=== PATIENT | female | born 1950 | race Caucasian/White ===

== ENCOUNTER 2016-09-08 15:52 | Inpatient (IN) | payer MEDICARE, MEDICAID ==
[~2016-09-08] VITALS: Ht 167.6 cm; Wt 70.8 kg
[~2016-09-08 15:52] MED LIST: AGM875T PO; ALBU8.5H2 INHALATION; ASPI-867 PO; ATEN25TA PO; ATOR20TA PO; CHOL200047 PO; CLOT30SO TOPICAL; DIPH50C PO; FLUT9.9S NS; GLAT20KI2 SUBQ; HUM100IN3 SUBQ; LEVO25TA5 PO; MAGN100T5 PO; MULT-1018 PO; MULT-946 PO; MUPI22OI2 TOPICAL; NYST60PO TP; OXYC5CAP4 PO; PAX20 PO; POLY17PO6 PO; TIZA4CAP PO; UBID100C25 PO; WARF2.5T82 PO
[2016-09-08 16:06] VITALS: BP 134/75; PULSE 84; RESP 22; O2SAT 99
--- NOTE | 2016-09-08 16:10 | ED.REPORT ---
HPI-Headache Date of Service Sep 08, 2016 ED Provider: Dr. Frank Yee M.D. A 66 year old female with a history of diabetes mellitus, MS, CVA, DVT, hypertension, seizures, chronic decubitus ulcer, and trigeminal neuralgia presents to the ED via EMS with right-sided jaw and gum pain onset today. The pain is severe, rated 10/10. The patient also reports swollen gums and a chronic decubitus ulcer worsening three days ago. Her son and registered nurse midwife reports reduced urination and reduced ROM of the jaw due to pain. The patient denies other symptoms. She was given 10mg oxycodone just prior to arrival, with no relief. The history is somewhat limited due patient's condition. Nursing Notes Stated Complaint: JAW AND HEAD PAIN Chief Complaint: General Complaint Nursing Notes Reviewed: Yes Allergies: Coded Allergies: Sulfa (Sulfonamide Antibiotics) (Verified Allergy, Severe, hives, 05/31/15 ) morphine (Verified Allergy, Severe, hives, 05/31/15) Scheduled Albuterol HFA (Proair HFA) 8.5 Gm Hfa.aer.ad 2 PUFFS INHALATION Q4H Amoxicillin/Clav K 875-125 mg (Amoxicillin/Clav K 875-125 mg) 875 Mg Tab 1 TAB PO BID Aspirin (Miniprin) 81 Mg Tablet.dr 81 MG PO DAILY Atenolol (Atenolol) 25 Mg Tablet 12.5 MG PO DAILY Atorvastatin (Lipitor) 20 Mg Tablet 20 MG PO HS Cholecalciferol (Vitamin D3) (Vitamin D3) 2,000 Unit Capsule 2,000 UNIT PO DAILY Clotrimazole 1% (Clotrimazole 1%) 30 Ml Solution 30 ML TOPICAL BID Diphenhydramine Hcl (Benadryl) 50 Mg Capsule 50 MG PO Q4-6H Fluticasone Propionate (Flonase Allergy Relief) 50 Mcg/Actuation [place].susp 9.9 ML NS DAILY Hum Insulin NPH/Reg Insulin Hm (HUMulin 70/30 U100 Insulin Kwikpen) 100 Unit/1 Ml Insuln.pen 35 UNIT SUBQ BID Levothyroxine (Levothyroxine) 25 Mcg Tablet 25 MCG PO DAILY MULTIVIT, IRON, MIN NO. 8, FA-Expunged Drug, ([id number] Drug, Do Not Renew!) 1 Each Tablet 1 EACH PO DAILY Magnesium Amino Acid Chelate (Magnesium) 100 Mg Tablet 100 MG PO BID Multivitamin (Multi Vitamin Daily) 1 Each Tablet 1 EACH PO DAILY Mupirocin (Mupirocin Ointment) 22 Gm Oint...g. 1 APPLIC TOPICAL BID Nystatin (Nystop) 60 Gm Powder 60 GM TP BID PARoxetine-Expunged Drug, Do Not Renew! (Paxil-Expunged Drug, Do Not Renew!) 20 Mg Tablet 50 MG PO DAILY Polyethylene Glycol 3350 (Miralax) 17 Gm Powd.pack 17 GM PO BID Tizanidine Hcl (Zanaflex) 4 Mg Capsule 4 MG PO BID Ubidecarenone (Co Q-10) 100 Mg Capsule 100 MG PO DAILY Warfarin Sodium (Warfarin Sodium) 2.5 Mg Tablet 2.5 MG PO DAILY Scheduled PRN oxyCODONE (oxyCODONE) 5 Mg Capsule 7.5 MG PO QID PRN PRN For Pain Miscellaneous Medications Glatiramer Acetate (Copaxone) 20 Mg Syringe 20 MG SUBQ Friday, , Fri General Time Seen by MD: 16:09 Chief Complaint Other (Jaw and Gum pain) Hx Obtained From: Patient, Son, EMS Arrived By: Ambulance Sudden in Onset?: No Onset Occurred: 5 - 8 hours ago Symptom Duration: Since onset Location: : Generalized (Right-sided jaw and gum pain) Quality: Painful Severity: Current: Moderate Severity: Maximum: Moderate Pertinent Negative: Relieved by nothing Related History: Reports: Hypertension, Trigeminal neuralgia Recent Healthcare: No recent doctor visit Similar Sx Previous: Yes Past Medical History Past Medical History Notes: Past Medical History 1. 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 There was a question of PFO, but apparently patient refused MARY, and this was at [facility]. 2. History of left proximal DVT in 2004. 3. Multiple sclerosis since 1993, as noted in the HPI. 4. Depression. 5. Hyperlipidemia. 6. Allergic rhinitis. 7. Urinary incontinence, requiring urostomy and previously had a suprapubic catheter, now has an ileal conduit with urostomy tube. 8. Insulin-dependent type 2 diabetes. 9. Hypertension. 10. History of asthma. 11. History of MRSA urinary tract infection with recurrent UTIs in the past. 12. Diastolic dysfunction and possible PFO on echo from March 2010. 13. History of seizures documented at [facility]. 14. Chronic wounds including decubitus ulcer 15. History of hypothyroidism. 16. Pseudomonas UTIs 17. Trigeminal Neuralgia Past Surgical History 1. Status post tubal ligation. 2. Status post umbilical hernia repair as a child. 3, History of partial ostectomy of sacral spine and coccygectomy in October 10, 2010. Smoking History Former Smoker Social History Lives with her son Other Social History: Good social support, Lives with children (Son), Local resident Ambulatory Status Wheelchair Review of Systems Review of Systems Note: + Right-sided jaw and gum pain, swollen gums, reduced ROM of jaw, decubitus ulcer Constitutional: Denies: Fever GI: Denies: Diarrhea, Vomiting Complete sys rev & neg: except as marked. Respiratory: Denies: Non-productive cough, Shortness of breath Female: Reports: Urination decreased Physical Exam Physical Exam Notes: Initial Vital Signs Vital Signs (First) Date Time Temp Pulse Resp B/P Pulse Ox O2 Delivery O2 Flow Rate FiO2 09/08/16 16:06 36.5 84 22 134/75 99 Room Air Initial VS: Reviewed Respiratory: Breath sounds normal, Clear to auscultation, No respiratory distress Cardiovascular: Regular rate & rhythm, Heart sounds normal Abdomen / GI: Soft, No guarding, No rebound Back: No CVA tenderness General/Constitutional: Awake, Alert Head / Eyes: Atraumatic, Normocephalic Temporal preauricular tenderness Neck: Supple, Full range of motion, No adenopathy ENT: Atraumatic, Airway patent, Mucous membranes moist No upper teeth No gingival lesion No gingival erythema or swelling Skin: Warm, Dry Decubitus Ulcer Notes: Extensive grade 2/3 pressure sores in [id number] diameter over sacrum/coccyx ANKLE/FOOT: Bilateral feet contractures Interpretation & Diagnostics Lab Results Interpretation Result Diagram: 09/08/16 1620 09/08/16 1620 Test 09/08/16 16:20 White Blood Count 6.7th/mm3 (3.8-10.1) Red Blood Count 3.84mil/mm3 (3.90-5.20) Hemoglobin 11.1g/dL (12.0-15.6) Hematocrit 36.2% (35.0-46.0) Mean Corpuscular Volume 94.3fL (81-100) Mean Corpuscular Hemoglobin 28.9pg (27.0-35.0) Mean Corpuscular Hemoglobin Concent 30.7% (32.0-37.0) Red Cell Distribution Width 17.6% (12.3-15.4) Platelet Count 358bil/L (150-400) Neutrophils (%) (Auto) 59.4% (40-74) Lymphocytes (%) (Auto) 25.8% (14-46) Monocytes (%) (Auto) 8.7% (4-12) Eosinophils (%) (Auto) 5.6% (0-5) Basophils (%) (Auto) 0.3% (0-3) Erythrocyte Sedimentation Rate 69mm/hr (0-40) Sodium Level 140mEq/L (134-144) Potassium Level 4.9mEq/L (3.5-5.2) Chloride Level 104mEq/L (97-108) Carbon Dioxide Level 18mmol/L (18-29) Blood Urea Nitrogen 45mg/dL (8-27) Creatinine 1.29mg/dL (0.57-1.00) Estimat Glomerular Filtration Rate 59mL/min (>59) Glucose Level 157mg/dL (60-99) Calcium Level 9.8mg/dL (8.5-10.1) Hold Hussein Top Tube Received (Received) CT Head Interpretation IMPRESSION: No acute intracranial abnormality. No explanation for jaw/head pain. Dictated by: Margo Horton M.D. on 09/08/2016 at 17:22 Study: Head CT no contrast Interpretation / Wet Read by: Interpret - Radiologist Re-Eval/Medical Decision Med Decision/Clinical Course Ultimately my differential diagnosis includes the following: Temporal arteritis Temporomandibular joint pain Trigeminal neuralgia. Her pain is improved with gabapentin and Tylenol and prednisone. My main rationale for hospitalization a horrible bedsores on the sacral area despite a hospital bed with a air mattress. The patient is also unable to eat in the set is noticed that her medic deterioration in the skin over the past couple of days as the patient has not been able to take and calories. Recommend consideration of temporal artery biopsy if this diagnosis remains high on the differential. Sedimentation rate is elevated which of course would be consistent with temporal arteritis but other etiologies certainly are possible for the elevated sedimentation rate. Source of Hx: Old records Re-Evaluation/Progress #1: Time of Eval: 19:01 )( Patient Status: Condition improved Re-Evaluation/Progress Note: Patient rechecked. She is still in pain. Discussed with patient CT results. Patient's son has arrived but is not currently in the room - will recheck when son is present. Re-Evaluation/Progress #2: Time of Eval: 20:28 )( Patient Status: Condition improved, Pain improved Re-Evaluation/Progress Note: Patient appears much more comfortable. Discussed with patient and her son lab and CT results, diagnosis, and plan for admit. Patient agrees with plan for care and all questions were addressed. I reexamined the patient at this time. At this time she has minimal if any left temporal artery tenderness and does have significant left temporomandibular joint tenderness. Consultation : Referral / Consult Name: Ulysses Alvarado MD Consulted With: Hospitalist Call Returned at: 21:08 Regional Clinical Research Associate: Agrees with eval, Agrees with plan, Accepts admit Counseled Regarding: Diagnosis, Lab results, Need for admission Discharge & Departure Impression: Primary Impression: Facial pain Additional Impression: Skin breakdown Disposition: ADMITTED TO HOSPITAL Discharge Condition All VS Reviewed: Yes Condition: Improved Referrals: Matilda Mendieta MD (PCP) Scribe Attestation Portions of this note were transcribed by Jocelin Watters. I, Dr. Yee, personally performed the history, physical exam, and medical decision-making; I reviewed and confirmed the accuracy of the information in the transcribed note. Signed by: Ida Gonsales, 09/08/2016, 23:10 copies to: Matilda Mendieta MD, Kirk H MD Sep 08, 2016 16:10 JOCELIN WATTERS Sep 08, 2016 16:23
--- NOTE | 2016-09-08 17:25 | DRSVH ---
PROCEDURE: CT BRAIN WITHOUT CONTRAST ([id number]) INDICATIONS: jaw/head pain TECHNIQUE: Noncontrast 4.5 mm thick angled axial sections acquired from the foramen magnum to the vertex, with c oronal reformats. COMPARISON: [facility], CT, CT BRAIN WO CON, 01/06/2016, 19:05. [facility], MR, MR BRAIN W&WO CON, 01/13/2016, 12:55. FINDINGS: Image quality: Excellent. CSF spaces: Basal cisterns are patent. No extra-axial fluid collections. The ventricles are symmet piedad in size and shape. Brain: No intracranial bleeds or masses. There is cerebral volume loss for age, with resultant vent ricular and sulcal prominence. No change in mild low density within the periventricular and subcortic al white matter, consistent with multiple sclerosis sequelae and/or small vessel ischemic disease. Th ere is intracranial internal carotid artery atherosclerosis. Skull and face: Calvarium and visualized facial bones appear intact, without suspicious lesions. Sinuses: Visualized sinuses and mastoids are clear. IMPRESSION: No acute intracranial abnormality. No explanation for jaw/head pain. Dictated by: Margo Horton M.D. on 09/08/2016 at 17:22 Approved by: Margo Horton M.D. on 09/08/2016 at 17:23
[2016-09-08 17:28] LABS: BASOPHILS % (AUTO) 0.3 % (0-3); EOSINOPHILS % (AUTO) 5.6 % (0-5); MONOCYTES % (AUTO) 8.7 % (4-12); Mean Corpuscular Hemoglobin 28.9 pg (27.0-35.0); Mean Corpuscular Volume 94.3 fL (81-100); NEUTROPHILS % (AUTO) 59.4 % (40-74); Platelet Count 358 bil/L (150-400)
[2016-09-08 18:20] LABS: ERYTHROCYTE SEDIMENTATION RATE 69 mm/hr (0-40)
[2016-09-08 19:02] VITALS: BP 127/70; PULSE 80; RESP 11; O2SAT 99
[2016-09-08] MEDS ORDERED: Ondansetron 2 mg/mL 2 mL Inj IVPUSH PRN (21:20)
[2016-09-08] MEDS ORDERED: Polyethylene Glycol (PEG) 17 Gm Powder PO PRN (21:20)
[2016-09-08] MEDS ORDERED: Alum-Mag Hydrox-Simeth 30 mL Suspension PO PRN (21:20)
--- NOTE | 2016-09-08 22:15 | PCM.HPMED ---
Subjective Date of Service Sep 08, 2016 Primary Provider: Admitting Physician: Ulysses Alvarado MD Primary Care Physician: Matilda Mendieta MD Attending Physician: Ulysses Alvarado MD Chief Complaint: Left sided Jaw and head pain History of Present Illness: Patient is a 66 y.o. F with a history of DM Type II, MS, CVA, DVT anticoagulated on warfarin, HTN, seizures, chronic decubitis ulcer, trigeminal neuraliga. She presented to the ED via EMS with jaw and gum pain that dramatically worsened over the past three days an is at its worst today. Patient stated that this pain has been ongoing for past few months intermittantly but has never been this bad before. She described the pain as severe stabbing/striking pain, rated 10/10 starting at her left TMJ and radiating across the left side of her face and head. Patient noted that she has swollen guns, reduced ROM of jaw, increased pain with touching of left face, chewing, and cold. Patient stated the prednisone and gabapentin have helped to reduce the pain, and oxycodone did not help. Additionally, patient noted several ulcers on her buttox that have begun to bleed and dysuria. Patient denies chest pain, chest pressure, change or loss in vision, fever, chills, shortness of breath. She noted that due to MS she is paralyzed from waist down. Histoy is limited due to chronic dysartheria from MS. PCP Dora Mendieta MD Neurologist Dr. Candace Curran Review of Systems: A comprehensive review of systems was conducted with the patient and found to be negative except as above in the History of Present Illness. Allergies Coded Allergies: Sulfa (Sulfonamide Antibiotics) (Verified Allergy, Severe, hives, 05/31/15 ) morphine (Verified Allergy, Severe, hives, 05/31/15) Home Medications Albuterol HFA (Proair HFA) 8.5 Gm Hfa.aer.ad 2 PUFFS INHALATION Q4H Amoxicillin/Clav K 875-125 mg (Amoxicillin/Clav K 875-125 mg) 875 Mg Tab 1 TAB PO BID Aspirin (Miniprin) 81 Mg Tablet. 81 MG PO DAILY Atenolol (Atenolol) 25 Mg Tablet 12.5 MG PO DAILY Atorvastatin (Lipitor) 20 Mg Tablet 20 MG PO HS Cholecalciferol (Vitamin D3) (Vitamin D3) 2,000 Unit Capsule 2,000 UNIT PO DAILY Clotrimazole 1% (Clotrimazole 1%) 30 Ml Solution 30 ML TOPICAL BID Diphenhydramine Hcl (Benadryl) 50 Mg Capsule 50 MG PO Q4-6H Fluticasone Propionate (Flonase Allergy Relief) 50 Mcg/Actuation [place].susp 9.9 ML NS DAILY Hum Insulin NPH/Reg Insulin Hm (HUMulin 70/30 U100 Insulin Kwikpen) 100 Unit/1 Ml Insuln.pen 35 UNIT SUBQ BID Levothyroxine (Levothyroxine) 25 Mcg Tablet 25 MCG PO DAILY MULTIVIT, IRON, MIN NO. 8, FA-Expunged Drug, ([id number] Drug, Do Not Renew!) 1 Each Tablet 1 EACH PO DAILY Magnesium Amino Acid Chelate (Magnesium) 100 Mg Tablet 100 MG PO BID Multivitamin (Multi Vitamin Daily) 1 Each Tablet 1 EACH PO DAILY Mupirocin (Mupirocin Ointment) 22 Gm Oint...g. 1 APPLIC TOPICAL BID Nystatin (Nystop) 60 Gm Powder 60 GM TP BID PARoxetine-Expunged Drug, Do Not Renew! (Paxil-Expunged Drug, Do Not Renew!) 20 Mg Tablet 50 MG PO DAILY Polyethylene Glycol 3350 (Miralax) 17 Gm Powd.pack 17 GM PO BID Tizanidine Hcl (Zanaflex) 4 Mg Capsule 4 MG PO BID Ubidecarenone (Co Q-10) 100 Mg Capsule 100 MG PO DAILY Warfarin Sodium (Warfarin Sodium) 2.5 Mg Tablet 2.5 MG PO DAILY oxyCODONE (oxyCODONE) 5 Mg Capsule 7.5 MG PO QID PRN PRN For Pain Glatiramer Acetate (Copaxone) 20 Mg Syringe 20 MG SUBQ Friday, , Fri PMH 1. 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 There was a question of PFO, but apparently patient refused MARY, and this was at [facility]. 2. History of left proximal DVT in 2004. 3. Multiple sclerosis since 1993, as noted in the HPI. 4. Depression. 5. Hyperlipidemia. 6. Allergic rhinitis. 7. Urinary incontinence, requiring urostomy and previously had a suprapubic catheter, now has an ileal conduit with urostomy tube. 8. Insulin-dependent type 2 diabetes. 9. Hypertension. 10. History of asthma. 11. History of MRSA urinary tract infection with recurrent UTIs in the past. 12. Diastolic dysfunction and possible PFO on echo from March 2010. 13. History of seizures documented at [facility]. 14. Chronic wounds including decubitus ulcer 15. History of hypothyroidism. 16. Pseudomonas UTIs 17. Trigeminal Neuralgia Surgical History 1. Status post tubal ligation. 2. Status post umbilical hernia repair as a child. 3, History of partial ostectomy of sacral spine and coccygectomy in October 10, 2010. Family History Mother and father of cancer Brother with stroke Social History Hx Alcohol Use: No Hx Substance Use: No Hx Tobacco Use: Yes (quit 2001) Smoking Status: Former Smoker Living Arrangement: with Family (Son) Exam Vital Signs Vital Sign - Last Date Time Temp Pulse Resp B/P Pulse Ox O2 Delivery O2 Flow Rate FiO2 09/08/16 19:02 80 11 127/70 99 Room Air 09/08/16 16:06 36.5 Exam General: No acute distress, well-developed, well-nourished, appropriately interactive, HEENT: Significant perauricular and left sided facial tenderness in CN V distribution, Normocephalic, atraumatic. External ears without defect. Pupils equal, round, and reactive to light and accommodation, mild horizontal nystagmus. Anicteric sclerae, moist conjunctivae, and no lid lag. moist oral mucosa Neck: Supple with full range of motion. No jugular venous distension. No bruits. No lymphadenopathy or thyromegaly. Cardiovascular: Regular rate and rhythm with no murmurs, rubs, or gallops appreciated Pulmonary: Clear to auscultation bilaterally with no crackles, wheezes, or rhonchi. Normal respiratory effort with no use of accessory muscles. Abdomen: Bowel tones present. Soft, nontender, nondistended. No hepatosplenomegaly or masses appreciated. Extremities: 0/5 strength, contractures and atrophy of lower extremities bilaterally at baseline from MS. No clubbing, cyanosis, edema, or lymphadenopathy appreciated. Skin: Extensive decubitus ulcers noted over sacrum and coccyx approximately 20cm in diameter Normal temperature, turgor, and texture; no rash Neurological: Expressive aphasia and dysarthria noted on exam at patients baseline. Normal muscle strength, tone, and bulk in upper extremities, lower extremities 0/5 strength and atrophy noted. Reflexes 1/4 bilateally upper extremities, 0/4 lower extremities, abnormal cerebellar testing at patient's baseline coordination, : suprapubic catheter in place, draining Psychiatric: Normal mood and affect. Alert and oriented to person, place, and time. Lab and Diagnostics Result Diagram: 09/08/16 1620 09/08/16 1620 X-Rays, CTs and MRIs CT Head IMPRESSION: No acute intracranial abnormality. No explanation for jaw/head pain. Dictated by: Margo Horton M.D. on 09/08/2016 at 17:22 Assessment & Plan Patient is a 66 y.o. F with a history of DM Type II, MS, CVA, DVT anticoagulated on warfarin, HTN, seizures, chronic decubitis ulcer, trigeminal neuraliga. Admitted for treatment of naturopathic pain, decubitus ulcers, ARGENIS. 1. Right Jaw pain Likely Trigeminal Neuralgia, acute on chronic. Present on admission - Differential diagnosis is Temporal Arteries - Patient has history of MS and trigmeinal neuralgia with no confirmed diagnosis on biopsy, and significant exacerbation over the past 48 hours - Continue Prednisone 60 mg PO QD - Continue Gabapentin 300 mg TID, titrate to pain - Surgery consulted in ED, will see patient in AM and determine if biopsy is indicated 2. Decubitus Ulcers, acute on chronic - Sever decubitus ulcers over sacrum and cocyx, no leukocytosis on CBC, patient is afebrile at admission - Nursing wound care orders place - Wound care consult placed - Repeat CBC in AM 3. Acute Kidney injury. Present on admission - Likely prerenal azotemia, no baseline Cr established, no previous labs - Continue to monitor I/O - Bladder scan ordered - Conservative IVF NS @ 80 mls/hr - Repeat BMP in AM Chronic conditions Insulin-dependent type 2 diabetes. 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 - Continue anticoagulation dosed per pharmacy Multiple sclerosis, presumed stable -continue home medication Depression. -continue home medication Hyperlipidemia. - Hold home medication Allergic rhinitis. -continue home medication Urinary incontinence, with suprapubic catheter, - Continue to monitor as above #3 Hypertension. -continue home medication History of asthma. - Duoneb Q6 PRN History of MRSA urinary tract infection with recurrent UTIs - UA ordered Diastolic dysfunction and possible PFO on echo from March 2010. -continue home medication History of seizures documented at [facility]. -continue home medication Chronic wounds including decubitus ulcer - Would eval ordered History of hypothyroidism. -continue home medication DVT prophylaxis: Warfarin CODE STATUS FULL CODE Patient is admitted under inpatient status with expected length of stay greater than 2 midnights due to severity of presenting symptoms, risk of adverse event, and complexity of treatment plan. Attending Statement The patient was seen and examined together with Dr. Salmeron on 09/08 and I agree with the history, exam and plan as outlined in the note above. STEPHEN SALMERON DO Sep 08, 2016 22:15 Ulysses Alvarado MD Sep 09, 2016 02:28
[2016-09-08] MEDS ORDERED: diphenhydrAMINE 25 mg Capsule PO PRN (22:45)
--- NOTE | 2016-09-08 22:48 | NUR ---
Arrival on Unit Arrived to [facility] rm 1022 at 2230. Report received at 2140. Pt does not ambulate, slideboard transfer to bed. Pt is repositioned and floated on pillows and on air mattress. Foam pad/ mepelex sheet over sacral ulcerations, current scant bleeding noted, no other drainage, dry flaking and darkened skin around perineal and thigh area. Severe muscle wasting bilateral lower extremeties and foot drop. Pt states positioning is sufficient and she is comfortable at this time Care continues
[2016-09-08] MEDS ORDERED: Glucose 40% Oral Gel 15 Gm Tube PO PRN (22:55)
[2016-09-08 22:56] VITALS: BP 131/73; PULSE 117; RESP 20; O2SAT 95
[2016-09-09] VITALS (7 sets, daily range): BP systolic 101–157; BP diastolic 59–88; PULSE 76–102; RESP 18; O2SAT 96–99
[2016-09-09] MEDS: 0.9% Sodium Chloride 1,000 ML IV SCH ×2 (00:21→12:23)
[2016-09-09] MEDS ORDERED: Heparin 5,000 Unit/mL Inj SUBQ SCH (00:30)
[2016-09-09] MEDS: oxyCODONE-Acetamin 10-325 mg Tablet PO PRN (05:26)
[2016-09-09 06:42] LABS: BASOPHILS % (AUTO) 0.3 % (0-3); EOSINOPHILS % (AUTO) 8.2 % (0-5); MONOCYTES % (AUTO) 11.8 % (4-12); Mean Corpuscular Hemoglobin 28.3 pg (27.0-35.0); Mean Corpuscular Volume 95.8 fL (81-100); Platelet Count 308 bil/L (150-400)
[2016-09-09 06:45] LABS: INR 1.51 ratio
[2016-09-09] MEDS: Insulin Human NPH 100 Unit/mL 3 mL Inj SUBQ SCH ×2 (07:30→16:30)
[2016-09-09] MEDS: Insulin LISPRO 300 Unit/3 mL Inj SUBQ SCH ×4 (08:00→22:00)
[2016-09-09] MEDS ORDERED: DIPH25CA6 PO (08:14)
[2016-09-09] MEDS ORDERED: PARO40TA3 PO (08:17)
[2016-09-09] MEDS ORDERED: TIZA4TAB4 PO (08:18)
[2016-09-09] MEDS: Fluticasone 0.05% 15 Spray/2 Gm 16 Gm Nasal Spray NASAL SCH (08:30)
[2016-09-09] MEDS ORDERED: GLATIRAMER SUBQ SCH (08:30)
[2016-09-09] MEDS ORDERED: MAGNESIUM AMINO ACID CHELATE PO SCH (08:30)
[2016-09-09] MEDS: Nystatin 100,000 Unit/Gm 15 Gm Powder TOPICAL SCH ×2 (08:30→22:38)
[2016-09-09] MEDS: predniSONE 20 mg Tablet PO SCH ×2 (08:30→16:33)
[2016-09-09] MEDS ORDERED: predniSONE 20 mg Tablet PO SCH (08:30)
[2016-09-09] MEDS: Mupirocin 2% 22 Gm Ointment TOPICAL SCH ×2 (08:30→22:37)
[2016-09-09] MEDS ORDERED: Insulin Human NPH-Reg 70-30 100 Unit/mL 3 mL Pen SUBQ SCH (08:30)
[2016-09-09] MEDS ORDERED: WARF2TAB7 PO (08:31)
[2016-09-09] MEDS ORDERED: BIOT10004 PO (08:35)
[2016-09-09] MEDS ORDERED: HUM100IN3 SUBQ (08:39)
--- NOTE | 2016-09-09 09:02 | NUR ---
MED REC: Med rec discussed with pt's son Kyrie, who is primary caregiver. Updated in computer, primary RN made aware, who will notify hospitalist.
[2016-09-09] MEDS ORDERED: HYDROmorphone 0.5 mg/0.5 mL iSecure Syringe IVPUSH PRN (11:37)
[2016-09-09] MEDS: HYDROmorphone 0.5 mg/0.5 mL iSecure Syringe IVPUSH PRN ×2 (12:19→16:31)
--- NOTE | 2016-09-09 12:40 | NUR ---
Casemanagement - IMM explained to patient. Verbal consent received. Unable to sign due to MS. Patient requested we notify son Lance by phone. Copy given to patient and placed in chart. Mally BURNETT/SOLEDAD
--- NOTE | 2016-09-09 13:10 | NUR ---
Pain/Skin/Swallow/Mobility Patient with increased Left sided facial pain. Unable to speak due to pain. Asking yes/no questions at this time for patient to nod if possible. IV Dilauded ordered for pain. Pt is NPO status pending surgery evaluation for biopsy. Not yet confirmed by surgery. Surgical MD paged. Also awaiting swallow evaluation if no surgical intervention today for diet and to resume home meds. Significant skin breakdown/decubitus ulcers on coccyx. Seen by [facility] today-please see [facility] notes. Antifungal/antibacterial ointments applied with [facility] RN. Patient is on PUP with [id number], float heels, [id number] bed.
--- NOTE | 2016-09-09 13:25 | NUR ---
Wound Care [facility] Patient seen for evaluation of sacral pressure ulcer that was present on admission due to lower extremity paralysis due to MS. Patient reports staying in bed most of the day at home and reports having air mattress at home to assist in wound healing and pressure relief. Patient reports long standing ulcer to sacrum that "gets better and worse but never heals". Patient reports increased bleeding over the weekend and presented to hospital due to facial pain and bleeding of ulcer. Multiple small ulcers present over an area measuring 6cm W x 5cmL x 0.3cm at deepest. One area covered in soft black eschar and Unstageable. Other areas range from Stage II to Stage III with red wound bases. Moderate bloody drainage noted. Cleaned all areas with NS. Applied skin prep to periwound, Mupirocin to open areas, and covered with sacral mepilex. Nursing to change dressing q48 hours and PRN soiling. Wound care to follow up as needed.
--- NOTE | 2016-09-09 14:23 | PCM.PHAPRO ---
Progress Warfarin Management by Pharmacy: -Indication: history of dvt -Inr Goal: 2-3 -Home Dose: warfarin 2.5 daily -Concurrent Anticoagulation: none -Inr on admit: 1.51 (am of 09/09) -Plan: will continue with home dose of warfarin 2.5mg. serial inr's have been ordered Kimberly Payton [facility] Sep 09, 2016 14:23
--- NOTE | 2016-09-09 16:15 | NUR ---
Social Work Note - Initial Assessment: D/A: See Initial Assessment, the Pt is a 66 y/o that was admitted under observation status for facial pain, severe skin breakdown. The Pts PCP is Matilda Mendieta and her primary insurance is Medicare with a [facility] supplement. EMR reviewed, the SW attempted to meet with the Pt at bedside to explain SW role and discuss discharge planning. The Pt was under extreme pain and unable to hear well, SW informed Nursing about the Pts pain. SW requested to contact the Pts son for additional assistance, Pt agreeable. SW t/c call to son Lance, initial assessment completed. The Pt lives with her son in a second floor apartment with an elevator. Her son reports that he has been her caregiver for about 24 years and assists with most her ADLs, she is wheelchair and bedbound (has a specialized bed). Lance reports that he is the Pts DPOA, paperwork requested. The Pt has a history of [facility] services and has had a stay at [facility]. The Pts son was informed that Wound Care would be consulted, had additional questions regarding nursing need. SW requested to have Nursing contact son regarding these questions. Surgery consulted in ED, will determine if biopsy is needed as per progress notes. Wound Care also involved. SW will continue to follow. P: The Pt is not ready to discharge at this time. Surgery has been consulted, will determine if biopsy is needed. Wound Care involved. SW will continue to follow for needs. CANDELARIO Corrales Bow Rehairer CANDELARIO Curtis Addendum: 09/09/16 at 1616 by SHAGUFTA AWAD Amended: Links added.
--- NOTE | 2016-09-09 18:26 | PCM.PNMED ---
Subjective Date of Service Sep 09, 2016 Subjective continued left facial pain. denies any other new issues/complaints Exam Vital Signs Vital Sign - Last Date Time Temp Pulse Resp B/P Pulse Ox O2 Delivery O2 Flow Rate FiO2 09/09/16 15:21 36.9 88 18 157/73 99 Room Air Intake and Output 09/08/16 09/08/16 09/09/16 Cumulative From/Thru 15:00 23:00 07:00 09/08/16 16:06 - 09/09/16 06:31 Intake Total 413 ml 413 ml Output Total 550 ml 550 ml Balance -137 ml -137 ml Intake Oral 0 ml 0 ml IV Total 413 ml 413 ml Output Urine Total 550 ml 550 ml # Bowel Movements 0 0 General: Alert, Cooperative, No Acute Distress Head: Normal Eyes: Scleral Anicteric Ears: Canals (clear. ), Other (non-tender) Nose: Mucous Membr Moist/[place] Mouth: Mucous Membr Moist/[place] Neck: Supple Chest & Lungs: Chest Wall Normal, Clear to auscultation & percussion Cardiovascular: Regular Rate/Rhythm Abdomen: Non-tender, Non-distended, Normoactive bowel tones, Soft Extremities: No cyanosis/clubbing/edma bilat Neurological: Grossly Neurologically Intact, Cranial Nerves 2-12 Intact, Normal Speech IVs and Medications Medications Reviewed: Medications were reviewed in detail Lab and Diagnostics Result Diagram: 09/09/1662109/09/16621 X-Rays, CTs and MRIs CT Head IMPRESSION: No acute intracranial abnormality. No explanation for jaw/head pain. Dictated by: Margo Horton M.D. on 09/08/2016 at 17:22 Assessment & Plan 66 y.o. F with a history of DM Type II, MS, CVA, DVT anticoagulated on warfarin , HTN, seizures, chronic decubitus ulcer, trigeminal neuralgia p/w ongoing and worsening left facial pain # Acute on chronic left facial and jaw pain. poa. ongoing - unclear exact etiology but possibly Trigeminal Neuralgia, acute on chronic. - Differential diagnosis is Temporal Arteries - Patient has history of MS and trigeminal neuralgia - Continue Prednisone 60 mg PO QD - Continue Gabapentin 300 mg TID, titrate to pain - Surgery consulted in ED, will f/u w/ official recs to determine if biopsy is indicated # Decubitus Ulcers, acute on chronic - Sever decubitus ulcers over sacrum and coccyx, no leukocytosis on CBC, patient is afebrile at admission - Nursing wound care - Wound care consult - Repeat CBC in AM # Acute Kidney injury noted on admission is actually a chronic kidney disease and at baseline. Present on admission - Continue to monitor I/O - f/u BMP Chronic conditions # Insulin-dependent type 2 diabetes. 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 - Continue anticoagulation dosed per pharmacy # Multiple sclerosis, presumed stable - continue home medication # Depression. stable -continue home medication # Hyperlipidemia. - Resume home medication # Allergic rhinitis. -continue home medication # Urinary incontinence, with suprapubic catheter, - Continue to monitor # Hypertension. -continue home medication # History of asthma. stable - Duoneb Q6 PRN # History of MRSA urinary tract infection with recurrent UTIs # Diastolic dysfunction and possible PFO on echo from March 2010. -continue home medication # History of seizures documented at [facility]. -continue home medication # History of hypothyroidism. -continue home medication DVT prophylaxis: Warfarin Dispo: 1-2 days pending better pain control and possible biopsy VTE Mechanical Devices: Intermittant Pneumatic CD Time spent 35 min Modesto Guan Sep 09, 2016 18:26 than 2 midnights due to severity of presenting symptoms, risk of adverse event, and complexity of treatment plan. VTE Mechanical Devices: Intermittant Pneumatic CD Modesto Guan Sep 09, 2016 18:26
[2016-09-09] MEDS ORDERED: diphenhydrAMINE 25 mg Capsule PO PRN (18:35)
[2016-09-09] MEDS ORDERED: Albuterol 2.5 mg/3 mL Inhalation Solution NEB PRN (20:00)
--- NOTE | 2016-09-09 22:03 | CONS ---
[address] [address] CONSULTATION REPORT PATIENT: LANNY PIRES : 1950 MR#: [id number] ADMIT: 09/08/2016 JOB ID: [id number] DATE OF SERVICE: CHIEF COMPLAINT AND IDENTIFICATION: I have been asked by Dr. Guan to see this 66-year-old female for consideration of temporal artery biopsy. HISTORY OF PRESENT ILLNESS: The patient presented to the emergency department with jaw and gum pain x3 days. It radiated across the left side of her face. This was associated with swollen gums, reduced range of motion of the jaw and hypersensitivity. She does have a known history of trigeminal neuralgia and a history of multiple sclerosis. PAST MEDICAL HISTORY: Includes diabetes, history of CVA, history of DVT, on warfarin, hypertension, seizures. MEDICATIONS: See extensive home medication list on her HPI. Notably, she is on beta-branden, is on insulin, and does take warfarin each day. PAST SURGICAL HISTORY: Per admission history and physical. FAMILY HISTORY: Per admission history and physical. SOCIAL HISTORY: Per admission history and physical. REVIEW OF SYSTEMS: Per admission history and physical. PHYSICAL EXAMINATION: Pleasant woman, somewhat dysarthric, seen late in the evening. Vital signs are stable. She has hypesthesia to touch on her face. LABORATORIES: Review of her labs demonstrate an INR of 1.51, a hematocrit of 36, sedimentation rate of 69 yesterday. IMPRESSION AND PLAN: The patient is seen late in the evening as there seemed to be some mixup in communication on her admission last night as to whether General Surgery was being consulted. I have explained to her that I will discuss her case in the morning with Dr. Guan, and if a temporal artery biopsy is requested by his service that I will then discuss pros and cons, and risks of the operation, with her and her son. I have told her that I will tentatively reserve time in the operating room tomorrow and will make her n.p.o. after midnight tonight, with plans to decide whether or not we are going to operate on her early tomorrow morning. She is agreeable to this. ARIEL
[2016-09-09] MEDS: TIZANIDINE 4 MG PO SCH (22:36)
[2016-09-09] MEDS: PARoxetine 20 mg Tablet PO SCH (22:38)
[2016-09-10] VITALS (7 sets, daily range): BP systolic 120–161; BP diastolic 67–77; PULSE 75–98; RESP 16–20; O2SAT 99–100
[2016-09-10] MEDS: 0.9% Sodium Chloride 1,000 ML IV SCH ×2 (01:10→15:17)
[2016-09-10] MEDS: HYDROmorphone 0.5 mg/0.5 mL iSecure Syringe IVPUSH PRN ×2 (01:10→10:42)
[2016-09-10] MEDS: oxyCODONE-Acetamin 10-325 mg Tablet PO PRN ×2 (04:11→23:20)
--- NOTE | 2016-09-10 06:32 | NUR ---
NPO/Skin/Pain Pt repositioned Q2h, ointment applied to undressed areas of skin breakdown, nystatin powder to groin. No BM this shift, has been 3+ days since last movement. Pt made NPO at 0600- Message from Dr Robbins relayed by battery charger at start of shift that her biopsy would be in the afternoon. Per NPO status held 1 unit of correctional insulin at HS. Pt pain managed with combination of PO and IV meds, her topical clove application, and ice/heat to face surface. Care continues
[2016-09-10 07:17] LABS: INR 1.52 ratio
--- NOTE | 2016-09-10 08:23 | PCM.PHAPRO ---
Progress Warfarin Management by Pharmacy: -Indication: history of dvt -Inr Goal: 2-3 -Home Dose: warfarin 2.5 daily -Concurrent Anticoagulation: none -Inr on admit: 1.51 (am of 09/09) and 1.52 on 09/10 -Plan: will give a one time dose this evening of warfarin 3.5mg and follow Kimberly Payton kannan Sep 10, 2016 08:23
[2016-09-10] MEDS: Nystatin 100,000 Unit/Gm 15 Gm Powder TOPICAL SCH ×2 (09:00→20:09)
[2016-09-10] MEDS: Mupirocin 2% 22 Gm Ointment TOPICAL SCH ×2 (09:00→20:09)
[2016-09-10] MEDS: Insulin LISPRO 300 Unit/3 mL Inj SUBQ SCH ×4 (10:24→23:43)
[2016-09-10] MEDS: Insulin Human NPH 100 Unit/mL 3 mL Inj SUBQ SCH ×2 (10:24→18:07)
[2016-09-10] MEDS ORDERED: ALPRAZolam 0.5 mg Tablet PO SCH (12:10)
--- NOTE | 2016-09-10 15:02 | NUR ---
NUTRITION ASSESSMENT: ASSESS: 66 yo female admitted for facial pain and severe skin breakdown related to lower extremity paralysis from MS. Pt currently on a dysphagia Mechanical diet. PMHX: pyelonephritis, multiple CVA's, ureterostomy, HTN, T2DM, ARGENIS with CKD, multiple sclerosis, depression, asthma, seizures, DVT. LABS: Reviewed. Glu 290, Alb 3.6. MEDS: Reviewed. GI: No BM reported at this time. SKIN: Pt with multiple sacral PU, 1 unstageable and the rest are stage II to stage III per wound care note. CURRENT WTS: 69.2 kg. Wt trends: Pt has lost 11% body weight in 15 months, Significant wt loss. DIET: Dysphagia Mechanical, no po intake yet. EST. NEEDS: MS/Wounds Calories: 0882-3015 kcal/day (25-35 kcal/kg BW) Protein: 85-105 g/day (1.2-1.5 g/kg BW) NUTRITION DIAGNOSIS: 1.) Increased nutrient needs related to increased demand for nutrients for healing as evidenced by Stage II and Stage III wounds on sacrum/buttock and significant weight loss of 11%. 2.) Chewing / swallowing difficulties related to chronic dysphagia as evidenced by current / chronic need for mechanically altered diet texture, ST following. NUTRITION INTERVENTION: 1.) Will add Glucerna all trays to encourage adequate po intake for wound healing and weight maintenance. MONITOR / EVAL: PO intake, labs, wounds, nutritional status. Continue to monitor per high nutrition risk guidelines.
[2016-09-10] MEDS: TIZANIDINE 4 MG PO SCH ×2 (15:16→19:54)
[2016-09-10] MEDS: Fluticasone 0.05% 15 Spray/2 Gm 16 Gm Nasal Spray NASAL SCH (15:19)
--- NOTE | 2016-09-10 16:33 | PROG NOTE ---
[address] [address] PROGRESS NOTE PATIENT: LANNY PIRES : 1950 MR#: [id number] ADMIT: 09/08/2016 JOB ID: [id number] DATE: 09/10/2016 Discussed the case with Dr. Ludwig. At this point, he would like to hold off on proceeding with a temporal artery biopsy. General Surgery will not actively follow this patient but I will review her chart on and be available for temporal artery biopsy if it is felt that that will be helpful to her care. DATE:
[2016-09-10] MEDS: carBAMazepine 100 mg ER12 Tablet PO SCH ×3 (18:07→20:30)
--- NOTE | 2016-09-10 18:14 | PCM.PNMED ---
Subjective Date of Service Sep 10, 2016 Subjective Patient continues to complain of severe paroxysmal left jaw pain. These episodes are short-lived and do not seem to be associated with anything in particular. She does have more pain with increased jaw usage. However, it does not appear to be classic claudication induced. Exam Vital Signs Vital Sign - Last Date Time Temp Pulse Resp B/P Pulse Ox O2 Delivery O2 Flow Rate FiO2 09/10/16 13:48 36.6 83 18 153/74 99 Room Air Intake and Output 09/09/16 09/09/16 09/10/16 Cumulative From/Thru 15:00 23:00 07:00 09/08/16 16:06 - 09/10/16 05:27 Intake Total 1760 ml 650 ml 2823 ml Output Total 760 ml 1050 ml 2360 ml Balance 1000 ml -400 ml 463 ml Intake Oral 800 ml 650 ml 1450 ml IV Total 960 ml 1373 ml Output Urine Total 760 ml 1050 ml 2360 ml # Bowel Movements 0 0 Exam General: Patient is in some distress due to the paroxysmal nature of her left jaw pain while she is laying supine with no jaw activity. HEENT: Head is atraumatic and normocephalic. Eyes: Pupils are equally round and reactive to light and accommodation. Extraocular muscles are intact. Sclera are white, anicteric. Subconjunctival mucosa is pink. Ears and nose are unremarkable. Oropharynx: There is no mucosal lesions, there is no thrush, there is no pharyngitis. Neck: Is supple, there are no nodes, or masses or tenderness. Chest: Is clear to auscultation and percussion. There are no rales, rhonchi, wheezes or rubs. Heart: Rate, rhythm is regular. There is no murmur, rub or gallop. Abdomen: Good bowel sounds are present. Abdomen is soft, obese, nontender, no organomegaly or masses were appreciated. Extremities: Are symmetrical and well perfused. There is foot drop of both lower extremities. There is some cachexia of all 4 extremities. There is no edema, there is no cellulitis, no rash. Neurologic: The patient is paraplegic. Cranial nerves II through XII are intact except for patient's hearing which is diminished. Psychiatric: Patients mood is calm and she shows no sign of agitation. Genital: Deferred Rectal: Deferred Lab and Diagnostics Result Diagram: 09/09/16 0622 09/10/16 0635 X-Rays, CTs and MRIs PROCEDURE: CT BRAIN WITHOUT CONTRAST ([id number]) INDICATIONS: jaw/head pain TECHNIQUE: Noncontrast 4.5 mm thick angled axial sections acquired from the foramen magnum to the vertex, with coronal reformats. COMPARISON: [facility], CT, CT BRAIN WO CON, 01/06/2016, 19:05. [facility], MR, MR BRAIN W&WO CON, 01/13/2016, 12:55. FINDINGS: Image quality: Excellent. CSF spaces: Basal cisterns are patent. No extra-axial fluid collections. The ventricles are symmetric in size and shape. Brain: No intracranial bleeds or masses. There is cerebral volume loss for age , with resultant ventricular and sulcal prominence. No change in mild low density within the periventricular and subcortical white matter, consistent with multiple sclerosis sequelae and/or small vessel ischemic disease. There is intracranial internal carotid artery atherosclerosis. Skull and face: Calvarium and visualized facial bones appear intact, without suspicious lesions. Sinuses: Visualized sinuses and mastoids are clear. IMPRESSION: No acute intracranial abnormality. No explanation for jaw/head pain. Dictated by: Margo Horton M.D. on 09/08/2016 at 17:22 Approved by: Margo Horton M.D. on 09/08/2016 at 17:23 Assessment & Plan The patient is a 66 y.o. female with a history of Type II DM, MS, CVA, DVT anticoagulated on warfarin, HTN, seizures, chronic decubitus ulcer, trigeminal neuralgia present on admission and ongoing with worsening left facial pain. Patient was admitted to the hospital service for further evaluation and treatment. # Acute on chronic left facial and jaw pain. Present on admission. ongoing - The left jaw pain is of unclear exact etiology but is likely due to Trigeminal Neuralgia, acute on chronic. - Differential diagnosis is Temporal Arteritis - Patient has history of MS and trigeminal neuralgia - We will continue Prednisone 60 mg PO QD for now although there does not appear to be any improvement as of yet in the patient's pain. - We will continue Gabapentin 300 mg TID, titrate to pain - We will add Tegretol 100 mg by mouth twice a day - Consider neurology consultation .- I have discussed the patient's case with the patient's son Lance is concerned the patient might be going to an unnecessary temporal artery biopsy procedure. - Gen. Surgery was consulted in ED. I spoke with Dr. Kingsley Robbins today and have decided not to proceed with the patient's temporal artery biopsy due to the likelihood that a) the patient's pain is most likely due to trigeminal neuralgia (b) the old from temporal artery biopsy in this situation is likely low (c) the patient and the patient's son are somewhat reluctant to have the surgery. - We will check MRI of the brain and MRI of the temporomandibular joints in a.m. # Decubitus Ulcers, acute on chronic - Severe decubitus ulcers over sacrum and coccyx, no leukocytosis on CBC, patient is afebrile at admission - We will continue Nursing wound care per wound care consult - Wound care consult - Repeat CBC in AM # Acute Kidney injury noted on admission is actually a chronic kidney disease and at baseline. Present on admission - Continue to monitor I/O - f/u BMP Chronic conditions # Insulin-dependent type 2 diabetes. 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 - Continue anticoagulation with heparin dosed per pharmacy # Multiple sclerosis, presumed stable - We will continue home medication # Depression. stable -We will continue home medication # Hyperlipidemia. - We will continue home medication # Allergic rhinitis. -We will continue home medication # Urinary incontinence, with suprapubic catheter, - We will continue to monitor # Hypertension. -We will continue home medication # History of asthma. stable - We will continue Duoneb Q6 PRN # History of MRSA urinary tract infection with recurrent UTIs # Diastolic dysfunction and possible PFO on echo from March 2010. -continue home medication # History of seizures documented at [facility]. -continue home medication # History of hypothyroidism. -continue home medication DVT prophylaxis: Warfarin Dispo: 1-2 days pending better pain control and possible biopsy Pain Evaluation: Adequate Pain Control GI Prophylaxis: Proton Pump Inhibitor VTE Prophylaxis: Theraputic Anticoag with Warfarin VTE Mechanical Devices: Intermittant Pneumatic CD Resuscitation Status: CPR: Attempt Resuscitation Reji Ludwig MD Sep 10, 2016 18:14
--- NOTE | 2016-09-10 19:06 | NUR ---
PAIN/REPOSITIONING Patient complained of 8/10 sharp shooting pain to left side of face, which also hurts her gums and jaw. Medicated with dilaudid 0.5mg which patient stated was effective. Also uses own clove oil on gums to help with relief. New medication started today to help with pain. Repositioned every 2 hours for pressure relief. Care continues.
[2016-09-10] MEDS: PARoxetine 20 mg Tablet PO SCH (19:56)
[2016-09-10] MEDS: Pantoprazole 40 mg ER24 Tablet PO SCH (19:56)
[2016-09-11 00:35] VITALS: BP 149/81; PULSE 80; RESP 18; O2SAT 99
[2016-09-11] MEDS: 0.9% Sodium Chloride 1,000 ML IV SCH ×2 (02:53→16:32)
[2016-09-11] MEDS: HYDROmorphone 0.5 mg/0.5 mL iSecure Syringe IVPUSH PRN ×2 (03:01→16:45)
--- NOTE | 2016-09-11 04:37 | NUR ---
Constipation/Skin/Pain Pt reports pain in jaw has improved with tegratol, but does experience sore gums- given warm salt water to rinse mouth, she also uses clove oil. Pain in legs and back, given dilauded IV after PO med ineffective. SCD removed to allow BLE to cool off, pt reports good results. Edema noted in feet. Given miralax for constipation, pt attempts to have BM and is found to be impacted by dry charge process attendant- large hard BM produced. Good PO fluid intake, no reports of n/v, IV NS running at 80, urostomy intact and draining, nystatin applied to skin on buttocks groin and under breasts, bactroban applied to open skin areas not covered by mepelex on sacrum. TQ2, AOx4. Care continues
[2016-09-11 05:39] VITALS: BP 116/72; PULSE 76; RESP 18; O2SAT 98
[2016-09-11] MEDS: carBAMazepine 100 mg ER12 Tablet PO SCH ×2 (06:41→20:56)
[2016-09-11] MEDS: oxyCODONE-Acetamin 10-325 mg Tablet PO PRN (06:46)
[2016-09-11 07:35] LABS: BASOPHILS % (AUTO) 0.2 % (0-3); EOSINOPHILS % (AUTO) 0.2 % (0-5); INR 1.91 ratio; MONOCYTES % (AUTO) 10.5 % (4-12); Mean Corpuscular Hemoglobin 28.7 pg (27.0-35.0); Mean Corpuscular Volume 95.6 fL (81-100); NEUTROPHILS % (AUTO) 62.5 % (40-74); Platelet Count 260 bil/L (150-400)
[2016-09-11] MEDS: Pantoprazole 40 mg ER24 Tablet PO SCH (07:44)
[2016-09-11 07:51] LABS: Magnesium 2.1 mg/dL (1.6-2.6)
[2016-09-11] MEDS: Fluticasone 0.05% 15 Spray/2 Gm 16 Gm Nasal Spray NASAL SCH (08:30)
[2016-09-11] MEDS: Insulin Human NPH 100 Unit/mL 3 mL Inj SUBQ SCH ×2 (08:32→17:45)
[2016-09-11] MEDS: predniSONE 20 mg Tablet PO SCH (08:32)
[2016-09-11] MEDS: Insulin LISPRO 300 Unit/3 mL Inj SUBQ SCH ×4 (08:32→21:11)
[2016-09-11] MEDS: TIZANIDINE 4 MG PO SCH ×2 (08:33→20:55)
[2016-09-11 09:57] VITALS: PULSE 68
[2016-09-11 10:45] VITALS: BP 121/74; PULSE 71; RESP 18; O2SAT 96
--- NOTE | 2016-09-11 12:13 | NUR ---
Pt off unit Pt to MRI at 1210 hrs. via bed. Addendum: 09/11/16 at 1354 by NISSA BARNHART RN Pt returned to [facility] from MRI at 1345 hr.s
[2016-09-11] MEDS: Mupirocin 2% 22 Gm Ointment TOPICAL SCH ×2 (14:11→20:56)
[2016-09-11] MEDS: Nystatin 100,000 Unit/Gm 15 Gm Powder TOPICAL SCH ×2 (14:20→20:57)
--- NOTE | 2016-09-11 14:35 | DRSVH ---
PROCEDURE: MRI BRAIN WITHOUT CONTRAST ([id number]) INDICATIONS: severe left jaw pain TECHNIQUE: Non-contrast axial T1 spin echo, axial T2 fast spin echo, sagittal and axial FLAIR, coronal T2 fast s pin echo, axial gradient echo, axial diffusion and ADC through the brain. COMPARISON: [facility], CT, CT BRAIN WO CON, 01/06/2016, 19:05. [facility], CT, CT BRAIN WO CON, 09/08/2016, 16:59. [facility], CT, BRAIN W/O CONTRAST, 04/21/2010, 2 2:31. MR, STROKE PROTOCOL (PNL), 04/13/2010, 10:35. MR, STROKE PROTOCOL (PNL), 04/23/2010, 16:57. [facility], MR, MR BRAIN W&WO CON, 01/13/2016, 12:55. FINDINGS: Image quality: Excellent. CSF spaces: Diffuse prominence of the CSF space is noted. Ventricles appear symmetric in shape. Bas al cisterns are patent. No extra-axial fluid collections. Brain: No intracranial bleeds or mass effects. There is cerebral volume loss for age. There are se [place]issett periventricular and deep white matter chronic small vessel ischemic changes. Brainstem appears normal. Diffusion-weighted images show no acute ischemic insults numerous small lacunar infarcts in noted in the cerebral hemispheres and the left cerebellar hemisphere which is stable compared to prio r MRIs. Punctate foci of hypointense susceptibility weighted signal noted in the right frontal lobe, putamen bilaterally, the left temporal lobe, the jayant and the anterior aspect of the medulla. Normal intravascular flow voids are present. Skull and face: Calvarial bone marrow is normal in signal. Orbits are normal. Sinuses: Sinuses and mastoids are clear. IMPRESSION: 1. No acute intracranial disease process. 2. Numerous, chronic, small, lacunar infarcts stable compared to prior MRI examination obtained . Multiple chronic infarcts are suspicious for underlying vasculitis. 3. Severe periventricular and subcortical white matter chronic microvascular ischemic changes. 4. Punctate susceptibility weighted hypointensities in the right frontal lobe bilateral putamen, left temporal lobe, jayant and medulla. Finding is nonspecific but given the distribution suspicious for ch ronic hypertensive micro-bleeds. Please correlate with clinical data. Dictated by: Yamini Omer MD, PhD on 09/11/2016 at 14:13 Approved by: Yamini Omer MD, PhD on 09/11/2016 at 14:33
--- NOTE | 2016-09-11 14:38 | DRSVH ---
PROCEDURE: MRI TEMPOROMANDIBULAR JOINTS ([id number]) INDICATIONS: severe left jaw pain TECHNIQUE: Axial T1 spin echo, coronal and sagittal PD fast spin echo through the temporomandibular joints, in b oth the closed- and open-mouth positions. COMPARISON: None. FINDINGS: Image quality: Image quality severely limited by patient motion artifact. No temporomandibular joint effusions are identified. No bony erosions or osteophytes. The marrow sign al of the osseous structures of the abdomen of the joints is normal. Open closed mouth views are nond iagnostic due to motion artifact. IMPRESSION: 1. No evidence of joint effusion, bony erosion or osteophytosis involving the temporomandibular joint s. 2. Functional status of the temporomandibular joints cannot be evaluated due to patient motion artifa ct. Dictated by: Yamini Omer MD, PhD on 09/11/2016 at 14:34 Approved by: Yamini Omer MD, PhD on 09/11/2016 at 14:37
--- NOTE | 2016-09-11 15:29 | NUR ---
Social Work-readiness for discharge: Data:EMR reviewed. PT is on day 3 of hospitalization for facial pain per H&P. MD anticipate 1-2 more days. Pt resides at home and son provides care for pt at home. Pt uses w/c at baseline. Pt to have MRI today. Anticipate pt to return home with son at discharge. SW will continue to follow. Assessment:Pt who is w/c bound at baseline. Plan:Pt to discharge home with son when medically stable. Son provides care at home. SW will continue to follow. CANDELARIO Curtis
--- NOTE | 2016-09-11 16:10 | NUR ---
Facial/jaw pain This a.m. pt c/o left jaw pain of 8/10. Pt requested an ice pack and application of the ice pack provided excellent relief. Pt also feels that the addition of Tegretol has also helped with her pain. Pt remains on dysphagia mechanical diet because of discomfort in her jaw while chewing. Pt had an MRI of the brain and TMJ today. Pt was able to eat most of her lunch this afternoon and appears in good spirits. Neurology consult has been requested by hospitalist. Care continues.
[2016-09-11 17:17] VITALS: BP 149/86; PULSE 75; RESP 16; O2SAT 98
[2016-09-11] MEDS: PARoxetine 20 mg Tablet PO SCH (20:57)
[2016-09-11 21:20] VITALS: BP 174/83; PULSE 84; RESP 16; O2SAT 92
--- NOTE | 2016-09-11 22:18 | PCM.PNMED ---
Subjective Date of Service Sep 11, 2016 Subjective Patient states that after she took her Tegretol dose this morning she had 4 hours of pain-free. Which she has not had an couple of months. Later in the day however she continued to have severe intractable jaw pain which is now more in the area of her chin just left of midline. Exam Vital Signs Vital Sign - Last Date Time Temp Pulse Resp B/P Pulse Ox O2 Delivery O2 Flow Rate FiO2 09/11/16 17:17 36.6 75 16 149/86 98 09/11/16 10:45 Room Air Intake and Output 09/10/16 09/10/16 09/11/16 Cumulative From/Thru 15:00 23:00 07:00 09/08/16 16:06 - 09/11/16 06:44 Intake Total 1010 ml 2028 ml 1629 ml 7490 ml Output Total 1250 ml 1900 ml 5510 ml Balance 1010 ml 778 ml -271 ml 1980 ml Intake Oral 1196 ml 680 ml 3326 ml IV Total 1010 ml 832 ml 949 ml 4164 ml Output Urine Total 1250 ml 1900 ml 5510 ml # Bowel Movements 0 1 1 Exam General: Patient continues to be in some distress due to her jaw pain. HEENT: Head is atraumatic and normocephalic. Eyes: Pupils are equally round and reactive to light and accommodation. Extraocular muscles are intact. Sclera are white, anicteric. Subconjunctival mucosa is pink. Ears and nose are unremarkable. Oropharynx: There is no mucosal lesions, there is no thrush, there is no pharyngitis. Neck: Is supple, there are no nodes, or masses or tenderness. Chest: Is clear to auscultation and percussion. There are no rales, rhonchi, wheezes or rubs. Heart: Rate, rhythm is regular. There is no murmur, rub or gallop. Abdomen: Good bowel sounds are present. Abdomen is soft, obese, nontender, no organomegaly or masses were appreciated. Extremities: Are symmetrical and well perfused. There is foot drop of both lower extremities. There is some cachexia of all 4 extremities. There is no edema, there is no cellulitis, no rash. Neurologic: The patient is paraplegic. Cranial nerves II through XII are intact except for patient's hearing which is diminished. Psychiatric: Patients mood is calm and she shows no sign of agitation. Genital: Deferred Rectal: Deferred Lab and Diagnostics Result Diagram: 09/11/1662509/11/16625 X-Rays, CTs and MRIs PROCEDURE: CT BRAIN WITHOUT CONTRAST ([id number]) INDICATIONS: jaw/head pain TECHNIQUE: Noncontrast 4.5 mm thick angled axial sections acquired from the foramen magnum to the vertex, with coronal reformats. COMPARISON: [facility], CT, CT BRAIN WO CON, 01/06/2016, 19:05. [facility], MR, MR BRAIN W&WO CON, 01/13/2016, 12:55. FINDINGS: Image quality: Excellent. CSF spaces: Basal cisterns are patent. No extra-axial fluid collections. The ventricles are symmetric in size and shape. Brain: No intracranial bleeds or masses. There is cerebral volume loss for age , with resultant ventricular and sulcal prominence. No change in mild low density within the periventricular and subcortical white matter, consistent with multiple sclerosis sequelae and/or small vessel ischemic disease. There is intracranial internal carotid artery atherosclerosis. Skull and face: Calvarium and visualized facial bones appear intact, without suspicious lesions. Sinuses: Visualized sinuses and mastoids are clear. IMPRESSION: No acute intracranial abnormality. No explanation for jaw/head pain. Dictated by: Margo Horton M.D. on 09/08/2016 at 17:22 Approved by: Margo Horton M.D. on 09/08/2016 at 17:23 PROCEDURE: MRI BRAIN WITHOUT CONTRAST ([id number]) INDICATIONS: severe left jaw pain TECHNIQUE: Non-contrast axial T1 spin echo, axial T2 fast spin echo, sagittal and axial FLAIR, coronal T2 fast spin echo, axial gradient echo, axial diffusion and ADC through the brain. COMPARISON: [facility], CT, CT BRAIN WO CON, 01/06/2016, 19:05. [facility], CT, CT BRAIN WO CON, 09/08/2016, 16:59. [facility], CT, BRAIN W/O CONTRAST, 04/21/2010, 22:31. MR, STROKE PROTOCOL (PNL) , 04/13/2010, 10:35. MR, STROKE PROTOCOL (PNL), 04/23/2010, 16:57. [facility], MR, MR BRAIN W&WO CON, 01/13/2016, 12:55. FINDINGS: Image quality: Excellent. CSF spaces: Diffuse prominence of the CSF space is noted. Ventricles appear symmetric in shape. Basal cisterns are patent. No extra-axial fluid collections. Brain: No intracranial bleeds or mass effects. There is cerebral volume loss for age. There are severe periventricular and deep white matter chronic small vessel ischemic changes. Brainstem appears normal. Diffusion-weighted images show no acute ischemic insults numerous small lacunar infarcts in noted in the cerebral hemispheres and the left cerebellar hemisphere which is stable compared to prior MRIs. Punctate foci of hypointense susceptibility weighted signal noted in the right frontal lobe, putamen bilaterally, the left temporal lobe, the jayant and the anterior aspect of the medulla. Normal intravascular flow voids are present. Skull and face: Calvarial bone marrow is normal in signal. Orbits are normal. Sinuses: Sinuses and mastoids are clear. IMPRESSION: 1. No acute intracranial disease process. 2. Numerous, chronic, small, lacunar infarcts stable compared to prior MRI examination obtained 01/13/16. Multiple chronic infarcts are suspicious for underlying vasculitis. 3. Severe periventricular and subcortical white matter chronic microvascular ischemic changes. 4. Punctate susceptibility weighted hypointensities in the right frontal lobe bilateral putamen, left temporal lobe, jayant and medulla. Finding is nonspecific but given the distribution suspicious for chronic hypertensive micro-bleeds. Please correlate with clinical data. Dictated by: Yamini Omer MD, PhD on 09/11/2016 at 14:13 Approved by: Yamini Omer MD, PhD on 09/11/2016 at 14:33 PROCEDURE: MRI TEMPOROMANDIBULAR JOINTS ([id number]) INDICATIONS: severe left jaw pain TECHNIQUE: Axial T1 spin echo, coronal and sagittal PD fast spin echo through the temporomandibular joints, in both the closed- and open-mouth positions. COMPARISON: None. FINDINGS: Image quality: Image quality severely limited by patient motion artifact. No temporomandibular joint effusions are identified. No bony erosions or osteophytes. The marrow signal of the osseous structures of the abdomen of the joints is normal. Open closed mouth views are nondiagnostic due to motion artifact. IMPRESSION: 1. No evidence of joint effusion, bony erosion or osteophytosis involving the temporomandibular joints. 2. Functional status of the temporomandibular joints cannot be evaluated due to patient motion artifact. Dictated by: Yamini Omer MD, PhD on 09/11/2016 at 14:34 Approved by: Yamini Omer MD, PhD on 09/11/2016 at 14:37 Assessment & Plan The patient is a 66 y.o. female with a history of Type II DM, MS, CVA, DVT anticoagulated on warfarin, HTN, seizures, chronic decubitus ulcer, trigeminal neuralgia present on admission and ongoing with worsening left facial pain. Patient was admitted to the hospital service for further evaluation and treatment. # Acute on chronic left facial and jaw pain. Present on admission. ongoing - The left jaw pain is of unclear exact etiology but is likely due to Trigeminal Neuralgia, acute on chronic. - Differential diagnosis is Temporal Arteritis especially given the new MRI findings of possible vasculitis. - Patient has history of MS and trigeminal neuralgia - We will continue Prednisone 60 mg PO QD for now although there does not appear to be any improvement as of yet in the patient's pain. - We will continue Gabapentin 300 mg TID, titrate to pain - We will add Tegretol 100 mg by mouth twice a day - Consider neurology consultation .- I have discussed the patient's case with Dr. Castellon of neurology and he states that patients with multiple sclerosis can get both temporal arteritis and /or vasculitis as well as trigeminal neuralgia. He will see the patient in consultation. - Gen. Surgery was consulted in ED. I will reconsult Dr. Kingsley Robbins for possible temporal artery biopsy tomorrow. # Decubitus Ulcers, acute on chronic - Severe decubitus ulcers over sacrum and coccyx, no leukocytosis on CBC, patient is afebrile at admission - We will continue Nursing wound care per wound care consult - Wound care consult - Repeat CBC in AM # Acute Kidney injury noted on admission on chronic kidney disease Present on admission - Renal function appears to continue to improve. - Continue to monitor I/O - We will continue to check daily labs. Chronic conditions # Insulin-dependent type 2 diabetes. 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 - Continue anticoagulation with heparin dosed per pharmacy # Multiple sclerosis, presumed stable - We will continue home medication # Depression. stable -We will continue home medication # Hyperlipidemia. - We will continue home medication # Allergic rhinitis. -We will continue home medication # Urinary incontinence, with suprapubic catheter, - We will continue to monitor # Hypertension. -We will continue home medication # History of asthma. stable - We will continue Duoneb Q6 PRN # History of MRSA urinary tract infection with recurrent UTIs # Diastolic dysfunction and possible PFO on echo from March 2010. -continue home medication # History of seizures documented at [facility]. -continue home medication # History of hypothyroidism. -continue home medication DVT prophylaxis: Warfarin Dispo: 1-2 days pending better pain control and possible biopsy Pain Evaluation: Adequate Pain Control GI Prophylaxis: Proton Pump Inhibitor VTE Prophylaxis: Theraputic Anticoag with Warfarin VTE Mechanical Devices: Intermittant Pneumatic CD Resuscitation Status: CPR: Attempt Resuscitation Reji Ludwig MD Sep 11, 2016 22:18
[2016-09-12] VITALS (13 sets, daily range): BP systolic 130–164; BP diastolic 56–77; PULSE 70–83; RESP 10–18; O2SAT 97–100
--- NOTE | 2016-09-12 04:07 | NUR ---
Activity/Pain Patient on Q2hour turns, able to assist somewhat with repositioning. No c/o breakthrough pain, refusing offer for pain meds, states its not needed.
[2016-09-12] MEDS: 0.9% Sodium Chloride 1,000 ML IV SCH ×3 (04:57→19:51)
[2016-09-12] MEDS: HYDROmorphone 0.5 mg/0.5 mL iSecure Syringe IVPUSH PRN ×4 (05:46→19:12)
[2016-09-12 07:04] LABS: INR 2.41 ratio
[2016-09-12 07:06] LABS: BASOPHILS % (AUTO) 0 % (0-3); EOSINOPHILS % (AUTO) 0 % (0-5); MONOCYTES % (AUTO) 6.4 % (4-12); Mean Corpuscular Hemoglobin 28.7 pg (27.0-35.0); Mean Corpuscular Volume 93.8 fL (81-100); NEUTROPHILS % (AUTO) 68.2 % (40-74); Platelet Count 305 bil/L (150-400)
[2016-09-12] MEDS: Insulin Human NPH 100 Unit/mL 3 mL Inj SUBQ SCH ×2 (07:30→17:10)
[2016-09-12] MEDS: Pantoprazole 40 mg ER24 Tablet PO SCH (07:30)
[2016-09-12] MEDS: Insulin LISPRO 300 Unit/3 mL Inj SUBQ SCH ×4 (08:00→21:32)
[2016-09-12] MEDS: carBAMazepine 100 mg ER12 Tablet PO SCH ×2 (08:30→20:20)
[2016-09-12] MEDS: Fluticasone 0.05% 15 Spray/2 Gm 16 Gm Nasal Spray NASAL SCH (08:30)
[2016-09-12] MEDS: TIZANIDINE 4 MG PO SCH ×2 (08:30→20:21)
[2016-09-12] MEDS: Nystatin 100,000 Unit/Gm 15 Gm Powder TOPICAL SCH ×2 (08:30→20:08)
[2016-09-12] MEDS: predniSONE 20 mg Tablet PO SCH (08:30)
[2016-09-12] MEDS: Mupirocin 2% 22 Gm Ointment TOPICAL SCH ×2 (08:30→20:08)
--- NOTE | 2016-09-12 10:06 | PCM.HPANE ---
Patient Data Surgeon Admitting Provider:Ulysses Alvarado MD Attending Provider:Ulysses Alvarado MD Primary Care Physician:Matilda Mendieta MD Other Provider: Reason for Visit Facial Pain,Severe Skin Breakdown FACIAL PAIN,SEVERE SKIN BREAKDOWN Ht/WT & BMI Height (Feet): 5 Height (Inches): 6.00 Weight (Kilograms): 69.300 Body Mass Index 24.52 Allergies Coded Allergies: Sulfa (Sulfonamide Antibiotics) (Verified Allergy, Severe, hives, 05/31/15 ) morphine (Verified Allergy, Severe, hives, 05/31/15) Past Anesthesia History Anesthesia History: Denies:: Abnormal Airway, Anesthesia Reactions, Difficult Intubation Diabetes History Hx Diabetes?: Yes Current Bedside Blood Glucose: 275 MRSA MRSA: No Medications Active Scripts Mupirocin (Mupirocin Ointment)22 Gm Oint...g.1 Applic TOPICAL BID #1 Prov:Андрей Burk MD 01/20/16 Reported Medications Hum Insulin NPH/Reg Insulin Hm (HUMulin 70/30 U100 Insulin Kwikpen)100 Unit/1 Ml Insuln.pen44 Unit SUBQ BID #1 PENINJ Ref 0 09/09/16 Biotin 1,000 Mcg Tab.chew1,000 Mcg PO DAILY 09/09/16 Warfarin Sodium 2 Mg Tablet2 Mg PO DAILY 30 Days Ref 0 3mg on Wednesdays09/09/16 Tizanidine 4 Mg Tablet2 Mg PO BID PRN For Spasm #30 09/09/16 Paroxetine 40 Mg Fospgf95 Mg PO HS 30 Days Ref 0 09/09/16 diphenhydrAMINE HCl (Benadryl)25 Mg Lgffdgu02 Mg PO q4-6h PRN Ref 0 09/09/16 Nystatin (Nystop)60 Gm Ojhpgq21 Gm TP BID 12/29/15 Ubidecarenone (Co Q-10)100 Mg Rufcdnp199 Mg PO DAILY 05/31/15 Albuterol HFA (Proair HFA)8.5 Gm Hfa.aer.ad2 Puffs INHALATION Q4H #1 INHALER 05/31/15 oxyCODONE 5 Mg Capsule7.5 Mg PO TID PRN For Pain Ref 0 05/31/15 Magnesium Amino Acid Chelate (Magnesium)100 Mg Vtkhdt138 Mg PO BID 05/31/15 Polyethylene Glycol 3350 (Miralax)17 Gm Powd.pack17 Gm PO BID 05/31/15 Levothyroxine 25 Mcg Wtixkz10 Mcg PO DAILY Ref 0 05/31/15 Fluticasone Propionate (Flonase Allergy Relief)50 Mcg/Actuation [place].susp9.9 Ml NS DAILY 05/31/15 Clotrimazole 1% 30 Ml Yhbxsosn08 Ml TOPICAL BID 05/31/15 Atorvastatin (Lipitor)20 Mg Vjucxx04 Mg PO HS Ref 0 05/31/15 Atenolol 25 Mg Ytbazw39.5 Mg PO DAILY #30 TABLET Ref 0 05/31/15 Discontinued Reported Medications Cholecalciferol (Vitamin D3) (Vitamin D3)2,000 Unit Capsule2,000 Unit PO DAILY 05/31/15 Multivitamin (Multi Vitamin Daily)1 Each Tablet1 Each PO DAILY 30 Days Ref 0 05/31/15 Diphenhydramine Hcl (Benadryl)50 Mg Onmloge49 Mg PO Q4-6H 05/31/15 Glatiramer Acetate (Copaxone)20 Mg Qghmrku00 Mg SUBQ Friday, , Fri05/31/15 MULTIVIT, IRON, MIN NO. 8, FA-Expunged Drug, ([id number]-U-Ghcbdlqm Drug, Do Not Renew!)1 Each Tablet1 Each PO DAILY 05/18/13 Aspirin (Miniprin)81 Mg Tablet.dr81 Mg PO DAILY 07/21/12 Tizanidine Hcl (Zanaflex)4 Mg Capsule4 Mg PO BID 07/21/12 PARoxetine-Expunged Drug, Do Not Renew! (Paxil-Expunged Drug, Do Not Renew!)20 Mg Jiurgp59 Mg PO DAILY 07/21/12 Discontinued Scripts Hum Insulin NPH/Reg Insulin Hm (HUMulin 70/30 U100 Insulin Kwikpen)100 Unit/1 Ml Insuln.pen35 Unit SUBQ BID 10 Days Ref 0 Prov:Андрей Burk MD 01/20/16 Amoxicillin/Clav K 875-125 mg 875 Mg Tab1 Tab PO BID 7 Days Prov:Андрей Burk MD 01/20/16 Warfarin Sodium 2.5 Mg Tablet2.5 Mg PO DAILY 30 Days Ref 0 Prov:Ashley Harrison DO 06/03/15 History History of ENT Problems?: Yes HEENT History: Positive for:: Cataracts (BILATERAL, SURGERY) Dysphagia Hearing Problem Sinus Problem (ALLERGIES) Denies:: Abnormal Airway Difficult Intubation Denture Type: Full- Upper Partial- Lower Hx of Heart Problems?: Yes Cardiovascular History: Positive for:: Edema Hypertension (ATENOLOL 12.5MG QD) Thrombophlebitis (left leg DVT in 2004/warfarin) Denies:: Cardiac Surgery Congestive Heart Failure Heart Murmur Irregular Heartbeat Pacemaker Other Cardiac History: ON COUMADIN Hx of Respiratory Problem?: Yes Respiratory History: Positive for:: Asthma Oxygen Administration (hx of use post stroke for a recovery period of time) Pneumonia Denies:: COPD Chest Surgery Dyspnea Emphysema Hemoptysis Tuberculosis Other Resp Pertinent History: FLONASE DURING ALLERGY SEASON Hx Neurologic Problems?: Yes Neurological History: Positive for:: CVA (RISIDUAL R WEAKNESS) Dementia (NOT CHRONIC, W/ UTI) Headaches Multiple Sclerosis Seizures (POSSIBLY BEFORE DC COBAXONE) Denies:: Alzheimer's Disease Dizziness Parkinson's Disease Hx of GI Problems?: Yes Gastrointestinal History: Positive for:: Heartburn (OCCASIONAL) Hiatal Hernia (UMBELICAL HERNIA REPAIRED AGE 5) Rectal Bleeding (constipation with passing of stool ) Denies:: Diverticulitis Gastroesphageal Reflux Gastrointestinal Bleeding Hepatitis Hx of Problems?: Yes Genitourinary History: Positive for:: Urinary Tract Infection (CHRONIC W/ UROSTOMY) Denies:: HX of Hemodialysis Kidney Stones HX of Peritoneal Dialysis: No Other Pertinent History: UROSTOMY IS 10 YR OLD Female Hx: Denies:: Currently Endometriosis Pelvic Inflammatory Problems with Breasts? Skin History: Positive for:: History Skin Disorders? Pressure Ulcers Other Skin Pertinent History: CURRENT ISSUES AT COCCYX/SACRUM AND UNDER UROSTOMY Hx Musculoskeletal Problems?: Yes Musculoskeletal History: Positive for:: Back Injury (NECK/BACK CHRONIC) Musculoskeletal Trauma (CVA 2009, PARALYSIS BELOW CHEST) Denies:: Joint Replacement Hx of Psycho/Social Problems?: Yes Psycho Social History: Positive for:: Hx Depression Denies:: Anxiety Bipolar Disorder Other Psych Pertinent History: ON PAXIL Hx Surgeries?: Yes Hx Any Other Health Problems?: Yes Other History: Positive for:: Hospitalization Thyroid Disease Denies:: Cancer Endocrine Disease History Blood Transfusions: Positive for:: Accept Blood Products? Blood Transfusions Denies:: Blood Transfuse Reaction Hx Diabetes: YesBedside Blood Glucose: 275 Hx Alcohol Use: NoHx Substance Use: No Smoking Status: Former Smoker Have You Smoked inLast 12 mo: No Stop/Bang Treated for Sleep Apnea?: No Do You Have a CPAP Machine?: No S-Snoring: Do You Snore Loudly: No T-Tired: feel tired, fatigued: No O-Obsered: Observed not breath: No P-Blood Pressure: treated: Yes B- Body Mass Index > 35 kg/m2: No A- Age over 50: Yes N- Neck Large Circumference: No G- Gender Male: No BETY Total Score: 1 BETY Risk Assessment: Low Risk, <3 Yes Risk Assessment Category Category 1A: Patient has history of documented sleep apnea, and HAS NOT received any narcotic, sedative or anesthesia administration during this stay. Category 1B: Patient has history of documented sleep apnea, and HAS received any narcotic , sedative or anesthesia administration during this stay Category 2: Patient has SUSPECTED Obstructive Sleep Apnea, and HAS received any narcotic , sedative or anesthesia administration during this stay. Category 3: Patient has SUSPECTED Obstructive Sleep Apnea and HAS NOT received narcotic, sedative or anesthesia administration during this stay. Category 4: Outpatient in Procedural Areas with known sleep apnea or who screen positive for High Risk via the STOP/BANG questionnaire. Exam Exam Vital Signs Vital Signs Date Time Temp Pulse Resp B/P Pulse Ox O2 Delivery O2 Flow Rate FiO2 09/12/16 09:11 79 16 99 Room Air 09/12/16 08:44 36.4 78 18 155/76 99 Room Air 09/12/16 05:58 36.0 79 18 164/73 100 Room Air 09/12/16 05:14 83 Meds/Labs/Diagnostics Admission Meds Current Medications Warfarin Sodium (Coumadin) 2.5 mg DAILY@17 ONCE PO Last administered on 17:44; Start 09/11/16 at 17:00; Stop 09/11/16 at 17:01; Status DC Carbamazepine (Tegretol XR) 200 mg BID PO Last administered on 09/11/16 20:56 ; Start 09/11/16 at 20:30 Bedside Blood Glucose: 275 Labs Test 09/08/16 16:20 09/12/16 05:47 Erythrocyte Sedimentation Rate 69mm/hr (0-40) Hemoglobin A1c 6.5% (4.8-5.6) Hold Hussein Top Tube Received (Received) White Blood Count 5.8th/mm3 (3.8-10.1) Red Blood Count 3.55mil/mm3 (3.90-5.20) Hemoglobin 10.2g/dL (12.0-15.6) Hematocrit 33.3% (35.0-46.0) Mean Corpuscular Volume 93.8fL (81-100) Mean Corpuscular Hemoglobin 28.7pg (27.0-35.0) Mean Corpuscular Hemoglobin Concent 30.6% (32.0-37.0) Red Cell Distribution Width 17.3% (12.3-15.4) Platelet Count 305bil/L (150-400) Neutrophils (%) (Auto) 68.2% (40-74) Lymphocytes (%) (Auto) 24.7% (14-46) Monocytes (%) (Auto) 6.4% (4-12) Eosinophils (%) (Auto) 0% (0-5) Basophils (%) (Auto) 0% (0-3) Prothrombin Time 26.2sec (8.1-12.5) Prothromb Time International Ratio 2.41ratio Sodium Level 141mEq/L (134-144) Potassium Level 4.9mEq/L (3.5-5.2) Chloride Level 111mEq/L (97-108) Carbon Dioxide Level 15mmol/L (18-29) Blood Urea Nitrogen 31mg/dL (8-27) Creatinine 1.03mg/dL (0.57-1.00) Estimat Glomerular Filtration Rate 77mL/min (>59) Glucose Level 257mg/dL (60-99) Calcium Level 8.7mg/dL (8.5-10.1) Magnesium Level 2.0mg/dL (1.6-2.6) Total Bilirubin 0.2mg/dL (0.0-1.2) Aspartate Amino Transf (AST/SGOT) 13U/L (0-50) Alanine Aminotransferase (ALT/SGPT) 18U/L (0-32) Alkaline Phosphatase 54U/L (25-165) Total Protein 6.4g/dL (6.4-8.4) Albumin 3.4g/dL (3.4-5.0) Plan Impression Patient chart reviewed, patient interviewed and anesthestic plan with risks, benefits, and alternatives discussed, and informed consent obtained. Byron Thompson MD Sep 12, 2016 10:06
--- NOTE | 2016-09-12 10:25 | NUR ---
TRANSFER TO OR Report given to Stacy in OR. Patient transferred up to OR in hospital bed. IV was saline locked.
[2016-09-12] MEDS ORDERED: Lactated Ringer's 1,000 ML IV ONE (11:16)
[2016-09-12] MEDS ORDERED: Lactated Ringer's 500 ML IV PRN (11:23)
[2016-09-12] MEDS ORDERED: Lactated Ringer's 1,000 ML IV SCH (11:23)
[2016-09-12] MEDS ORDERED: Phenylephrine 10,000 mCg/mL Inj IVPUSH PRN (11:25)
[2016-09-12] MEDS ORDERED: EPHEDrine Sulfate 50 mg/mL Inj IVPUSH PRN (11:25)
[2016-09-12] MEDS ORDERED: Dexamethasone 4 mg/mL Inj IVPUSH PRN (11:25)
[2016-09-12] MEDS ORDERED: hydrALAZINE 20 mg/mL Inj IVPUSH PRN (11:25)
[2016-09-12] MEDS ORDERED: Ondansetron 2 mg/mL 2 mL Inj IVPUSH PRN (11:25)
[2016-09-12] MEDS ORDERED: fentaNYL-PF 50 mCg/mL 2 mL Inj IVPUSH PRN (11:25)
[2016-09-12] MEDS ORDERED: fentaNYL-PF 50 mCg/mL 2 mL Inj ONE (11:28)
--- NOTE | 2016-09-12 11:46 | PCM.ANEP1 ---
Post Anesthesia Phase 1 PACU Phase 1 Assessment Vital Signs Vital Signs Date Time Temp Pulse Resp B/P Pulse Ox O2 Delivery O2 Flow Rate FiO2 09/12/16 09:11 79 16 99 Room Air 09/12/16 08:44 36.4 78 18 155/76 99 Room Air 09/12/16 05:58 36.0 79 18 164/73 100 Room Air 09/12/16 05:14 83 Anesthetic Administered: MAC Level of Alertness: Awake, talking Pain: No Pain Scale Score: 0 Nausea or Vomiting: No Oxygen Delivery: Simple Mask Dermatome Level: Full Sensation Byron Thompson MD Sep 12, 2016 11:46
--- NOTE | 2016-09-12 11:46 | PCM.ANEP2 ---
Post Anesthesia Evaluation ASA/CMS Post Anesthesia VS in Patient's Normal Range?: Yes Resp Stable; Airway Patent?: Yes CV Function & Hydration Stable: Yes Mental Status Recovered?: Yes Pain control Satisfactory?: Yes N/V Control Satisfactory?: Yes Byron Thompson MD Sep 12, 2016 11:46
--- NOTE | 2016-09-12 12:08 | PROG NOTE ---
[address] [address] PROGRESS NOTE PATIENT: LANNY PIRES : 1950 MR#: [id number] ADMIT: 09/08/2016 JOB ID: [id number] DATE: 09/12/2016 PROGRESS NOTE: The patient is seen again at the request of Dr. Ludwig. After review of all her studies, as well as her MRI and her clinical progress, he now feels that there is enough concern for possible temporal arteritis and that we should proceed with a biopsy. I have discussed this with the patient, discuss risks, benefits, and possible complications. She agrees to proceed. Her INR is 2.4. Given that this is a fairly superficial operation, I think we can proceed as long as we have FFP available in case there is bleeding.
--- NOTE | 2016-09-12 13:00 | NUR ---
RECEIVED FROM PACU Patient came back from PACU on hospital bed, alert and awake. VSS. Incision over L temporal is covered with steri strips. minimal blood on strips. Patient denies pain at surgical incision site, c/o aching pain in mouth and in jaw. Administered 0.5mg dilaudid IV. Patient's son in room and ordered patient lunch. Repositioned with pillows on both sides of hips. Heels elevated. Continue to monitor on hourly rounding.
--- NOTE | 2016-09-12 14:08 | OP ---
[address] [address] OPERATIVE REPORT PATIENT: LANNY PIRES : 1950 MR#: [id number] ADMIT: 09/08/2016 JOB ID: [id number] DATE OF SURGERY: 09/12/2016 PREOPERATIVE DIAGNOSIS(ES): Elevated sedimentation rate, possible temporal arteritis. POSTOPERATIVE DIAGNOSIS(ES): Elevated sedimentation rate, possible temporal arteritis. PROCEDURE: Left temporal artery biopsy. SURGEON: Kingsley Robbins MD ADVERTISING SOLICITOR: MARIO Rojo INDICATIONS: A 66-year-old woman referred for a temporal artery biopsy. FINDINGS: 4 cm of temporal artery removed. DESCRIPTION OF PROCEDURE: The patient was brought to the operating room. She was given IV sedation. SCOAP protocol was followed. No antibiotics were given. Left yazdanism was prepped and draped in sterile fashion. Local anesthetic was instilled. I made a incision just anterior to the left ear, identified the temporal artery and traced this cephalad for approximately 3 cm incision. I was able to dissect out a 4 cm segment of temporal artery, ligated it on either ends with silk, and sent the specimen off to Pathology. Hemostasis was good. We closed the wound with absorbable suture in two layers. Dry dressing was applied. The patient tolerated the procedure well.
--- NOTE | 2016-09-12 14:24 | NUR ---
Social Work- Continued D/C Planning Data: EMR reviewed. Pt is on day 4 of hospitalization for facial pain per H&P. Pt is not medically stable, anticipate multiple more days. MRI has been completed. Pt to receive temporal artery biopsy. Anticipate pt to return home with son at discharge. SW will continue to follow. Assessment:Pt who is w/c bound at baseline. Plan: Pt to discharge home with son when medically stable. Son provides care at home. SW will continue to follow. CANDELARIO Lyons
--- NOTE | 2016-09-12 17:07 | NUR ---
Wound Care Patient reassessed today, pt had been up in OR for biopsy on return mepilex removed from her backside to reveal sacrum and coccyx areas to hot red but still blanchable, Pressure ulcers at the sacrum are a cluster as previously described in wound note on 09/09/16, drainage is sanguineous and minimal with dressing change today and wounds are mechanically debrided of slough with removal of dressing today. A fresh mepilex dressing is placed today and pt is placed in sidelying. Pt is on a low airloss bed but needs to be positioned frequently from left to right side, recommend complete avoidance of supine position except for meals. Iliostomy site is assessed and is without leaks.
--- NOTE | 2016-09-12 20:05 | CONS ---
[address] [address] CONSULTATION REPORT PATIENT: LANNY PIRES : 1950 MR#: [id number] ADMIT: 09/08/2016 JOB ID: [id number] DATE OF SERVICE: 09/12/2016 REQUESTING PHYSICIAN: Reji Ludwig MD CHIEF COMPLAINT: Left facial pain. HISTORY OF PRESENT ILLNESS: The patient is a very pleasant 66-year-old right-handed woman with multiple medical problems, including secondary progressive multiple sclerosis, as well as a history of multiple bouts of left-sided facial pain. She reports that the pain starts in the angle of her left jaw and then many spread to involve her cheek, as well as spread to involve her latter day and her ear and may even radiate to the left side of her neck. She reports that she has had multiple bouts over the years, and this has been ongoing for at least 10 years in duration intermittently. She does report that the valves usually do not last more than one week. She reports that lately this bout has lasted for one month. She reports that this is the longest bout that she has had of this facial pain. She is a patient of my partner, Dr. Nichole Curran. She did see Dr. Curran recently. PAST MEDICAL HISTORY: Significant for secondary progressive multiple sclerosis, as well as multiple strokes. She reports that she had two strokes. On March 20, 2010, she had multiple ischemic cerebrovascular accident with resultant right-sided weakness, primarily spasticity of her right upper extremity. There was a question of a possible patent foramen ovale. However, a transesophageal echocardiogram was reportedly declined. She was at treated at [facility]. She has a history of a left proximal deep venous thrombosis in 2004. She has had multiple sclerosis since [address] Melissa and did recently establish with Dr. Nichole Curran, my partner. She does have a history of depression, hyperlipidemia, allergic rhinitis, urinary incontinence requiring a urostomy. She previously had a suprapubic catheter, now has an ileal conduit with a urostomy, too. She does have insulin-dependent type 2 diabetes. She has a history of hypertension and asthma. She also has a history of methicillin-resistant Staphylococcus aureus urinary tract infections with recurrent urinary tract infections in the past. She does have a history of diastolic dysfunction and a possible patent foramina ovale noted on an echo, however declined a transesophageal echocardiogram, reportedly. She also has a history of seizures reportedly at [facility]. She reports that she has not had any recent seizures. She does have a history of chronic wounds, including a decubitus ulcer, as she is paraplegic from the waist down. History of hypothyroidism, Pseudomonas urinary tract infections, and she does have a history of diagnosed of trigeminal neuralgia. See above history of presenting illness. PAST SURGICAL HISTORY: Status post tubal ligation. Status post umbilical hernia repair as a child. Status post partial osteoectomy of sacral spine and coccygectomy on October 10, 2010. FAMILY HISTORY: A brother with a stroke and a family history of multiple sclerosis. No family history of migraine headaches. SOCIAL HISTORY: She lives with her son, Lance. She is a former smoker. She quit in 2001. No alcohol and no drugs. She reports that she uses cloves which she reports she has noted improvement with. She has also tried a topical agent which she also reports she has noted benefit. She reports that she does developed bouts of facial pain and that this is the longest bout she has so far experienced. She presented to the emergency room with the pain, as she noted that the past three days prior to admission the pain had become extremely severe even compared to her baseline. She described severe stabbing and striking pain 10/10. The pain lasts less than a minute, however comes in recurrent bouts. She stated that she has tried prednisone and gabapentin which also she noted reduced the pain. Oxycodone reportedly did not make any difference for her. REVIEW OF SYSTEMS: A complete review of systems was performed, and it was remarkable for above noted. She also has noticed several ulcers on one of her buttocks that began to bleed, and she has also noted dysuria. ALLERGIES: 1. SULFA. 2. MORPHINE. HOME MEDICATIONS: Included: 1. Albuterol HFA. 2. Amoxicillin/clavulanate. 3. Aspirin 81 mg. 4. Atenolol. 5. Atorvastatin. 6. Vitamin D3. 7. Clotrimazole 1%. 8. Benadryl. 9. Fluticasone. 10. Humulin insulin. 11. Levothyroxine. 12. Multivitamin. 13. Magnesium. 14. Mupirocin. 15. Nystatin. 16. MiraLAX. 17. Tizanidine 18. Coumadin. 19. CoQ10. 20. Oxycodone. 21. Copaxone. She takes that on Friday, Friday, and Friday. LABORATORY STUDIES: WBC of 6.7, hemoglobin 11.1, hematocrit 36.2, and platelets of 358. Sodium 140, potassium 4.9, chloride was 104, bicarb was 18, BUN was 45, creatinine was 1.29 with a glucose of 157. PHYSICAL EXAMINATION: She is a well-developed, well-nourished woman in no acute distress. Head: Normocephalic, atraumatic. Neck is supple. No carotid bruits were auscultated. Negative Kernig. Negative Brudzinski. Chest clear to auscultation. Heart: Regular rate and rhythm. Abdomen: Soft, nondistended, nontender. Extremities: No cyanosis, clubbing, or edema. NEUROLOGIC EXAMINATION: Mental status: She is awake, alert, oriented x3. Speech clear and fluent with intact comprehension. There was no aphasia. She does have a bandage over the left latter day, as she underwent a temporal artery biopsy today. She reports no loss of vision in the left eye. She recently underwent cataract surgery in both her eyes. She also underwent laser surgery on both her eyes. Face appeared symmetrical. Facial sensation was intact to light touch and temperature. Auditory sensation was intact to finger rub. Palatal elevation was symmetrical with normal palatal elevation. Tongue was midline. Sternocleidomastoid and trapezii are 5/5 bilaterally. There is tenderness to palpation principally at the left angle of the jaw which she reports results in a shocking sensation spreading throughout the distribution of the trigeminal nerve. Visual rivas were full to confrontation. Extraocular movements were smooth and conjugate with no evidence of nystagmus. Pupils equal, round, reactive to light. Motor: There is increased tone of the right upper extremity, and she is unable to lift her right upper extremity above her head. There is a very mild degree of increased tone in the left upper extremity, and there is increased tone in the bilateral lower extremities. Deep tendon reflexes were diminished throughout. Positive Babinski sign bilaterally. Sensation was diminished to light touch and temperature and vibration in the bilateral distal lower extremities. Coordination could not be assessed in the right upper extremity. There was no dysmetria or ataxia noted in the left finger to nose. Gait was deferred. IMPRESSION: Given her clinical history, my suspicion is that this does represent trigeminal neuralgia. I do recommend extended release carbamazepine, as she does note that after carbamazepine was started that her pain would disappear for 2-3 hours and then return. She is also taking gabapentin, and in addition to changing carbamazepine to extended release, I do recommend a slow escalation of carbamazepine to a maximum tolerated dose and close monitoring of her INR, as it may interact with her Coumadin. She is presently on prednisone 60 mg daily. Will await the results of temporal artery biopsy. I did review in detail imaging studies, first of her CT of the head which demonstrated no acute intracranial abnormality. No explanation for jaw and head pain. An MRI of her temporomandibular joints demonstrated no evidence of joint effusion, bony erosion, or osteophytosis involving the temporal mandibular joint. Functional status of the temporomandibular joints cannot be evaluated due to patient motion artifact. She did have a magnetic resonance imaging study of her brain without contrast demonstrating no acute intracranial disease process, numerous chronic small lacunar infarcts appearing stable compared to the prior magnetic resonance imaging study of the brain obtained on January 13, 2016. Severe periventricular and subcortical white matter chronic microvascular ischemic changes and punctate susceptibility weighted hypo-intensities in the right frontal lobe, bilateral putamen, left temporal lobe, jayant, and medulla. Finding is not specific, however given distribution, suspicious for chronic hypertensive micro bleeds. If there is a strong concern for vasculitis, she may benefit from obtaining a magnetic resonance angiogram of her brain and/or possibly a lumbar puncture. However, given her clinical history, unless there is evidence that does strongly suggest this is temporal arteritis or strongly suggestive of a vasculitic etiology, my suspicion is that her symptoms are secondary to trigeminal neuralgia which is often seen in multiple sclerosis patients. The concern is potential interactions with carbamazepine and Coumadin. Trigeminal neuralgia can also be initial presentation of multiple sclerosis. However, this is unlikely in this present situation. Another medication that may be helpful is baclofen. If carbamazepine and baclofen are ineffective, another option is a combination of Lyrica and Cymbalta. However, at this point, it does appear that carbamazepine is effective. However, there is early wearing off of her symptoms. The fact that she has responded carbamazepine suggests to me that it is trigeminal neuralgia. Other options for treatment include microvascular decompression. There has also been evidence supportive of Botox therapy for treatment of severe trigeminal neuralgia related pain. She may also benefit from Botox injections for treatment of her right upper extremity spasticity which may help in treatment of not only the spasticity but also her pain involving the right upper extremity and associated with spasticity. Research on the mechanism of action of Botox has shown that it may reduce spasticity associated pain. The advantage of Botox is that of significantly fewer side effects than oral drugs. It appears that she has already tried Trileptal and that this was not effective or resulted in side effects in the past. I do recommend increasing the carbamazepine by 200 mg daily up to a goal dose of 800 mg daily that is 400 mg in the morning and 400 mg in the evening of the extended release depending on side effects which may include sedation and dizziness. It appears that she was already started on extended release last night. The maximum suggested total dose is 1200 mg daily. I do recommend monitoring of INR in this setting given the potential for interactions with her Coumadin. We can increase in increments of 200 mg daily as tolerated given the potential side effects including sedation and dizziness until sufficient pain relief is obtained. Another option may be to start baclofen 15 mg daily given in three divided doses with a gradual escalation of dose up to a goal dose of 50 mg daily. If these options do not work, I do recommend a trial of Lamictal. However, this does require a very slow escalating dose and thus my recommendation is to 1st attempt combination therapy with carbamazepine and baclofen. If there is no improvement with this combination, I would start lamotrigine 50 mg once daily and increasing by 50 mg every two weeks up to a goal dose of 400 mg daily. Another option is topical lidocaine. Reviewed side effects in detail with the patient. Questions were sought and answered. The patient expressed understanding. Patient education was provided. Thank you, again, Dr. Ludwig, for allowing me to participate in the care of your patient. Please feel free to contact me with any questions or concerns. ARIEL
[2016-09-12] MEDS: PARoxetine 20 mg Tablet PO SCH (20:20)
[2016-09-12] MEDS ORDERED: carBAMazepine 200 mg ER12 Tablet PO SCH (20:30)
--- NOTE | 2016-09-12 21:50 | PCM.PNMED ---
Subjective Date of Service Sep 12, 2016 Subjective Patient continues to complain of left jaw pain. However, she states that the new medications that I am giving her her helping her pain it just has not gone away and is still quite bothersome. Patient tolerated the temporal artery biopsy well. Complains of some bleeding at the site which has been controlled with an occlusive dressing. Exam Vital Signs Vital Sign - Last Date Time Temp Pulse Resp B/P Pulse Ox O2 Delivery O2 Flow Rate FiO2 09/12/16 20:26 36.5 77 16 135/72 99 Room Air 09/12/16 11:45 7 Intake and Output 09/11/16 09/11/16 09/12/16 Cumulative From/Thru 15:00 23:00 07:00 09/08/16 16:06 - 09/12/16 05:57 Intake Total 453 ml 894 ml 1144 ml 9981 ml Output Total 1400 ml 2800 ml 9710 ml Balance 453 ml -506 ml -1656 ml 271 ml Intake Oral 560 ml 320 ml 4206 ml IV Total 453 ml 334 ml 824 ml 5775 ml Output Urine Total 1400 ml 2800 ml 9710 ml # Bowel Movements 1 0 2 Exam General: Patient is in no apparent distress. HEENT: Head is atraumatic and normocephalic. Eyes: Pupils are equally round and reactive to light and accommodation. Extraocular muscles are intact. Sclera are white, anicteric. Subconjunctival mucosa is pink. Ears and nose are unremarkable. Oropharynx: There is no mucosal lesions, there is no thrush, there is no pharyngitis. Neck: Is supple, there are no nodes, or masses or tenderness. Chest: Is clear to auscultation and percussion. There are no rales, rhonchi, wheezes or rubs. Heart: Rate, rhythm is regular. There is no murmur, rub or gallop. Abdomen: Good bowel sounds are present. Abdomen is soft, obese, nontender, no organomegaly or masses were appreciated. The abdomen is tympanitic to percussion Extremities: Are symmetrical and well perfused. There is foot drop of both lower extremities. There is some cachexia of all 4 extremities. There is no edema, there is no cellulitis, no rash. Neurologic: The patient is paraplegic. Cranial nerves II through XII are intact except for patient's hearing which is diminished. Psychiatric: Patients mood is calm and she shows no sign of agitation. Genital: Deferred Rectal: Deferred Lab and Diagnostics Result Diagram: 09/12/1654609/12/16546 X-Rays, CTs and MRIs PROCEDURE: CT BRAIN WITHOUT CONTRAST ([id number]) INDICATIONS: jaw/head pain TECHNIQUE: Noncontrast 4.5 mm thick angled axial sections acquired from the foramen magnum to the vertex, with coronal reformats. COMPARISON: [facility], CT, CT BRAIN WO CON, 01/06/2016, 19:05. [facility], MR, MR BRAIN W&WO CON, 01/13/2016, 12:55. FINDINGS: Image quality: Excellent. CSF spaces: Basal cisterns are patent. No extra-axial fluid collections. The ventricles are symmetric in size and shape. Brain: No intracranial bleeds or masses. There is cerebral volume loss for age , with resultant ventricular and sulcal prominence. No change in mild low density within the periventricular and subcortical white matter, consistent with multiple sclerosis sequelae and/or small vessel ischemic disease. There is intracranial internal carotid artery atherosclerosis. Skull and face: Calvarium and visualized facial bones appear intact, without suspicious lesions. Sinuses: Visualized sinuses and mastoids are clear. IMPRESSION: No acute intracranial abnormality. No explanation for jaw/head pain. Dictated by: Margo Horton M.D. on 09/08/2016 at 17:22 Approved by: Margo Horton M.D. on 09/08/2016 at 17:23 PROCEDURE: MRI BRAIN WITHOUT CONTRAST ([id number]) INDICATIONS: severe left jaw pain TECHNIQUE: Non-contrast axial T1 spin echo, axial T2 fast spin echo, sagittal and axial FLAIR, coronal T2 fast spin echo, axial gradient echo, axial diffusion and ADC through the brain. COMPARISON: [facility], CT, CT BRAIN WO CON, 01/06/2016, 19:05. [facility], CT, CT BRAIN WO CON, 09/08/2016, 16:59. [facility], CT, BRAIN W/O CONTRAST, 04/21/2010, 22:31. MR, STROKE PROTOCOL (PNL) , 04/13/2010, 10:35. MR, STROKE PROTOCOL (PNL), 04/23/2010, 16:57. [facility], MR, MR BRAIN W&WO CON, 01/13/2016, 12:55. FINDINGS: Image quality: Excellent. CSF spaces: Diffuse prominence of the CSF space is noted. Ventricles appear symmetric in shape. Basal cisterns are patent. No extra-axial fluid collections. Brain: No intracranial bleeds or mass effects. There is cerebral volume loss for age. There are severe periventricular and deep white matter chronic small vessel ischemic changes. Brainstem appears normal. Diffusion-weighted images show no acute ischemic insults numerous small lacunar infarcts in noted in the cerebral hemispheres and the left cerebellar hemisphere which is stable compared to prior MRIs. Punctate foci of hypointense susceptibility weighted signal noted in the right frontal lobe, putamen bilaterally, the left temporal lobe, the jayant and the anterior aspect of the medulla. Normal intravascular flow voids are present. Skull and face: Calvarial bone marrow is normal in signal. Orbits are normal. Sinuses: Sinuses and mastoids are clear. IMPRESSION: 1. No acute intracranial disease process. 2. Numerous, chronic, small, lacunar infarcts stable compared to prior MRI examination obtained 01/13/16. Multiple chronic infarcts are suspicious for underlying vasculitis. 3. Severe periventricular and subcortical white matter chronic microvascular ischemic changes. 4. Punctate susceptibility weighted hypointensities in the right frontal lobe bilateral putamen, left temporal lobe, jayant and medulla. Finding is nonspecific but given the distribution suspicious for chronic hypertensive micro-bleeds. Please correlate with clinical data. Dictated by: Yamini Omer MD, PhD on 09/11/2016 at 14:13 Approved by: Yamini Omer MD, PhD on 09/11/2016 at 14:33 PROCEDURE: MRI TEMPOROMANDIBULAR JOINTS ([id number]) INDICATIONS: severe left jaw pain TECHNIQUE: Axial T1 spin echo, coronal and sagittal PD fast spin echo through the temporomandibular joints, in both the closed- and open-mouth positions. COMPARISON: None. FINDINGS: Image quality: Image quality severely limited by patient motion artifact. No temporomandibular joint effusions are identified. No bony erosions or osteophytes. The marrow signal of the osseous structures of the abdomen of the joints is normal. Open closed mouth views are nondiagnostic due to motion artifact. IMPRESSION: 1. No evidence of joint effusion, bony erosion or osteophytosis involving the temporomandibular joints. 2. Functional status of the temporomandibular joints cannot be evaluated due to patient motion artifact. Dictated by: Yamini Omer MD, PhD on 09/11/2016 at 14:34 Approved by: Yamini Omer MD, PhD on 09/11/2016 at 14:37 Assessment & Plan The patient is a 66 y.o. female with a history of Type II DM, MS, CVA, DVT anticoagulated on warfarin, HTN, seizures, chronic decubitus ulcer, trigeminal neuralgia present on admission and ongoing with worsening left facial pain. Patient was admitted to the hospital service for further evaluation and treatment. # Acute on chronic left facial and jaw pain. Present on admission. ongoing - The left jaw pain is of unclear exact etiology but is likely due to Trigeminal Neuralgia, acute on chronic. - Differential diagnosis is Temporal Arteritis especially given the new MRI findings of possible vasculitis. - Patient has history of MS and trigeminal neuralgia - We will continue Prednisone 60 mg PO QD for now although there does not appear to be any improvement as of yet in the patient's pain. - We will continue Gabapentin 300 mg TID, titrate to pain - We will add Tegretol 100 mg by mouth twice a day - Consider neurology consultation .- I have discussed the patient's case with Dr. Small of neurology and he states that patients with multiple sclerosis can get both temporal arteritis and /or vasculitis as well as trigeminal neuralgia. He will see the patient in consultation. - Gen. Surgery was consulted in ED. I have reconsulted Dr. Kingsley Robbins 's morning and patient was taken for left temporal artery biopsy today. The patient tolerated the procedure well. Dr. Robbins's help is appreciated. - Dr. Small dilated the patient today and appreciate his thorough investigation into this patient's problem and his input. We will follow his recommendations. # Decubitus Ulcers, acute on chronic - Severe decubitus ulcers over sacrum and coccyx, no leukocytosis on CBC, patient is afebrile at admission - We will continue Nursing wound care per wound care consult - Wound care consult - Repeat CBC in AM # Acute Kidney injury noted on admission on chronic kidney disease Present on admission - Renal function appears to continue to improve. - Continue to monitor I/O - We will continue to check daily labs. Chronic conditions # Insulin-dependent type 2 diabetes. 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 - Continue anticoagulation with heparin dosed per pharmacy # Multiple sclerosis, presumed stable - We will continue home medication # Depression. stable -We will continue home medication # Hyperlipidemia. - We will continue home medication # Allergic rhinitis. -We will continue home medication # Urinary incontinence, with suprapubic catheter, - We will continue to monitor # Hypertension. -We will continue home medication # History of asthma. stable - We will continue Duoneb Q6 PRN # History of MRSA urinary tract infection with recurrent UTIs # Diastolic dysfunction and possible PFO on echo from March 2010. -continue home medication # History of seizures documented at [facility]. -continue home medication # History of hypothyroidism. -continue home medication DVT prophylaxis: Warfarin Dispo: 1-2 days pending better pain control. GI Prophylaxis: Proton Pump Inhibitor VTE Prophylaxis: Theraputic Anticoag with Warfarin VTE Mechanical Devices: Intermittant Pneumatic CD Resuscitation Status: CPR: Attempt Resuscitation Reji Ludwig MD Sep 12, 2016 21:50 Reji Ludwig MD Sep 12, 2016 21:50
[2016-09-13] VITALS (7 sets, daily range): BP systolic 103–155; BP diastolic 59–78; PULSE 61–79; RESP 16–18; O2SAT 97–100
[2016-09-13] MEDS: HYDROmorphone 0.5 mg/0.5 mL iSecure Syringe IVPUSH PRN ×3 (01:11→21:03)
--- NOTE | 2016-09-13 01:40 | NUR ---
Activity/Pain Patient resting with eyes closed most of shift so far. Complaints of 9-10/10 facial/jaw pain upon awakening. Receiving 0.5mg Dilaudid IVP with effective results. Noted to be resting again with eyes closed upon reassessments. Q2hour turns. Able to use BUE to help staff with repositioning.
[2016-09-13 06:03] LABS: BASOPHILS % (AUTO) 0.1 % (0-3); EOSINOPHILS % (AUTO) 1.1 % (0-5); Mean Corpuscular Hemoglobin 28.3 pg (27.0-35.0); Mean Corpuscular Volume 94.6 fL (81-100); NEUTROPHILS % (AUTO) 42.1 % (40-74); Platelet Count 282 bil/L (150-400)
[2016-09-13 06:24] LABS: INR 3.31 ratio
[2016-09-13] MEDS: Insulin LISPRO 300 Unit/3 mL Inj SUBQ SCH ×4 (08:00→22:06)
[2016-09-13] MEDS: carBAMazepine 100 mg ER12 Tablet PO SCH ×2 (08:17→20:58)
[2016-09-13] MEDS: Pantoprazole 40 mg ER24 Tablet PO SCH (08:17)
[2016-09-13] MEDS: predniSONE 20 mg Tablet PO SCH (08:18)
[2016-09-13] MEDS: TIZANIDINE 4 MG PO SCH ×2 (08:18→20:58)
[2016-09-13] MEDS: Fluticasone 0.05% 15 Spray/2 Gm 16 Gm Nasal Spray NASAL SCH (08:19)
[2016-09-13] MEDS: Insulin Human NPH 100 Unit/mL 3 mL Inj SUBQ SCH ×2 (08:20→17:01)
[2016-09-13] MEDS: 0.9% Sodium Chloride 1,000 ML IV SCH (08:20)
[2016-09-13] MEDS: Mupirocin 2% 22 Gm Ointment TOPICAL SCH ×2 (08:30→20:30)
[2016-09-13] MEDS: Nystatin 100,000 Unit/Gm 15 Gm Powder TOPICAL SCH ×2 (08:30→20:30)
--- NOTE | 2016-09-13 09:02 | PCM.PNSURG ---
Subjective Date of Service: Sep 13, 2016 Visit Information: Reason for Visit Facial Pain,Severe Skin Breakdown Surgery/Surgery Date temporal artery bx 09/12/16 Post-Op Day # 1 Date of Admission: Sep 08, 2016 at 21:44 Hospital Day # Subjective: Complains of left facial and jaw pain that preexisted her operation yesterday. States no incisional pain. Smelling cloves for pain relief as she states that is her only ability to gain pain relief. Pain Management: PO, IV Push, Other (as above) Objective Vital Sign- Last 8 Hours Date Time Temp Pulse Resp B/P Pulse Ox O2 Delivery O2 Flow Rate FiO2 09/13/16 08:00 67 09/13/16 04:59 61 09/13/16 04:05 36.5 72 16 120/71 100 Room Air 09/13/16 01:01 36.4 78 18 132/69 97 Room Air Intake and Output- Last 8 Hour 09/13/16 Cumulative From/Thru 07:00 09/08/16 16:06 - 09/13/16 06:26 Intake Total 200 ml 23981 ml Output Total 1200 ml 80718 ml Balance -1000 ml -197 ml Intake Oral 200 ml 4656 ml IV Total 6557 ml Output Urine Total 1200 ml 12107 ml # Bowel Movements 0 2 General: Alert, Cooperative, No Acute Distress SURGICAL WOUND : Wound Location/Description Left temporal incision is inspected: The wound closure is intact with no discharge or surrounding erythema. Steri-Strips came off with the dressing. 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 POD #1 following temporal artery biopsy with stable postsurgical wound. Other diagnoses: 1. 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 There was a question of PFO, but apparently patient refused MARY, and this was at [facility]. 2. History of left proximal DVT in 2004. 3. Multiple sclerosis since 1993, as noted in the HPI. 4. Depression. 5. Hyperlipidemia. 6. Allergic rhinitis. 7. Urinary incontinence, requiring urostomy and previously had a suprapubic catheter, now has an ileal conduit with urostomy tube. 8. Insulin-dependent type 2 diabetes. 9. Hypertension. 10. History of asthma. 11. History of MRSA urinary tract infection with recurrent UTIs in the past. 12. Diastolic dysfunction and possible PFO on echo from March 2010. 13. History of seizures documented at [facility]. 14. Chronic wounds including decubitus ulcer 15. History of hypothyroidism. 16. Pseudomonas UTIs 17. Trigeminal Neuralgia Problems: Plan As per the hospitalist service. VTE Prophylaxis: Theraputic Anticoag with Warfarin Resuscitation Status: CPR: Attempt Resuscitation Thang Thomas PA-C Sep 13, 2016 09:02
[2016-09-13] MEDS: oxyCODONE-Acetamin 10-325 mg Tablet PO PRN (12:49)
--- NOTE | 2016-09-13 14:19 | PCM.PHAPRO ---
Progress WARFARIN DOSING PER PHARMACY -Sep 09-Sep 10-Sep 11-Sep 12-Sep 13-Aug NA 1.51 1.52 1.91 2.41 3.31 #VALUE! 0.01 0.39 0.5 0.9 UNK 2.5MG 3.5MG 2.5 MG HOLD DI: tegretol (can actually decrease effectiveness of INR) and paroxetine P: Will hold warfarin dose tonight due to rapid increase in INR Pharmacy will continue to monitor INR/CBC/signs and symptoms of bleeding Miriam Villanueva PharmD Sep 13, 2016 14:19
--- NOTE | 2016-09-13 15:40 | NUR ---
NUTRITION FOLLOW-UP: ASSESS: 66 yo female admitted for facial pain and severe skin breakdown related to lower extremity paralysis from MS. Pt currently on a dysphagia Mechanical diet and eating 50-100% of meals. Pt is POD#1 for temporal artery biopsy. PMHX: pyelonephritis, multiple CVA's, ureterostomy, HTN, T2DM, ARGENIS with CKD, multiple sclerosis, depression, asthma, seizures, DVT. LABS: Reviewed. BUN 32, Cr 1.18, Glu 144, Alb 3.1 MEDS: Reviewed. GI: BM x 2 (09/11/16) SKIN: Pt with multiple sacral PU, 1 unstageable and the rest are stage II to stage III per wound care note. CURRENT WTS:71 kg. Admit wt: 69.2 kg. Wt trends: Pt has lost 11% body weight in 15 months, Significant wt loss. DIET: Dysphagia Mechanical, PO 50-100% of meals. EST. NEEDS: MS/Wounds Calories: 7190-1179 kcal/day (25-35 kcal/kg BW) Protein: 85-105 g/day (1.2-1.5 g/kg BW) NUTRITION DIAGNOSIS: 1.) Increased nutrient needs related to increased demand for nutrients for healing as evidenced by Stage II and Stage III wounds on sacrum/buttock and significant weight loss of 11%--PERSISTS. 2.) Chewing / swallowing difficulties related to chronic dysphagia as evidenced by current / chronic need for mechanically altered diet texture, ST following--IMPROVING. NUTRITION INTERVENTION: 1.) Continue to send Glucerna all trays to encourage adequate po intake for wound healing and weight maintenance. MONITOR / EVAL: PO intake, labs, wounds, nutritional status. Continue to monitor per moderate nutrition risk guidelines.
--- NOTE | 2016-09-13 16:30 | NUR ---
IV site infiltrated on left upper arm. Upper arm swollen, no redness noted. Patient reports not being painful. IV site d/c'd and left arm elevated with pillows. MD notified and new IV line to be placed by IV therapy.
--- NOTE | 2016-09-13 16:36 | NUR ---
[facility] SW attempted to have pt sign STEPHANE. Pt asleep and did not wake to SW voice or touch. Pinky Andrea REHABILITATION PROGRAM COORDINATOR
--- NOTE | 2016-09-13 17:06 | NUR ---
spiritual care: family pt's son offered brief medical and coping update as he recognized me from pt's last hospital stay. will follow as needed.
--- NOTE | 2016-09-13 19:15 | NUR ---
Ostomy/repositioning Urostomy appliance was leaking from right side onto abdomen. Entire appliance and bag was changed. Skin breakdown noted to right lateral side of ostomy. Patient continues to be turned and repositioned every 2 hrs. Heels elevated.
[2016-09-13] MEDS: PARoxetine 20 mg Tablet PO SCH (22:05)
--- NOTE | 2016-09-13 22:35 | PCM.PNMED ---
Subjective Date of Service Sep 13, 2016 Subjective Patient continues to have severe pain in her left mandibular area. She is eating very little. She does however agree to drink Glucerna. She would like the lights off and I would like to sleep as much as possible. She has no other new complaints. Exam Vital Signs Vital Sign - Last Date Time Temp Pulse Resp B/P Pulse Ox O2 Delivery O2 Flow Rate FiO2 09/13/16 20:51 36.5 79 16 155/78 99 Room Air 09/12/16 11:45 7 Intake and Output 09/12/16 09/12/16 09/13/16 Cumulative From/Thru 15:00 23:00 07:00 09/08/16 16:06 - 09/13/16 06:26 Intake Total 0 ml 1032 ml 200 ml 65477 ml Output Total 500 ml 1200 ml 66032 ml Balance 0 ml 532 ml -1000 ml -197 ml Intake Oral 250 ml 200 ml 4656 ml IV Total 0 ml 782 ml 6557 ml Output Urine Total 500 ml 1200 ml 47674 ml # Bowel Movements 0 2 Exam General: Patient is somnolent due to analgesics, however she is easily arousable and is still having excruciating pain. HEENT: Head is significant for left temporal artery biopsy incision which looks excellent. There is no drainage there is no crepitance there is no erythema.. Eyes: Pupils are equally round and reactive to light and accommodation. Extraocular muscles are intact. Sclera are white, anicteric. Subconjunctival mucosa is pink. Ears and nose are unremarkable. Oropharynx: There are no mucosal lesions, there is no thrush, there is no pharyngitis. Neck: Is supple, there are no nodes, or masses or tenderness. Chest: Is clear to auscultation and percussion. There are no rales, rhonchi, wheezes or rubs. Heart: Rate, rhythm is regular. There is no murmur, rub or gallop. Abdomen: Good bowel sounds are present. Abdomen is soft, obese, nontender, no organomegaly or masses were appreciated. The abdomen is tympanitic to percussion Extremities: Are symmetrical and well perfused. There is foot drop of both lower extremities. There is some cachexia of all 4 extremities. There is trace edema, there is no cellulitis, no rash. Neurologic: The patient is paraplegic. Cranial nerves II through XII are intact except for patient's hearing which is diminished. Psychiatric: Patients mood is calm and she shows no sign of agitation. Genital: Deferred Rectal: Deferred Lab and Diagnostics Result Diagram: 09/13/1652409/13/16524 X-Rays, CTs and MRIs PROCEDURE: CT BRAIN WITHOUT CONTRAST ([id number]) INDICATIONS: jaw/head pain TECHNIQUE: Noncontrast 4.5 mm thick angled axial sections acquired from the foramen magnum to the vertex, with coronal reformats. COMPARISON: [facility], CT, CT BRAIN WO CON, 01/06/2016, 19:05. [facility], MR, MR BRAIN W&WO CON, 01/13/2016, 12:55. FINDINGS: Image quality: Excellent. CSF spaces: Basal cisterns are patent. No extra-axial fluid collections. The ventricles are symmetric in size and shape. Brain: No intracranial bleeds or masses. There is cerebral volume loss for age , with resultant ventricular and sulcal prominence. No change in mild low density within the periventricular and subcortical white matter, consistent with multiple sclerosis sequelae and/or small vessel ischemic disease. There is intracranial internal carotid artery atherosclerosis. Skull and face: Calvarium and visualized facial bones appear intact, without suspicious lesions. Sinuses: Visualized sinuses and mastoids are clear. IMPRESSION: No acute intracranial abnormality. No explanation for jaw/head pain. Dictated by: Margo Horton M.D. on 09/08/2016 at 17:22 Approved by: Margo Horton M.D. on 09/08/2016 at 17:23 PROCEDURE: MRI BRAIN WITHOUT CONTRAST ([id number]) INDICATIONS: severe left jaw pain TECHNIQUE: Non-contrast axial T1 spin echo, axial T2 fast spin echo, sagittal and axial FLAIR, coronal T2 fast spin echo, axial gradient echo, axial diffusion and ADC through the brain. COMPARISON: [facility], CT, CT BRAIN WO CON, 01/06/2016, 19:05. [facility], CT, CT BRAIN WO CON, 09/08/2016, 16:59. [facility], CT, BRAIN W/O CONTRAST, 04/21/2010, 22:31. MR, STROKE PROTOCOL (PNL) , 04/13/2010, 10:35. MR, STROKE PROTOCOL (PNL), 04/23/2010, 16:57. [facility], MR, MR BRAIN W&WO CON, 01/13/2016, 12:55. FINDINGS: Image quality: Excellent. CSF spaces: Diffuse prominence of the CSF space is noted. Ventricles appear symmetric in shape. Basal cisterns are patent. No extra-axial fluid collections. Brain: No intracranial bleeds or mass effects. There is cerebral volume loss for age. There are severe periventricular and deep white matter chronic small vessel ischemic changes. Brainstem appears normal. Diffusion-weighted images show no acute ischemic insults numerous small lacunar infarcts in noted in the cerebral hemispheres and the left cerebellar hemisphere which is stable compared to prior MRIs. Punctate foci of hypointense susceptibility weighted signal noted in the right frontal lobe, putamen bilaterally, the left temporal lobe, the jayant and the anterior aspect of the medulla. Normal intravascular flow voids are present. Skull and face: Calvarial bone marrow is normal in signal. Orbits are normal. Sinuses: Sinuses and mastoids are clear. IMPRESSION: 1. No acute intracranial disease process. 2. Numerous, chronic, small, lacunar infarcts stable compared to prior MRI examination obtained 01/13/16. Multiple chronic infarcts are suspicious for underlying vasculitis. 3. Severe periventricular and subcortical white matter chronic microvascular ischemic changes. 4. Punctate susceptibility weighted hypointensities in the right frontal lobe bilateral putamen, left temporal lobe, jayant and medulla. Finding is nonspecific but given the distribution suspicious for chronic hypertensive micro-bleeds. Please correlate with clinical data. Dictated by: Yamini Omer MD, PhD on 09/11/2016 at 14:13 Approved by: Yamini Omer MD, PhD on 09/11/2016 at 14:33 PROCEDURE: MRI TEMPOROMANDIBULAR JOINTS ([id number]) INDICATIONS: severe left jaw pain TECHNIQUE: Axial T1 spin echo, coronal and sagittal PD fast spin echo through the temporomandibular joints, in both the closed- and open-mouth positions. COMPARISON: None. FINDINGS: Image quality: Image quality severely limited by patient motion artifact. No temporomandibular joint effusions are identified. No bony erosions or osteophytes. The marrow signal of the osseous structures of the abdomen of the joints is normal. Open closed mouth views are nondiagnostic due to motion artifact. IMPRESSION: 1. No evidence of joint effusion, bony erosion or osteophytosis involving the temporomandibular joints. 2. Functional status of the temporomandibular joints cannot be evaluated due to patient motion artifact. Dictated by: Yamini Omer MD, PhD on 09/11/2016 at 14:34 Approved by: Yamini Omer MD, PhD on 09/11/2016 at 14:37 Assessment & Plan The patient is a 66 y.o. female with a history of Type II DM, MS, CVA, DVT anticoagulated on warfarin, HTN, seizures, chronic decubitus ulcer, trigeminal neuralgia present on admission and ongoing with worsening left facial pain. Patient was admitted to the hospital service for further evaluation and treatment. # Acute on chronic left facial and jaw pain. Present on admission. ongoing - The left jaw pain is of unclear exact etiology but is likely due to Trigeminal Neuralgia, acute on chronic. - Differential diagnosis is Temporal Arteritis especially given the new MRI findings of possible vasculitis. - Patient has history of MS and trigeminal neuralgia - We will continue Prednisone 60 mg PO QD for now, although there is minimal improvement in the patient's pain. He attributes the Tegretol to improving the pain to this point. - We will continue Gabapentin 300 mg TID, titrate to pain - We will continue Tegretol XR 200 mg by mouth twice a day - Appreciate neurology consultation. We will follow Dr. schmidt's recommendations. .- I have discussed the patient's case with Dr. Schmidt of neurology and he states that patients with multiple sclerosis can get both temporal arteritis and /or vasculitis as well as trigeminal neuralgia. - Gen. Surgery was consulted in ED. I have reconsulted Dr. Kingsley Robbins 's morning and patient was taken for left temporal artery biopsy today. The patient tolerated the procedure well. Dr. Robbins's help is appreciated. - Dr. Schmidt dilated the patient today and appreciate his thorough investigation into this patient's problem and his input. We will follow his recommendations. # Decubitus Ulcers, acute on chronic - Severe decubitus ulcers over sacrum and coccyx, no leukocytosis on CBC, patient is afebrile at admission - We will continue Nursing wound care per wound care consult - Wound care consult obtained - Repeat CBC in AM # Acute Kidney injury noted on admission on chronic kidney disease Present on admission - Renal function appears to continue to improve. - Continue to monitor I/O - We will continue to check daily labs. Chronic conditions # Insulin-dependent type 2 diabetes. - Hold home insulin NPH 35 units BID due to poor by mouth intake. 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 - Continue anticoagulation with heparin dosed per pharmacy # Multiple sclerosis, presumed stable - We will continue home medication # Depression. stable -We will continue home medication # Hyperlipidemia. - We will continue home medication # Allergic rhinitis. -We will continue home medication # Urinary incontinence, with suprapubic catheter, - We will continue to monitor # Hypertension. -We will continue home medication # History of asthma. stable - We will continue Duoneb Q6 PRN # History of MRSA urinary tract infection with recurrent UTIs # Diastolic dysfunction and possible PFO on echo from March 2010. -continue home medication # History of seizures documented at [facility]. -continue home medication # History of hypothyroidism. -continue home medication DVT prophylaxis: Warfarin Dispo: 1-2 days pending better pain control and better by mouth intake. Pain Evaluation: Adequate Pain Control GI Prophylaxis: Proton Pump Inhibitor VTE Prophylaxis: Theraputic Anticoag with Warfarin VTE Mechanical Devices: Intermittant Pneumatic CD Resuscitation Status: CPR: Attempt Resuscitation Reji Ludwig MD Sep 13, 2016 22:35
--- NOTE | 2016-09-14 01:58 | NUR ---
Facial Pain At 2100 patient complained of 10/10 left sided facial pain. 0.5mg Dilaudid IVP was given, and upon reassessment patient states significant relief and rates her pain a 5/10. Has not needed any additional pain medication at this time. Will continue to monitor pain, and continue Q1 hour checks.
[2016-09-14] MEDS: 0.9% Sodium Chloride 1,000 ML IV SCH ×2 (02:29→16:14)
[2016-09-14] MEDS: HYDROmorphone 0.5 mg/0.5 mL iSecure Syringe IVPUSH PRN ×5 (04:29→23:54)
[2016-09-14 05:05] VITALS: BP 158/77; PULSE 72; RESP 16; O2SAT 99
[2016-09-14] MEDS: Insulin LISPRO 300 Unit/3 mL Inj SUBQ SCH ×4 (08:00→23:49)
[2016-09-14 08:09] LABS: BASOPHILS % (AUTO) 0.1 % (0-3); EOSINOPHILS % (AUTO) 0.1 % (0-5); MONOCYTES % (AUTO) 9.6 % (4-12); Mean Corpuscular Hemoglobin 28.9 pg (27.0-35.0); Mean Corpuscular Volume 93.8 fL (81-100); NEUTROPHILS % (AUTO) 62.2 % (40-74); Platelet Count 320 bil/L (150-400)
[2016-09-14] MEDS: Pantoprazole 40 mg ER24 Tablet PO SCH (08:20)
[2016-09-14] MEDS: carBAMazepine 100 mg ER12 Tablet PO SCH (08:21)
[2016-09-14] MEDS: TIZANIDINE 4 MG PO SCH ×2 (08:22→20:31)
[2016-09-14] MEDS: predniSONE 20 mg Tablet PO SCH (08:22)
[2016-09-14] MEDS: Insulin Human NPH 100 Unit/mL 3 mL Inj SUBQ SCH ×2 (08:24→17:34)
[2016-09-14 08:25] LABS: INR 2.78 ratio
[2016-09-14] MEDS: Fluticasone 0.05% 15 Spray/2 Gm 16 Gm Nasal Spray NASAL SCH (08:28)
[2016-09-14] MEDS: Mupirocin 2% 22 Gm Ointment TOPICAL SCH ×2 (08:30→20:33)
[2016-09-14] MEDS: Nystatin 100,000 Unit/Gm 15 Gm Powder TOPICAL SCH ×3 (08:30→20:33)
[2016-09-14 08:50] LABS: Magnesium 1.9 mg/dL (1.6-2.6)
--- NOTE | 2016-09-14 09:39 | PROG NOTE ---
[address] [address] PROGRESS NOTE PATIENT: LANNY PIRES : 1950 MR#: [id number] ADMIT: 09/08/2016 JOB ID: [id number] DATE: 09/14/2016 NARRATIVE: The patient is sleeping this morning. Her incision is healing well. Pathology is pending. Status post left temporal artery biopsy. Doing well. General Surgery will sign off, please follow up regarding pathology and further treatment of temporal arteritis to the Medicine service.
--- NOTE | 2016-09-14 10:17 | PCM.PHAPRO ---
Progress Warfarin Management by Pharmacy: -Indication: history of dvt -Inr Goal: 2-3 -Home Dose: warfarin 2.5 daily -Concurrent Anticoagulation: none -Coagulation Trends: Sep 10-Sep 11-Sep 12-Sep 13-Aug 14-Sep 1.51 1.52 1.91 2.41 3.31 2.78 #VALUE! 0.01 0.39 0.5 0.9 -0.53 2.5MG 3.5MG 2.5 MG HOLD HOLD 2MG Plan: warfarin has been held for the past 2 days due to supratherapeutic inr. will resume today with a 2mg dose. Kimberly Payton [facility] Sep 14, 2016 10:17
[2016-09-14 10:43] VITALS: BP 165/83; PULSE 75; RESP 15; O2SAT 100
--- NOTE | 2016-09-14 11:52 | NUR ---
Social Work- Continued D/C Planning Data: EMR reviewed. Pt is on day 6 of hospitalization for facial pain per H&P. Pt is not medically stable, anticipate multiple more days. MRI has been completed. Temporal Artery Biopsy has been completed. Pt continues to have jaw pain. Wound Care continues to follow. SW informed pt has PCP appointment next Friday with Matilda Mendieta MD. SW followed up with pt regarding discharge plan, home health. Pt states that she is currently open with [facility] for INR and wound care needs. Pt states they assist son Lance with care at home. Pt will need resume HH orders at discharge, notified through text page. Anticipate pt to return home with son at discharge, resume [facility]. SW will continue to follow. Assessment:Pt who is w/c bound at baseline and open with [facility] RN. Plan: Pt to discharge home with son and resume [facility] RN when medically stable. Pt will need resume HH orders at discharge. SW will continue to follow. CANDELARIO Lyons
--- NOTE | 2016-09-14 13:05 | PCM.PNMED ---
Subjective Date of Service Sep 14, 2016 Subjective Patient now not only complains of left-sided jaw pain but she complains of severe headache and neck pain today. The headache is appears to be in the upper distribution of the trigeminal nerve. She has a heating pad on her head and neck on the right side and an ice pack on her left mandibular jaw. She states that she has tried to drink Glucerna 3 times a day as I had directed her yesterday. However she is unable to chew or eat at this time. Exam Vital Signs Vital Sign - Last Date Time Temp Pulse Resp B/P Pulse Ox O2 Delivery O2 Flow Rate FiO2 09/14/16 10:43 36.4 75 15 165/83 100 Room Air 09/12/16 11:45 7 Intake and Output 09/13/16 09/13/16 09/14/16 Cumulative From/Thru 15:00 23:00 07:00 09/08/16 16:06 - 09/14/16 05:47 Intake Total 565 ml 885 ml 83630 ml Output Total 1700 ml 92277 ml Balance -1135 ml 885 ml -447 ml Intake Oral 480 ml 5136 ml IV Total 85 ml 885 ml 7527 ml Output Urine Total 1700 ml 98840 ml # Bowel Movements 2 Exam General: Patient is in no apparent distress lying supine in bed. She is holding a heating pad to her neck and head on the right and an ice pack to her left mandibular area. She is slightly less somnolent today. He is still very uncomfortable. HEENT: Head is atraumatic and normocephalic. Eyes: Pupils are equally round and reactive to light and accommodation. Extraocular muscles are intact. Sclera are white, anicteric. Subconjunctival mucosa is pink. Ears and nose are unremarkable. Oropharynx: There is no mucosal lesions, there is no thrush, there is no pharyngitis. The left temporal incision looks excellent with no erythema and no crepitance no drainage no bleeding. Neck: Is supple, there are no nodes, or masses or tenderness. Chest: Is clear to auscultation and percussion. There are no rales, rhonchi, wheezes or rubs. Heart: Rate, rhythm is regular. There is no new murmur, rub or gallop. Abdomen: Good bowel sounds are present. Abdomen is soft, nontender, no organomegaly or masses were appreciated. Ileostomy site unremarkable. Extremities: Are symmetrical and well perfused. There is bilateral foot drop. And her extremities are cachectic. There is no edema, there is no cellulitis, no rash. The decubitus ulcers were examined again by R[employer] career development specialist on 09/12/2016. And are described to be the same as described on as follows: "Multiple small ulcers present over an area measuring 6cm W x 5cmL x 0.3cm at deepest. One area covered in soft black eschar and Unstageable. Other areas range from Stage II to Stage III with red wound bases. " Neurologic: There are no focal neurological deficits. Cranial nerves II through XII are intact. There are no sensory or motor deficits. Psychiatric: Patients mood is calm and she shows no sign of agitation. Genital: Deferred Rectal: Deferred Lab and Diagnostics Result Diagram: 09/14/16 0745 09/14/16 0745 X-Rays, CTs and MRIs PROCEDURE: CT BRAIN WITHOUT CONTRAST ([id number]) INDICATIONS: jaw/head pain TECHNIQUE: Noncontrast 4.5 mm thick angled axial sections acquired from the foramen magnum to the vertex, with coronal reformats. COMPARISON: [facility], CT, CT BRAIN WO CON, 01/06/2016, 19:05. [facility], MR, MR BRAIN W&WO CON, 01/13/2016, 12:55. FINDINGS: Image quality: Excellent. CSF spaces: Basal cisterns are patent. No extra-axial fluid collections. The ventricles are symmetric in size and shape. Brain: No intracranial bleeds or masses. There is cerebral volume loss for age , with resultant ventricular and sulcal prominence. No change in mild low density within the periventricular and subcortical white matter, consistent with multiple sclerosis sequelae and/or small vessel ischemic disease. There is intracranial internal carotid artery atherosclerosis. Skull and face: Calvarium and visualized facial bones appear intact, without suspicious lesions. Sinuses: Visualized sinuses and mastoids are clear. IMPRESSION: No acute intracranial abnormality. No explanation for jaw/head pain. Dictated by: Margo Horton M.D. on 09/08/2016 at 17:22 Approved by: Margo Horton M.D. on 09/08/2016 at 17:23 PROCEDURE: MRI BRAIN WITHOUT CONTRAST ([id number]) INDICATIONS: severe left jaw pain TECHNIQUE: Non-contrast axial T1 spin echo, axial T2 fast spin echo, sagittal and axial FLAIR, coronal T2 fast spin echo, axial gradient echo, axial diffusion and ADC through the brain. COMPARISON: [facility], CT, CT BRAIN WO CON, 01/06/2016, 19:05. [facility], CT, CT BRAIN WO CON, 09/08/2016, 16:59. [facility], CT, BRAIN W/O CONTRAST, 04/21/2010, 22:31. MR, STROKE PROTOCOL (PNL) , 04/13/2010, 10:35. MR, STROKE PROTOCOL (PNL), 04/23/2010, 16:57. [facility], MR, MR BRAIN W&WO CON, 01/13/2016, 12:55. FINDINGS: Image quality: Excellent. CSF spaces: Diffuse prominence of the CSF space is noted. Ventricles appear symmetric in shape. Basal cisterns are patent. No extra-axial fluid collections. Brain: No intracranial bleeds or mass effects. There is cerebral volume loss for age. There are severe periventricular and deep white matter chronic small vessel ischemic changes. Brainstem appears normal. Diffusion-weighted images show no acute ischemic insults numerous small lacunar infarcts in noted in the cerebral hemispheres and the left cerebellar hemisphere which is stable compared to prior MRIs. Punctate foci of hypointense susceptibility weighted signal noted in the right frontal lobe, putamen bilaterally, the left temporal lobe, the jayant and the anterior aspect of the medulla. Normal intravascular flow voids are present. Skull and face: Calvarial bone marrow is normal in signal. Orbits are normal. Sinuses: Sinuses and mastoids are clear. IMPRESSION: 1. No acute intracranial disease process. 2. Numerous, chronic, small, lacunar infarcts stable compared to prior MRI examination obtained 01/13/16. Multiple chronic infarcts are suspicious for underlying vasculitis. 3. Severe periventricular and subcortical white matter chronic microvascular ischemic changes. 4. Punctate susceptibility weighted hypointensities in the right frontal lobe bilateral putamen, left temporal lobe, jayant and medulla. Finding is nonspecific but given the distribution suspicious for chronic hypertensive micro-bleeds. Please correlate with clinical data. Dictated by: Yamini Omer MD, PhD on 09/11/2016 at 14:13 Approved by: Yamini Omer MD, PhD on 09/11/2016 at 14:33 PROCEDURE: MRI TEMPOROMANDIBULAR JOINTS ([id number]) INDICATIONS: severe left jaw pain TECHNIQUE: Axial T1 spin echo, coronal and sagittal PD fast spin echo through the temporomandibular joints, in both the closed- and open-mouth positions. COMPARISON: None. FINDINGS: Image quality: Image quality severely limited by patient motion artifact. No temporomandibular joint effusions are identified. No bony erosions or osteophytes. The marrow signal of the osseous structures of the abdomen of the joints is normal. Open closed mouth views are nondiagnostic due to motion artifact. IMPRESSION: 1. No evidence of joint effusion, bony erosion or osteophytosis involving the temporomandibular joints. 2. Functional status of the temporomandibular joints cannot be evaluated due to patient motion artifact. Dictated by: Yamini Omer MD, PhD on 09/11/2016 at 14:34 Approved by: Yamini Omer MD, PhD on 09/11/2016 at 14:37 Assessment & Plan The patient is a 66 y.o. female with a history of Type II DM, MS, CVA, DVT anticoagulated on warfarin, HTN, seizures, chronic decubitus ulcer, trigeminal neuralgia present on admission and ongoing with worsening left facial pain. Patient was admitted to the hospital service for further evaluation and treatment. # Acute on chronic left facial and jaw pain. Present on admission. ongoing - The left jaw pain is of unclear exact etiology but is likely due to Trigeminal Neuralgia, acute on chronic. - Differential diagnosis is Temporal Arteritis especially given the new MRI findings of possible vasculitis. A left temporal artery biopsy was performed on 09/12/[address] Kingsley Robbins. Biopsy results are pending - Patient has history of MS and trigeminal neuralgia - We will continue Prednisone 60 mg PO QD for now, although there is minimal improvement in the patient's pain. He attributes the Tegretol to improving the pain the most at this point. - We will continue Gabapentin 300 mg TID, titrate to pain - We will continue Tegretol XR 200 mg by mouth twice a day - Appreciate neurology consultation. We will follow Dr. Small's recommendations. .- I have discussed the patient's case with Dr. Small of neurology and he states that patients with multiple sclerosis can get both temporal arteritis and /or vasculitis as well as trigeminal neuralgia. # Decubitus Ulcers, acute on chronic - Severe decubitus ulcers over sacrum and coccyx as described above, no leukocytosis on CBC, patient is afebrile at admission - We will continue Nursing wound care per wound care consult - Wound care consult obtained and their help appreciated. - Repeat daily labs with CBC and CMP. Will routinely check magnesium as well and replete as necessary. - Try to optimize nutrition as patient states she has been unable to eat for quite some time. I have encouraged her to drink 3 Glucerna daily. - We will also add a multivitamin, vitamin C, zinc - Discussed case with patient's son Lance at length and I have discussed with patient's primary care physician Dr. Mendieta at length. # Acute Kidney injury noted on admission on chronic kidney disease Present on admission - Renal function appears to continues to improve to baseline. - Continue to monitor I/O - We will continue to check daily labs. Chronic conditions # Insulin-dependent type 2 diabetes. - We will continue to Hold home insulin NPH 35 units BID due to poor by mouth intake. - Started NPH 20 units SQ BID - Low correctional insulin scale ordered and will continue close monitoring. 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 - Continue anticoagulation with warfarin dosed per pharmacy. - Due to malnutrition patient has not required warfarin for the last couple of days. - Also we need to be mindful of Tegretol effecting the patient's warfarin levels. # Multiple sclerosis, presumed stable - We will continue home medication - Continue nursing support with continuing to rotate the patient on her bed # Depression. stable -We will continue home medication # Hyperlipidemia. - We will continue home medication # Allergic rhinitis. -We will continue home medication # Urinary incontinence, with previous suprapubic catheter, - Patient now has a ileal conduit with urostomy. Continue management per wound care team # Hypertension. -We will continue home medication # History of asthma. stable - We will continue Duoneb Q6 PRN # History of MRSA urinary tract infection with recurrent UTIs # Diastolic dysfunction and possible PFO on echo from March 2010. -continue home medication # History of seizures documented at [facility]. -continue home medication # History of hypothyroidism. -continue home medication DVT prophylaxis: Warfarin Disposition: Patient to be here another 1-2 days pending better pain control and better by mouth intake. Patient does have an appointment with Dr. Mendieta her primary care doctor next Friday. Pain Evaluation: Adequate Pain Control GI Prophylaxis: Proton Pump Inhibitor VTE Prophylaxis: Theraputic Anticoag with Warfarin VTE Mechanical Devices: Intermittant Pneumatic CD Resuscitation Status: CPR: Attempt Resuscitation BeverlyReji MD Sep 14, 2016 13:05
[2016-09-14 15:30] VITALS: BP 156/64; PULSE 2; RESP 16; O2SAT 100
--- NOTE | 2016-09-14 19:43 | NUR ---
Pain/activity Pt complaining of severe pain 8-9/10 this morning in neck and jaw, pt asking RN for a hammer to hit her over the head and knock her out. 0.5mg IV Dilaudid administered as well as scheduled Tegretol and Gabapentin, Ice placed on jaw and heat pack on neck. Pt stated the pain was down to 3-4/10 which is tolerable for her. able to keep pain down to 3-4/10 most of shift with PRN Dilaudid. Q2 hour turning done on patient. Dressing changed on Sacral ulcer. heels floated on pillows.
[2016-09-14] MEDS: carBAMazepine 200 mg ER12 Tablet PO SCH (20:31)
[2016-09-14] MEDS: PARoxetine 20 mg Tablet PO SCH (20:31)
[2016-09-14 21:08] VITALS: BP 170/83; PULSE 68; RESP 16; O2SAT 99
--- NOTE | 2016-09-15 01:36 | NUR ---
Pain Pt reports pain 8/10. Rec'd PRN dilaudid with + effects, Pt also rec'd routine gabapentin and tegretol as scheduled. Pt is using ice to jaw/cheek and heat on back of neck. Pt is being repositioned every 2hrs with side to side and bridging, pillows used for floating heels, arms.
[2016-09-15] MEDS: 0.9% Sodium Chloride 1,000 ML IV SCH ×2 (03:47→15:05)
[2016-09-15 05:11] VITALS: BP 151/77; PULSE 66; RESP 16; O2SAT 100
[2016-09-15 07:44] LABS: INR 2.44 ratio
[2016-09-15] MEDS: HYDROmorphone 0.5 mg/0.5 mL iSecure Syringe IVPUSH PRN (07:58)
[2016-09-15] MEDS: Insulin LISPRO 300 Unit/3 mL Inj SUBQ SCH ×4 (08:00→21:15)
[2016-09-15] MEDS: Pantoprazole 40 mg ER24 Tablet PO SCH (08:15)
[2016-09-15] MEDS: predniSONE 20 mg Tablet PO SCH (08:15)
[2016-09-15] MEDS: TIZANIDINE 4 MG PO SCH ×2 (08:16→21:16)
[2016-09-15] MEDS: carBAMazepine 200 mg ER12 Tablet PO SCH ×2 (08:16→21:16)
[2016-09-15] MEDS: Fluticasone 0.05% 15 Spray/2 Gm 16 Gm Nasal Spray NASAL SCH (08:17)
--- NOTE | 2016-09-15 08:18 | PCM.PHAPRO ---
Progress Warfarin Management by Pharmacy: -Indication: history of dvt -Inr Goal: 2-3 -Home Dose: warfarin 2.5 daily -Concurrent Anticoagulation: none -Coagulation Trends: Sep 10-Sep 11-Sep 12-Sep 13-Aug 14-Sep 1.51 1.52 1.91 2.41 3.31 2.78 #VALUE! 0.01 0.39 0.5 0.9 -0.53 2.5MG 3.5MG 2.5 MG HOLD HOLD 2MG -Plan: inr is therapeutic today, 2.44. will proceed with home dose of warfarin 2.5mg Kimberly Payton [facility] Sep 15, 2016 08:18
[2016-09-15] MEDS: Nystatin 100,000 Unit/Gm 15 Gm Powder TOPICAL SCH ×2 (08:30→21:17)
[2016-09-15] MEDS: Mupirocin 2% 22 Gm Ointment TOPICAL SCH ×2 (08:30→21:15)
[2016-09-15] MEDS: Insulin Human NPH 100 Unit/mL 3 mL Inj SUBQ SCH ×2 (08:47→17:59)
[2016-09-15 09:58] LABS: BASOPHILS % (AUTO) 0.2 % (0-3); EOSINOPHILS % (AUTO) 0.6 % (0-5); MONOCYTES % (AUTO) 7.8 % (4-12); Mean Corpuscular Hemoglobin 28.5 pg (27.0-35.0); Mean Corpuscular Volume 92.2 fL (81-100); NEUTROPHILS % (AUTO) 64.3 % (40-74); Platelet Count 276 bil/L (150-400)
[2016-09-15 10:39] LABS: Magnesium 1.9 mg/dL (1.6-2.6)
[2016-09-15 11:12] VITALS: BP 130/73; PULSE 68; RESP 18; O2SAT 98
--- NOTE | 2016-09-15 11:30 | NUR ---
STEPHANE signed. Pinky Andrea [employer]IC[employer]
--- NOTE | 2016-09-15 11:31 | NUR ---
Choice List Provided. Pinky Andrea MSW
--- NOTE | 2016-09-15 11:33 | NUR ---
Social Work- Readiness for Discharge Data: EMR reviewed. Pt is a 66 year old female admitted 7 days ago for facial pain and severe skin breakdown. Pt is not medically stable, anticipate discharge tomorrow pending clinical course. GAVIOTA met with pt regarding discharge plan, Home Health RN. SW misunderstood pt in prior conversations regarding Home Health and thought that pt had [facility] RN. Pt corrected GAVIOTA today and stated that it is [facility] RN. SW provided HH choice list to pt to confirm. Pt states that she was recently discharged from HH RN services prior to being admitted. She states that she would want those services to resume after discharge. GAVIOTA called son/caregiver Kyrie to update him regarding this. He did not answer his home phone and his cell phone does not have a voice mailbox. GAVIOTA left message on home phone. GAVIOTA called [facility] [phone] regarding referral to RN services. GAVIOTA left message with [facility], as they are closed on the weekends. F2F in folder. Pt to discharge with son as caregiver and [facility] RN, son to transport via POV. SW will continue to follow. Assessment: Pt who will benefit from [facility] RN. Plan: SW to follow up with [facility] regarding referral for RN. F2F in folder. Pt to discharge with son as caregiver and [facility] RN, son to transport via POV. GAVIOTA will continue to follow. CANDELARIO Lyons
[2016-09-15] MEDS: oxyCODONE-Acetamin 10-325 mg Tablet PO PRN ×2 (15:05→21:21)
[2016-09-15 15:22] VITALS: BP 156/81; PULSE 76; RESP 16; O2SAT 96
--- NOTE | 2016-09-15 18:41 | NUR ---
Appetite/BG Pt with adequate intake for B/L/D, eating ~50-75% each meal as well as 100% of her Glucerna. Per report, had been taking minimal PO intake d/t jaw/facial pain. Pain remains an issue but pt stating that while pain present has been improved. BG increasing over course of shift. At dinner, BG 411 which is the highest recorded thus far. Cook Page to re: this. Received order to increase NPH dosage. Pt received 5 units Lispro and 35 units NPH. Care continues - continue to monitor.
[2016-09-15 19:49] VITALS: BP 161/74; PULSE 72; RESP 16; O2SAT 100
[2016-09-15] MEDS: PARoxetine 20 mg Tablet PO SCH (21:16)
--- NOTE | 2016-09-15 23:42 | PCM.PNMED ---
Subjective Date of Service Sep 15, 2016 Subjective The patient is being a little bit better and actually ate 70% of her meals today. However, she continues to complain of severe jaw pain. Her headache has improved. Exam Vital Signs Vital Sign - Last Date Time Temp Pulse Resp B/P Pulse Ox O2 Delivery O2 Flow Rate FiO2 09/15/16 19:49 36.6 72 16 161/74 100 Room Air 09/12/16 11:45 7 Intake and Output 09/14/16 09/14/16 09/15/16 Cumulative From/Thru 15:00 23:00 07:00 09/08/16 16:06 - 09/15/16 06:16 Intake Total 800 ml 2579 ml 1273 ml 47903 ml Output Total 1900 ml 2150 ml 2250 ml 27534 ml Balance -1100 ml 429 ml -977 ml -2095 ml Intake Oral 800 ml 1472 ml 420 ml 7828 ml IV Total 1107 ml 853 ml 9487 ml Output Urine Total 1900 ml 2150 ml 2250 ml 01108 ml # Bowel Movements 0 2 Exam General: Patient is in no apparent distress lying supine in bed. She used to hold a heating pad to her neck and head on the right and an ice pack to her left mandibular area. She is more alert and responsive today. He is still very uncomfortable. HEENT: Head is atraumatic and normocephalic. Eyes: Pupils are equally round and reactive to light and accommodation. Extraocular muscles are intact. Sclera are white, anicteric. Subconjunctival mucosa is pink. Ears and nose are unremarkable. Oropharynx: There is no mucosal lesions, there is no thrush, there is no pharyngitis. The left temporal incision looks excellent with no erythema and no crepitance no drainage no bleeding. Neck: Is supple, there are no nodes, or masses or tenderness. Chest: Is clear to auscultation and percussion. There are no rales, rhonchi, wheezes or rubs. Heart: Rate, rhythm is regular. There is no new murmur, rub or gallop. Abdomen: Good bowel sounds are present. Abdomen is soft, nontender, no organomegaly or masses were appreciated. Ileostomy site unremarkable. Extremities: Are symmetrical and well perfused. There is bilateral foot drop. And her extremities are cachectic. There is no edema, there is no cellulitis, no rash. The decubitus ulcers were examined again by [facility] behavior management specialist on 09/12/2016. And are described to be the same as described on as follows: "Multiple small ulcers present over an area measuring 6cm W x 5cmL x 0.3cm at deepest. One area covered in soft black eschar and Unstageable. Other areas range from Stage II to Stage III with red wound bases. " Neurologic: There are no focal neurological deficits. Cranial nerves II through XII are intact. There are no sensory or motor deficits. Psychiatric: Patients mood is calm and she shows no sign of agitation. Genital: Deferred Rectal: Deferred Lab and Diagnostics Result Diagram: 09/15/1694409/15/16944 X-Rays, CTs and MRIs PROCEDURE: CT BRAIN WITHOUT CONTRAST ([id number]) INDICATIONS: jaw/head pain TECHNIQUE: Noncontrast 4.5 mm thick angled axial sections acquired from the foramen magnum to the vertex, with coronal reformats. COMPARISON: [facility], CT, CT BRAIN WO CON, 01/06/2016, 19:05. [facility], MR, MR BRAIN W&WO CON, 01/13/2016, 12:55. FINDINGS: Image quality: Excellent. CSF spaces: Basal cisterns are patent. No extra-axial fluid collections. The ventricles are symmetric in size and shape. Brain: No intracranial bleeds or masses. There is cerebral volume loss for age , with resultant ventricular and sulcal prominence. No change in mild low density within the periventricular and subcortical white matter, consistent with multiple sclerosis sequelae and/or small vessel ischemic disease. There is intracranial internal carotid artery atherosclerosis. Skull and face: Calvarium and visualized facial bones appear intact, without suspicious lesions. Sinuses: Visualized sinuses and mastoids are clear. IMPRESSION: No acute intracranial abnormality. No explanation for jaw/head pain. Dictated by: Margo Horton M.D. on 09/08/2016 at 17:22 Approved by: Margo Horton M.D. on 09/08/2016 at 17:23 PROCEDURE: MRI BRAIN WITHOUT CONTRAST ([id number]) INDICATIONS: severe left jaw pain TECHNIQUE: Non-contrast axial T1 spin echo, axial T2 fast spin echo, sagittal and axial FLAIR, coronal T2 fast spin echo, axial gradient echo, axial diffusion and ADC through the brain. COMPARISON: [facility], CT, CT BRAIN WO CON, 01/06/2016, 19:05. [facility], CT, CT BRAIN WO CON, 09/08/2016, 16:59. [facility], CT, BRAIN W/O CONTRAST, 04/21/2010, 22:31. MR, STROKE PROTOCOL (PNL) , 04/13/2010, 10:35. MR, STROKE PROTOCOL (PNL), 04/23/2010, 16:57. [facility], MR, MR BRAIN W&WO CON, 01/13/2016, 12:55. FINDINGS: Image quality: Excellent. CSF spaces: Diffuse prominence of the CSF space is noted. Ventricles appear symmetric in shape. Basal cisterns are patent. No extra-axial fluid collections. Brain: No intracranial bleeds or mass effects. There is cerebral volume loss for age. There are severe periventricular and deep white matter chronic small vessel ischemic changes. Brainstem appears normal. Diffusion-weighted images show no acute ischemic insults numerous small lacunar infarcts in noted in the cerebral hemispheres and the left cerebellar hemisphere which is stable compared to prior MRIs. Punctate foci of hypointense susceptibility weighted signal noted in the right frontal lobe, putamen bilaterally, the left temporal lobe, the jayant and the anterior aspect of the medulla. Normal intravascular flow voids are present. Skull and face: Calvarial bone marrow is normal in signal. Orbits are normal. Sinuses: Sinuses and mastoids are clear. IMPRESSION: 1. No acute intracranial disease process. 2. Numerous, chronic, small, lacunar infarcts stable compared to prior MRI examination obtained 01/13/16. Multiple chronic infarcts are suspicious for underlying vasculitis. 3. Severe periventricular and subcortical white matter chronic microvascular ischemic changes. 4. Punctate susceptibility weighted hypointensities in the right frontal lobe bilateral putamen, left temporal lobe, jayant and medulla. Finding is nonspecific but given the distribution suspicious for chronic hypertensive micro-bleeds. Please correlate with clinical data. Dictated by: Yamini Omer MD, PhD on 09/11/2016 at 14:13 Approved by: Yamini Omer MD, PhD on 09/11/2016 at 14:33 PROCEDURE: MRI TEMPOROMANDIBULAR JOINTS ([id number]) INDICATIONS: severe left jaw pain TECHNIQUE: Axial T1 spin echo, coronal and sagittal PD fast spin echo through the temporomandibular joints, in both the closed- and open-mouth positions. COMPARISON: None. FINDINGS: Image quality: Image quality severely limited by patient motion artifact. No temporomandibular joint effusions are identified. No bony erosions or osteophytes. The marrow signal of the osseous structures of the abdomen of the joints is normal. Open closed mouth views are nondiagnostic due to motion artifact. IMPRESSION: 1. No evidence of joint effusion, bony erosion or osteophytosis involving the temporomandibular joints. 2. Functional status of the temporomandibular joints cannot be evaluated due to patient motion artifact. Dictated by: Yamini Omer MD, PhD on 09/11/2016 at 14:34 Approved by: Yamini Omer MD, PhD on 09/11/2016 at 14:37 Assessment & Plan The patient is a 66 y.o. female with a history of Type II DM, MS, CVA, DVT anticoagulated on warfarin, HTN, seizures, chronic decubitus ulcer, trigeminal neuralgia present on admission and ongoing with worsening left facial pain. Patient was admitted to the hospital service for further evaluation and treatment. # Acute on chronic left facial and jaw pain. Present on admission. ongoing - The left jaw pain is of unclear exact etiology but is likely due to Trigeminal Neuralgia, acute on chronic. - Differential diagnosis is Temporal Arteritis especially given the new MRI findings of possible vasculitis. A left temporal artery biopsy was performed on 09/12/[address] Kingsley Robbins. Biopsy results are pending - Patient has history of MS and trigeminal neuralgia - We will continue Prednisone 60 mg PO QD for now, although there is no evidence that the prednisone has made any improvement in the patient's pain. The patient attributes the Tegretol to improving the pain the most at this point. - We will continue Gabapentin 300 mg TID, titrate to pain - We will continue Tegretol XR increase the dose to 400 mg by mouth twice a day - Appreciate neurology consultation. We will follow Dr. Small's recommendations. .- I have discussed the patient's case with Dr. Small of neurology and he states that patients with multiple sclerosis can get both temporal arteritis and /or vasculitis as well as trigeminal neuralgia. # Decubitus Ulcers, acute on chronic - Severe decubitus ulcers over sacrum and coccyx as described above, no leukocytosis on CBC, patient is afebrile at admission - We will continue Nursing wound care per wound care consult - Wound care consult obtained and their help appreciated. - Repeat daily labs with CBC and CMP. Will routinely check magnesium as well and replete as necessary. - Try to optimize nutrition as patient states she has been unable to eat for quite some time. I have encouraged her to drink 3 Glucerna daily. - We will also add a multivitamin, vitamin C, vitamin E and zinc - Discussed case with patient's son Lance at length and I have discussed with patient's primary care physician Dr. Mendieta at length. # Acute Kidney injury noted on admission on chronic kidney disease Present on admission - Renal function appears to continues to improve to baseline. - Continue to monitor I/O - We will continue to check daily labs. Chronic conditions # Insulin-dependent type 2 diabetes. - We will continue to Hold home insulin NPH 35 units BID due to poor by mouth intake. - Started NPH 20 units SQ BID - Low correctional insulin scale ordered and will continue close monitoring. 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 - Continue anticoagulation with warfarin dosed per pharmacy. - Due to malnutrition patient has not required warfarin for the last couple of days. - Also we need to be mindful of Tegretol effecting the patient's warfarin levels. # Multiple sclerosis, presumed stable - We will continue home medication - Continue nursing support with continuing to rotate the patient on her bed # Depression. stable -We will continue home medication # Hyperlipidemia. - We will continue home medication # Allergic rhinitis. -We will continue home medication # Urinary incontinence, with previous suprapubic catheter, - Patient now has a ileal conduit with urostomy. Continue management per wound care team # Hypertension. -We will continue home medication # History of asthma. stable - We will continue Duoneb Q6 PRN # History of MRSA urinary tract infection with recurrent UTIs # Diastolic dysfunction and possible PFO on echo from March 2010. -continue home medication # History of seizures documented at [facility]. -continue home medication # History of hypothyroidism. -continue home medication DVT prophylaxis: Warfarin Disposition: Patient to be here another 1-2 days pending better pain control and better by mouth intake. Patient does have an appointment with Dr. Mendieta her primary care doctor next Friday. I have signed out to Dr. Benitez and he will follow in a.m. Pain Evaluation: Adequate Pain Control GI Prophylaxis: Proton Pump Inhibitor VTE Prophylaxis: Theraputic Anticoag with Warfarin VTE Mechanical Devices: Intermittant Pneumatic CD Resuscitation Status: CPR: Attempt Resuscitation Reji Ludwig MD Sep 15, 2016 23:42
[2016-09-16] MEDS: 0.9% Sodium Chloride 1,000 ML IV SCH ×2 (01:56→18:02)
[2016-09-16] MEDS: oxyCODONE-Acetamin 10-325 mg Tablet PO PRN ×3 (04:44→20:43)
[2016-09-16 04:52] VITALS: BP 174/77; PULSE 69; RESP 16; O2SAT 99
[2016-09-16 05:36] LABS: BASOPHILS % (AUTO) 0.2 % (0-3); EOSINOPHILS % (AUTO) 0.1 % (0-5); MONOCYTES % (AUTO) 6.8 % (4-12); Mean Corpuscular Hemoglobin 29.3 pg (27.0-35.0); Mean Corpuscular Volume 92.7 fL (81-100); NEUTROPHILS % (AUTO) 69.3 % (40-74); Platelet Count 319 bil/L (150-400)
[2016-09-16 05:52] LABS: Magnesium 1.9 mg/dL (1.6-2.6)
[2016-09-16 05:54] LABS: INR 2.99 ratio
[2016-09-16] MEDS: Pantoprazole 40 mg ER24 Tablet PO SCH (07:26)
[2016-09-16] MEDS ORDERED: Insulin Human NPH 100 Unit/mL 3 mL Inj SUBQ SCH (07:30)
--- NOTE | 2016-09-16 08:03 | PATH ---
SURGICAL PATHOLOGY Attending Physician:Kingsley Robbins MD CASE STATUS: Signed Out PATIENT NAME: LANNY PIRES PID: [id number] : 1950 DATE COLLECTED:09/12/2016 00:00 SPECIMEN: Artery, Biopsy CLINICAL HISTORY: LEFT POSSIBLE TEMPORAL ARTIRITIS 1). LEFT TEMPORAL ARTERY FINAL DIAGNOSIS: Left Temporal Artery: Medium-sized muscular artery with no diagnostic abnormality. Negative for arteritis. ICD10 G44.8 GROSS DESCRIPTION: The specimen is received in one formalin filled container labeled with the patient's name, sublabeled "left temporal artery" and consists of a 2.0 x 0.2 x 0.2 CM tom-zepeda cylindrical-shaped portion of tissue. The specimen is inked blue and entirely submitted in one cassette to be possibly further sectioning at the time of embedding. 09/12/2016 DAC MICRO DESCRIPTION: An elastic stain was performed and confirms the presence of an artery with no diagnostic abnormality. ICD-9 CODES: CPT CODES: 1: 47601 Electronically Signed Out Orlin Jones MD, PhD [facility] [address], [place] [address] Technical component performed at [facility], [address] [place] [address] Ave[address], [place], [address]
[2016-09-16] MEDS: Insulin Human NPH 100 Unit/mL 3 mL Inj SUBQ SCH ×2 (08:09→18:18)
[2016-09-16] MEDS: Insulin LISPRO 300 Unit/3 mL Inj SUBQ SCH ×4 (08:10→23:40)
--- NOTE | 2016-09-16 08:23 | PCM.PHAPRO ---
Progress Warfarin Management by Pharmacy: -Indication: history of dvt -Inr Goal: 2-3 -Home Dose: warfarin 2.5 daily -Concurrent Anticoagulation: none -Coagulation Trends: Sep 09-Sep 10-Sep 11-Sep 12-Sep 13-Aug 14-Sep 2-Sep 16-Sep NA 1.51 1.52 1.91 2.41 3.31 2.78 2.44 2.99 #VALUE! 0.01 0.39 0.5 0.9 -0.53 -0.34 0.55 -Plan: will hold dose of warfarin this evening. Inr is therapeutic at 2.99, high end of normal further eval/monitoring in the am Kimberly Payton [facility] Sep 16, 2016 08:23
[2016-09-16] MEDS: Mupirocin 2% 22 Gm Ointment TOPICAL SCH ×2 (08:30→20:45)
[2016-09-16] MEDS: Fluticasone 0.05% 15 Spray/2 Gm 16 Gm Nasal Spray NASAL SCH (08:30)
[2016-09-16 08:49] VITALS: BP 167/82; PULSE 73; RESP 18; O2SAT 99
[2016-09-16] MEDS: TIZANIDINE 4 MG PO SCH ×2 (08:57→20:43)
[2016-09-16] MEDS: Ascorbic Acid 500 mg Tablet PO SCH ×2 (08:57→20:39)
[2016-09-16] MEDS: carBAMazepine 200 mg ER12 Tablet PO SCH ×2 (09:00→19:06)
[2016-09-16 09:04] VITALS: BP 160/74
--- NOTE | 2016-09-16 10:01 | PCM.PNMED ---
Subjective Date of Service Sep 16, 2016 Subjective pt looked very distressed with anxiety, stated "I can't breath, I can't move" but followed commands, able to take a deep breath which made her feel better. she thinks that jaw pain seems better, asked me to touch base with her son. Exam Vital Signs Vital Sign - Last Date Time Temp Pulse Resp B/P Pulse Ox O2 Delivery O2 Flow Rate FiO2 09/16/16 09:04 160/74 09/16/16 08:49 36.5 73 18 99 Room Air 09/12/16 11:45 7 Intake and Output 09/15/16 09/15/16 09/16/16 Cumulative From/Thru 15:00 23:00 07:00 09/08/16 16:06 - 09/16/16 05:36 Intake Total 2674 ml 1310 ml 91728 ml Output Total 2250 ml 2150 ml 81943 ml Balance 424 ml -840 ml -2511 ml Intake Oral 1711 ml 450 ml 9989 ml IV Total 963 ml 860 ml 46721 ml Output Urine Total 2250 ml 2150 ml 70799 ml # Bowel Movements 2 Exam frail, elderly, laying down on bed. no JVD, MMM, no LAD RRR, nl s1, s2 no mrg CTAB, no w,c S,ND,NT,normoactive BS+ warm, no edema, pulses 2/2 neuro: CN2-12 grossly intact, able to move upper extremities, motor 3/5 LE, symmetric. IVs and Medications Medications Reviewed: Medications were reviewed in detail Lab and Diagnostics Result Diagram: 09/16/16 0502 09/16/16 0502 X-Rays, CTs and MRIs PROCEDURE: CT BRAIN WITHOUT CONTRAST ([id number]) INDICATIONS: jaw/head pain TECHNIQUE: Noncontrast 4.5 mm thick angled axial sections acquired from the foramen magnum to the vertex, with coronal reformats. COMPARISON: [facility], CT, CT BRAIN WO CON, 01/06/2016, 19:05. [facility], MR, MR BRAIN W&WO CON, 01/13/2016, 12:55. FINDINGS: Image quality: Excellent. CSF spaces: Basal cisterns are patent. No extra-axial fluid collections. The ventricles are symmetric in size and shape. Brain: No intracranial bleeds or masses. There is cerebral volume loss for age , with resultant ventricular and sulcal prominence. No change in mild low density within the periventricular and subcortical white matter, consistent with multiple sclerosis sequelae and/or small vessel ischemic disease. There is intracranial internal carotid artery atherosclerosis. Skull and face: Calvarium and visualized facial bones appear intact, without suspicious lesions. Sinuses: Visualized sinuses and mastoids are clear. IMPRESSION: No acute intracranial abnormality. No explanation for jaw/head pain. Dictated by: Margo Horton M.D. on 09/08/2016 at 17:22 Approved by: Margo Horton M.D. on 09/08/2016 at 17:23 PROCEDURE: MRI BRAIN WITHOUT CONTRAST ([id number]) INDICATIONS: severe left jaw pain TECHNIQUE: Non-contrast axial T1 spin echo, axial T2 fast spin echo, sagittal and axial FLAIR, coronal T2 fast spin echo, axial gradient echo, axial diffusion and ADC through the brain. COMPARISON: [facility], CT, CT BRAIN WO CON, 01/06/2016, 19:05. [facility], CT, CT BRAIN WO CON, 09/08/2016, 16:59. [facility], CT, BRAIN W/O CONTRAST, 04/21/2010, 22:31. MR, STROKE PROTOCOL (PNL) , 04/13/2010, 10:35. MR, STROKE PROTOCOL (PNL), 04/23/2010, 16:57. [facility], MR, MR BRAIN W&WO CON, 01/13/2016, 12:55. FINDINGS: Image quality: Excellent. CSF spaces: Diffuse prominence of the CSF space is noted. Ventricles appear symmetric in shape. Basal cisterns are patent. No extra-axial fluid collections. Brain: No intracranial bleeds or mass effects. There is cerebral volume loss for age. There are severe periventricular and deep white matter chronic small vessel ischemic changes. Brainstem appears normal. Diffusion-weighted images show no acute ischemic insults numerous small lacunar infarcts in noted in the cerebral hemispheres and the left cerebellar hemisphere which is stable compared to prior MRIs. Punctate foci of hypointense susceptibility weighted signal noted in the right frontal lobe, putamen bilaterally, the left temporal lobe, the jayant and the anterior aspect of the medulla. Normal intravascular flow voids are present. Skull and face: Calvarial bone marrow is normal in signal. Orbits are normal. Sinuses: Sinuses and mastoids are clear. IMPRESSION: 1. No acute intracranial disease process. 2. Numerous, chronic, small, lacunar infarcts stable compared to prior MRI examination obtained 01/13/16. Multiple chronic infarcts are suspicious for underlying vasculitis. 3. Severe periventricular and subcortical white matter chronic microvascular ischemic changes. 4. Punctate susceptibility weighted hypointensities in the right frontal lobe bilateral putamen, left temporal lobe, jayant and medulla. Finding is nonspecific but given the distribution suspicious for chronic hypertensive micro-bleeds. Please correlate with clinical data. Dictated by: Yamini Omer MD, PhD on 09/11/2016 at 14:13 Approved by: Yamini Omer MD, PhD on 09/11/2016 at 14:33 PROCEDURE: MRI TEMPOROMANDIBULAR JOINTS ([id number]) INDICATIONS: severe left jaw pain TECHNIQUE: Axial T1 spin echo, coronal and sagittal PD fast spin echo through the temporomandibular joints, in both the closed- and open-mouth positions. COMPARISON: None. FINDINGS: Image quality: Image quality severely limited by patient motion artifact. No temporomandibular joint effusions are identified. No bony erosions or osteophytes. The marrow signal of the osseous structures of the abdomen of the joints is normal. Open closed mouth views are nondiagnostic due to motion artifact. IMPRESSION: 1. No evidence of joint effusion, bony erosion or osteophytosis involving the temporomandibular joints. 2. Functional status of the temporomandibular joints cannot be evaluated due to patient motion artifact. Dictated by: Yamini Omer MD, PhD on 09/11/2016 at 14:34 Approved by: Yamini Omer MD, PhD on 09/11/2016 at 14:37 Assessment & Plan The patient is a 66 y.o. female with a history of Type II DM, MS, CVA, DVT anticoagulated on warfarin, HTN, seizures, chronic decubitus ulcer, trigeminal neuralgia present on admission and ongoing with worsening left facial pain. Patient was admitted to the hospital service for further evaluation and treatment. # Acute on chronic left facial and jaw pain. Present on admission.pt has history of MS and trigeminal neuralgiamost likely -Trigeminal Neuralgia, acute on chronic. initially suspicion was temporal Arteritis based on MRI, but excluded with negative biopsy on 09/12/16. - today, pt had transient attack with decreased motors bilaterally, remained MS intact, improved with supportive tx, no seizure activity noticed. -will continue frequent neurochecks. -started Prednisone 60 mg PO QD, stopped today 09/16 - We will continue Gabapentin 300 mg TID, titrate to pain - increased TegretolXR 400 bid yesterday, will decrease it to 200 bid given possible adverse effect from tegretol, will touch base with for further recs. - monitor response with Tegretol # Decubitus Ulcers, acute on chronic - Severe decubitus ulcers over sacrum and coccyx as described above, no leukocytosis on CBC, patient is afebrile at admission - We will continue Nursing wound care per wound care consult - Wound care consult obtained and their help appreciated. - Repeat daily labs with CBC and CMP. Will routinely check magnesium as well and replete as necessary. - Try to optimize nutrition as patient states she has been unable to eat for quite some time. I have encouraged her to drink 3 Glucerna daily. - We will also add a multivitamin, vitamin C, vitamin E and zinc - Discussed case with patient's son Lance at length and I have discussed with patient's primary care physician Dr. Mendieta at length. # Acute Kidney injury noted on admission on chronic kidney disease Present on admission - Renal function appears to continues to improve to baseline. - Continue to monitor I/O - We will continue to check daily labs. Chronic conditions # Insulin-dependent type 2 diabetes. - We will continue to Hold home insulin NPH 35 units BID due to poor by mouth intake. - Started NPH 20 units SQ BID - Low correctional insulin scale ordered and will continue close monitoring. 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 - Continue anticoagulation with warfarin dosed per pharmacy. - Due to malnutrition patient has not required warfarin for the last couple of days. - Also we need to be mindful of Tegretol effecting the patient's warfarin levels. # Multiple sclerosis, presumed stable - We will continue home medication - Continue nursing support with continuing to rotate the patient on her bed # Depression. stable -We will continue home medication # Hyperlipidemia. - We will continue home medication # Allergic rhinitis. -We will continue home medication # Urinary incontinence, with previous suprapubic catheter, - Patient now has a ileal conduit with urostomy. Continue management per wound care team # Hypertension. -We will continue home medication # History of asthma. stable - We will continue Duoneb Q6 PRN # History of MRSA urinary tract infection with recurrent UTIs # Diastolic dysfunction and possible PFO on echo from March 2010. -continue home medication # History of seizures documented at [facility]. -continue home medication # History of hypothyroidism. -continue home medication DVT prophylaxis: Warfarin Disposition: likely tomorrow home with , GI Prophylaxis: Proton Pump Inhibitor VTE Prophylaxis: Theraputic Anticoag with Warfarin VTE Mechanical Devices: Intermittant Pneumatic CD Resuscitation Status: CPR: Attempt Resuscitation Time spent 35min Moriah Benitez MD Sep 16, 2016 10:01
--- NOTE | 2016-09-16 10:38 | NUR ---
Palliative care note D/A: Referral kindly received today from Dr. Benitez who indicates need for assistance with both pain as well as goals of care. Pt is a 66 year old female, diagnosed in 1993 with MS. She lives with her son Lance who is her primary caregiver and has performed this service for 24 + years.. Lance can be reached at [phone] and [phone]. Notes from 12/29 indicated that Lance had started receiving respite services thru [facility] on /Fri and that pt [facility] worker was Zoe Sutton. Pt with recent history of [employer]. Family has indicated that pt has DPOA paperwork. Pt is noted to be needing total assist as she is bedbound and wheelchair bound, with caregivers assisting in all ADL's. Dr. Neri to consult. P: Palliative care to follow. [facility]ASQUE[facility] Addendum: 09/16/16 at 1230 by [facility] note amendment Consult cancelled. Dr. Neri has reviewed chart, including neurology notes and spoken to Dr. Benitez. Plan will be for hospitalists to continue to progress along with treatment recommendations given by neurology and if pt still has pain/goals of care needs in the future, consult should be considered at that time. Eden VASQUEZ [facility]
--- NOTE | 2016-09-16 10:39 | NUR ---
Distress / SOB At approximately 0845 pt became tearful and crying. Stated she thought she had had another CVA and that she couldn't move her left hand. Pt's speech was clear and no facial drooping noted. Checked pt's VS: BP was elevated at 167/82. Administered pt's scheduled gabapentin and Tegretol. Pt continued to be upset and complained that she couldn't move her head. Pt was flexing and extending her neck and turning her head side to side as she said this. Asked her if she meant she was having trouble holding her head up and replied yes. Pt also c/o feeling that she couldn't breathe. Administered 2 lpm oxygen via nasal cannula. Checked pt's BP again at 0904 and it was 160/74. Hospitalist notified of pt's complaints. Pt resting comfortably now and states she feels better.
[2016-09-16] MEDS: Multivitamins w/Minerals 5 mL Liquid Supplement PO SCH (10:54)
[2016-09-16] MEDS: Nystatin 100,000 Unit/Gm 15 Gm Powder TOPICAL SCH ×2 (11:27→20:45)
--- NOTE | 2016-09-16 11:54 | NUR ---
Wound Care [facility] Patient seen for dressing change to wounds to sacrum. Son Kyrie present during wound care and has multiple questions about dressings, as he will be providing wound care upon dc home. All questions answered. Wounds with minimal bleeding with dressing removal. Kyrie states that he uses adhesive remover when slowly taking dressing off at home to avoid bleeding due to fragile skin. Wounds cleansed with NS and patted dry. Periwound area remains red, but not as bright red as last 2 visits and continues blanchable. Applied skin prep periwounds. Open areas remain stable. Covered with sacral Mepilex. Recommend continued turning q2 hours avoiding supine positions and nursing to change dressing q48 hours and PRN soiled. Recommend slowly removing old dressing while using adhesive remover as needed to decrease bleeding during dressing changes. Wound care to continue to follow up as needed.
[2016-09-16 13:01] VITALS: BP 154/78; PULSE 69; RESP 18; O2SAT 97
[2016-09-16] MEDS: HYDROmorphone 0.5 mg/0.5 mL iSecure Syringe IVPUSH PRN (14:15)
--- NOTE | 2016-09-16 14:19 | NUR ---
Pain Pt c/o increased pain today, especially in her neck. Heating pad in place, but does not help much. Pt frequently moaning and calling out, "Help me." Administered pt's scheduled gabapentin and Tegretol. Pt falls asleep for a bit then later calls out in pain. Maintaining Q 2 hr turns with additional support and padding under her neck. Also administered 0.5 mg IVP Dilaudid to help with pt's pain. Care continues.
[2016-09-16 17:39] VITALS: BP 152/84; PULSE 69; RESP 18; O2SAT 98
--- NOTE | 2016-09-16 18:00 | NUR ---
Hold Tegretol Per verbal order from Dr Todd Benitez, hold pt's 2030 Tegretol dose this p.m.
[2016-09-16 19:55] VITALS: BP 147/78; PULSE 69; O2SAT 96
[2016-09-16] MEDS: PARoxetine 20 mg Tablet PO SCH (20:39)
[2016-09-17 05:00] VITALS: BP 153/74; PULSE 72; RESP 16; O2SAT 97
[2016-09-17 06:15] LABS: BASOPHILS % (AUTO) 0 % (0-3); EOSINOPHILS % (AUTO) 2.4 % (0-5); MONOCYTES % (AUTO) 10.3 % (4-12); Mean Corpuscular Hemoglobin 28.7 pg (27.0-35.0); Mean Corpuscular Volume 93.8 fL (81-100); NEUTROPHILS % (AUTO) 53.8 % (40-74); Platelet Count 309 bil/L (150-400)
[2016-09-17] MEDS: 0.9% Sodium Chloride 1,000 ML IV SCH ×2 (06:35→19:05)
[2016-09-17 06:42] LABS: Phosphorus 3.9 mg/dL (2.5-4.9)
[2016-09-17 06:51] LABS: INR 2.92 ratio
[2016-09-17] MEDS: Insulin Human NPH 100 Unit/mL 3 mL Inj SUBQ SCH (07:30)
[2016-09-17] MEDS ORDERED: Insulin Human NPH 100 Unit/mL 3 mL Inj SUBQ SCH (07:30)
--- NOTE | 2016-09-17 07:46 | NUR ---
Pain Tegratol held per order. Pt appears lathargic and has less control of her hands this evening, CS of 56 at 2300 and hypoglycemia protocol completed. Pain in jaw/head/neck medicated with PO medication. No SOB this shift. Turn Q2, care continues
[2016-09-17] MEDS: Insulin LISPRO 300 Unit/3 mL Inj SUBQ SCH ×4 (08:00→21:31)
[2016-09-17] MEDS: Ascorbic Acid 500 mg Tablet PO SCH ×2 (08:16→21:30)
[2016-09-17] MEDS: carBAMazepine 200 mg ER12 Tablet PO SCH ×2 (08:16→21:30)
[2016-09-17] MEDS: TIZANIDINE 4 MG PO SCH ×2 (08:17→21:29)
[2016-09-17] MEDS: Multivitamins w/Minerals 5 mL Liquid Supplement PO SCH (08:17)
[2016-09-17] MEDS: Fluticasone 0.05% 15 Spray/2 Gm 16 Gm Nasal Spray NASAL SCH (08:17)
[2016-09-17] MEDS: Nystatin 100,000 Unit/Gm 15 Gm Powder TOPICAL SCH ×2 (08:21→21:31)
[2016-09-17] MEDS: Mupirocin 2% 22 Gm Ointment TOPICAL SCH ×2 (08:22→21:30)
[2016-09-17] MEDS: Pantoprazole 40 mg ER24 Tablet PO SCH (08:28)
--- NOTE | 2016-09-17 08:33 | PCM.PHAPRO ---
Progress Warfarin Management by Pharmacy: -Indication: history of dvt -Inr Goal: 2-3 -Home Dose: warfarin 2.5 daily -Concurrent Anticoagulation: none -Coagulation Trends: Sep 10-Sep 11-Sep 12-Sep 13-Aug 14-Sep 15-Sep 3-Sep 17-Sep 1.51 1.52 1.91 2.41 3.31 2.78 2.44 2.99 2.92 #VALUE! 0.01 0.39 0.5 0.9 -0.53 -0.34 0.55 -0.07 2.5MG 3.5MG 2.5 MG HOLD HOLD 2MG 2.5mg hold 2MG -Plan: dose of warfarin had been held last evening as pt was at the high end of normal range, 2.99. will resume this evening as inr is 2.92 and will give a 2mg dose Kimberly Payton [facility] Sep 17, 2016 08:32
--- NOTE | 2016-09-17 11:20 | PCM.PNMED ---
Subjective Date of Service Sep 17, 2016 Subjective Pt was bit drowsy yesterday evening, so Tegretol was held Since steroid was stopped, fsg running low as 70s, MS was wax and wane, able to tell her name, place. able to eat with assistance Son Lance thinks she is more drowsy, acting different. Exam Vital Signs Vital Sign - Last Date Time Temp Pulse Resp B/P Pulse Ox O2 Delivery O2 Flow Rate FiO2 09/17/16 05:00 36.6 72 16 153/74 97 Room Air 09/12/16 11:45 7 Intake and Output 09/16/16 09/16/16 09/17/16 Cumulative From/Thru 15:00 23:00 07:00 09/08/16 16:06 - 09/17/16 06:24 Intake Total 527 ml 920 ml 0 ml 39995 ml Output Total 1550 ml 1250 ml 66216 ml Balance 527 ml -630 ml -1250 ml -3864 ml Intake Oral 920 ml 0 ml 89261 ml IV Total 527 ml 15596 ml Output Urine Total 1550 ml 1250 ml 97353 ml # Bowel Movements 0 2 Exam frail, elderly, laying down on bed. no JVD, MMM, no LAD RRR, nl s1, s2 no mrg CTAB, no w,c S,ND,NT,normoactive BS+ warm, no edema, pulses 2/2 UE: Able to move upper extremities, motor 2-3/5 LE motor 3/5 , symmetric. IVs and Medications Medications Reviewed: Medications were reviewed in detail Lab and Diagnostics Result Diagram: 09/17/1652909/17/1630 X-Rays, CTs and MRIs PROCEDURE: CT BRAIN WITHOUT CONTRAST ([id number]) INDICATIONS: jaw/head pain TECHNIQUE: Noncontrast 4.5 mm thick angled axial sections acquired from the foramen magnum to the vertex, with coronal reformats. COMPARISON: [facility], CT, CT BRAIN WO CON, 01/06/2016, 19:05. [facility], MR, MR BRAIN W&WO CON, 01/13/2016, 12:55. FINDINGS: Image quality: Excellent. CSF spaces: Basal cisterns are patent. No extra-axial fluid collections. The ventricles are symmetric in size and shape. Brain: No intracranial bleeds or masses. There is cerebral volume loss for age , with resultant ventricular and sulcal prominence. No change in mild low density within the periventricular and subcortical white matter, consistent with multiple sclerosis sequelae and/or small vessel ischemic disease. There is intracranial internal carotid artery atherosclerosis. Skull and face: Calvarium and visualized facial bones appear intact, without suspicious lesions. Sinuses: Visualized sinuses and mastoids are clear. IMPRESSION: No acute intracranial abnormality. No explanation for jaw/head pain. Dictated by: Margo Horton M.D. on 09/08/2016 at 17:22 Approved by: Margo Horton M.D. on 09/08/2016 at 17:23 PROCEDURE: MRI BRAIN WITHOUT CONTRAST ([id number]) INDICATIONS: severe left jaw pain TECHNIQUE: Non-contrast axial T1 spin echo, axial T2 fast spin echo, sagittal and axial FLAIR, coronal T2 fast spin echo, axial gradient echo, axial diffusion and ADC through the brain. COMPARISON: [facility], CT, CT BRAIN WO CON, 01/06/2016, 19:05. [facility], CT, CT BRAIN WO CON, 09/08/2016, 16:59. [facility], CT, BRAIN W/O CONTRAST, 04/21/2010, 22:31. MR, STROKE PROTOCOL (PNL) , 04/13/2010, 10:35. MR, STROKE PROTOCOL (PNL), 04/23/2010, 16:57. [facility], MR, MR BRAIN W&WO CON, 01/13/2016, 12:55. FINDINGS: Image quality: Excellent. CSF spaces: Diffuse prominence of the CSF space is noted. Ventricles appear symmetric in shape. Basal cisterns are patent. No extra-axial fluid collections. Brain: No intracranial bleeds or mass effects. There is cerebral volume loss for age. There are severe periventricular and deep white matter chronic small vessel ischemic changes. Brainstem appears normal. Diffusion-weighted images show no acute ischemic insults numerous small lacunar infarcts in noted in the cerebral hemispheres and the left cerebellar hemisphere which is stable compared to prior MRIs. Punctate foci of hypointense susceptibility weighted signal noted in the right frontal lobe, putamen bilaterally, the left temporal lobe, the jayant and the anterior aspect of the medulla. Normal intravascular flow voids are present. Skull and face: Calvarial bone marrow is normal in signal. Orbits are normal. Sinuses: Sinuses and mastoids are clear. IMPRESSION: 1. No acute intracranial disease process. 2. Numerous, chronic, small, lacunar infarcts stable compared to prior MRI examination obtained 01/13/16. Multiple chronic infarcts are suspicious for underlying vasculitis. 3. Severe periventricular and subcortical white matter chronic microvascular ischemic changes. 4. Punctate susceptibility weighted hypointensities in the right frontal lobe bilateral putamen, left temporal lobe, jayant and medulla. Finding is nonspecific but given the distribution suspicious for chronic hypertensive micro-bleeds. Please correlate with clinical data. Dictated by: Yamini Omer MD, PhD on 09/11/2016 at 14:13 Approved by: Yamini Omer MD, PhD on 09/11/2016 at 14:33 PROCEDURE: MRI TEMPOROMANDIBULAR JOINTS ([id number]) INDICATIONS: severe left jaw pain TECHNIQUE: Axial T1 spin echo, coronal and sagittal PD fast spin echo through the temporomandibular joints, in both the closed- and open-mouth positions. COMPARISON: None. FINDINGS: Image quality: Image quality severely limited by patient motion artifact. No temporomandibular joint effusions are identified. No bony erosions or osteophytes. The marrow signal of the osseous structures of the abdomen of the joints is normal. Open closed mouth views are nondiagnostic due to motion artifact. IMPRESSION: 1. No evidence of joint effusion, bony erosion or osteophytosis involving the temporomandibular joints. 2. Functional status of the temporomandibular joints cannot be evaluated due to patient motion artifact. Dictated by: Yamini Omer MD, PhD on 09/11/2016 at 14:34 Approved by: Yamini Omer MD, PhD on 09/11/2016 at 14:37 Assessment & Plan The patient is a 66 y.o. female with a history of Type II DM, MS, CVA, DVT anticoagulated on warfarin, HTN, seizures, chronic decubitus ulcer, trigeminal neuralgia present on admission and ongoing with worsening left facial pain. Patient was admitted to the hospital service for further evaluation and treatment. acute, active #acute on chronic encephalopathy, POA, likely multifactorial: metabolic-tegretol , hypoglycemia, ?vasculitis, baseline CVA, MS. -frequent neurochecks q1h, # Acute on chronic left facial and jaw pain. Present on admission.pt has history of MS and trigeminal neuralgiamost likely -Trigeminal Neuralgia, acute on chronic. initially suspicion was temporal Arteritis based on MRI, but excluded with negative biopsy on 09/12/16. - Jaw pain seems to be resolving, pt did c/o neck pain, unclear onset. -will continue frequent neurochecks. -started Prednisone 60 mg PO QD, stopped today 09/16 - We will continue Gabapentin 300 mg TID, titrate to pain - increased TegretolXR 400 bid 09/15, decrease it to 200 bid given wax and wane MS,discussed with . will titrate up if pain persists, no adverse effect. -will consider baclofen as well if symptoms continue -as per son, percocet worked better for pain, stop oxycodone home dose, will use percocet more, hold when too sedated # Decubitus Ulcers, acute on chronic - Severe decubitus ulcers over sacrum and coccyx as described above, no leukocytosis on CBC, patient is afebrile at admission - We will continue Nursing wound care per wound care consult - Wound care consult obtained and their help appreciated. - Repeat daily labs with CBC and CMP. Will routinely check magnesium as well and replete as necessary. - Try to optimize nutrition as patient states she has been unable to eat for quite some time. I have encouraged her to drink 3 Glucerna daily. - We will also add a multivitamin, vitamin C, vitamin E and zinc - Discussed case with patient's son Lance at length and I have discussed with patient's primary care physician Dr. Mendieta at length. Chronic conditions, resolved # Acute Kidney injury noted on admission on chronic kidney disease Present on admission, wax and wane, seems it's at baseline. # Insulin-dependent type 2 diabetes. held home insulin NPH 35 units BID due to poor by mouth intake. 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 - Continue anticoagulation with warfarin dosed per pharmacy. - Due to malnutrition patient has not required warfarin for the last couple of days. - Also we need to be mindful of Tegretol effecting the patient's warfarin levels. # Multiple sclerosis, presumed stable - We will continue home medication - Continue nursing support with continuing to rotate the patient on her bed # Depression. stable -We will continue home medication # Hyperlipidemia. - We will continue home medication # Allergic rhinitis. -We will continue home medication # Urinary incontinence, with previous suprapubic catheter, - Patient now has a ileal conduit with urostomy. Continue management per wound care team # Hypertension. -We will continue home medication # History of asthma. stable - We will continue Duoneb Q6 PRN # History of MRSA urinary tract infection with recurrent UTIs # Diastolic dysfunction and possible PFO on echo from March 2010. -continue home medication # History of seizures documented at [facility]. -continue home medication # History of hypothyroidism. -continue home medication DVT prophylaxis: Warfarin Disposition: likely tomorrow home with , d/c delayed given her MS. GI Prophylaxis: Proton Pump Inhibitor VTE Prophylaxis: Theraputic Anticoag with Warfarin VTE Mechanical Devices: Intermittant Pneumatic CD Resuscitation Status: CPR: Attempt Resuscitation Time spent 35min Moriah Benitez MD Sep 17, 2016 11:20
[2016-09-17 12:16] VITALS: BP 115/72; PULSE 72; RESP 16; O2SAT 96
[2016-09-17] MEDS: oxyCODONE-Acetamin 10-325 mg Tablet PO PRN (12:23)
--- NOTE | 2016-09-17 17:40 | NUR ---
Pain C/o pain to neck PRN PO medication given as ordered with effective results. Stable vital signs. Blood sugar 125 before lunch and dinner 81. Received PO medication as ordered with out swallowing difficulty. son at bed side. Patient turned and repositioned every 2 hours for comfort. Call light with in reach for safety. 60% breakfast and 25% lunch. Tolerating PO fluids. PRN senna given for constipation with no results so far. Bowel sounds present all four quadrants. stable vital signs.
[2016-09-17 19:55] VITALS: BP 125/71; PULSE 74; RESP 16; O2SAT 99
[2016-09-17] MEDS: PARoxetine 20 mg Tablet PO SCH (21:31)
[2016-09-18 04:11] VITALS: BP 118/72; PULSE 78; RESP 16; O2SAT 95
--- NOTE | 2016-09-18 06:37 | NUR ---
Activity Pt reporting some neck pain and took scheduled Tegretol per eMAR. Pt has not complained of pain for rest of shift. Pt is being turned q2 hrs. Mepilex in place to coccyx. Urostomy patent. BG checked more frequently since BG can tank, At HS BG 169 and at 3am BG 84. Pt was given orange juice and rechecked this morning, BG at 85. Continue close monitoring.
--- NOTE | 2016-09-18 06:52 | PCM.PHAPRO ---
Progress Warfarin Management by Pharmacy: -Indication: history of dvt -Inr Goal: 2-3 -Home Dose: warfarin 2.5 daily -Concurrent Anticoagulation: none -Coagulation Trends: Sep 10-Sep 11-Sep 12-Sep 13-Aug 14-Sep 15-Sep 3-Sep 17-Sep 18-Sep 1.51 1.52 1.91 2.41 3.31 2.78 2.44 2.99 2.92 2.00 #VALUE! 0.01 0.39 0.5 0.9 -0.53 -0.34 0.55 -0.07 -0.92 2.5MG 3.5MG 2.5 MG HOLD HOLD 2MG 2.5mg hold 2MG 3MG Plan: inr therapeutic but has decreased to 2.00 today. will give a one time dose of warfarin 3mg this evening and follow Kimberly Payton [facility] Sep 18, 2016 06:52
[2016-09-18] MEDS: Insulin LISPRO 300 Unit/3 mL Inj SUBQ SCH ×4 (07:09→22:00)
[2016-09-18] MEDS: Pantoprazole 40 mg ER24 Tablet PO SCH (07:20)
[2016-09-18] MEDS: 0.9% Sodium Chloride 1,000 ML IV SCH ×2 (07:35→19:59)
[2016-09-18 08:40] LABS: BASOPHILS % (AUTO) 0.1 % (0-3); EOSINOPHILS % (AUTO) 3.7 % (0-5); MONOCYTES % (AUTO) 8.6 % (4-12); Mean Corpuscular Hemoglobin 28.3 pg (27.0-35.0); Mean Corpuscular Volume 92.6 fL (81-100); NEUTROPHILS % (AUTO) 56.3 % (40-74); Platelet Count 323 bil/L (150-400)
[2016-09-18 09:02] LABS: Magnesium 2.1 mg/dL (1.6-2.6); Phosphorus 3.6 mg/dL (2.5-4.9)
[2016-09-18] MEDS: Multivitamins w/Minerals 5 mL Liquid Supplement PO SCH (09:28)
[2016-09-18] MEDS: Fluticasone 0.05% 15 Spray/2 Gm 16 Gm Nasal Spray NASAL SCH (09:28)
[2016-09-18 09:30] VITALS: BP 117/79; PULSE 79; RESP 16; O2SAT 98
[2016-09-18] MEDS: TIZANIDINE 4 MG PO SCH ×2 (09:30→19:45)
[2016-09-18] MEDS: Ascorbic Acid 500 mg Tablet PO SCH ×2 (09:30→19:47)
[2016-09-18] MEDS: carBAMazepine 200 mg ER12 Tablet PO SCH ×2 (09:31→19:47)
--- NOTE | 2016-09-18 09:57 | PCM.PNMED ---
Subjective Date of Service Sep 18, 2016 Subjective pt is more alert but still seems not at baseline, understood questions, but speaks slowly unable to have meaningful conversation still has significant Left arm weakness, which seems new findings per Son ordered MR MS protocol this AM Exam Vital Signs Vital Sign - Last Date Time Temp Pulse Resp B/P Pulse Ox O2 Delivery O2 Flow Rate FiO2 09/18/16 04:11 36.8 78 16 118/72 95 Room Air 09/12/16 11:45 7 Intake and Output 09/17/16 09/17/16 09/18/16 Cumulative From/Thru 15:00 23:00 07:00 09/08/16 16:06 - 09/18/16 06:17 Intake Total 2520 ml 400 ml 87247 ml Output Total 2000 ml 1550 ml 99394 ml Balance 520 ml -1150 ml -4494 ml Intake Oral 2520 ml 400 ml 50741 ml IV Total 72161 ml Output Urine Total 2000 ml 1550 ml 38759 ml # Bowel Movements 0 2 Exam frail, elderly, laying down on bed, AAOx2, expressive aphasia no JVD, MMM, no LAD RRR, nl s1, s2 no mrg CTAB, no w,c S,ND,NT,normoactive BS+ warm, no edema, pulses 2/2 RUE motor 3/5, LUE 4/5 IVs and Medications Medications Reviewed: Medications were reviewed in detail Lab and Diagnostics Result Diagram: 09/18/16 0810 09/18/16 0810 X-Rays, CTs and MRIs PROCEDURE: CT BRAIN WITHOUT CONTRAST ([id number]) INDICATIONS: jaw/head pain TECHNIQUE: Noncontrast 4.5 mm thick angled axial sections acquired from the foramen magnum to the vertex, with coronal reformats. COMPARISON: [facility], CT, CT BRAIN WO CON, 01/06/2016, 19:05. [facility], MR, MR BRAIN W&WO CON, 01/13/2016, 12:55. FINDINGS: Image quality: Excellent. CSF spaces: Basal cisterns are patent. No extra-axial fluid collections. The ventricles are symmetric in size and shape. Brain: No intracranial bleeds or masses. There is cerebral volume loss for age , with resultant ventricular and sulcal prominence. No change in mild low density within the periventricular and subcortical white matter, consistent with multiple sclerosis sequelae and/or small vessel ischemic disease. There is intracranial internal carotid artery atherosclerosis. Skull and face: Calvarium and visualized facial bones appear intact, without suspicious lesions. Sinuses: Visualized sinuses and mastoids are clear. IMPRESSION: No acute intracranial abnormality. No explanation for jaw/head pain. Dictated by: Margo Horton M.D. on 09/08/2016 at 17:22 Approved by: Margo Horton M.D. on 09/08/2016 at 17:23 PROCEDURE: MRI BRAIN WITHOUT CONTRAST ([id number]) INDICATIONS: severe left jaw pain TECHNIQUE: Non-contrast axial T1 spin echo, axial T2 fast spin echo, sagittal and axial FLAIR, coronal T2 fast spin echo, axial gradient echo, axial diffusion and ADC through the brain. COMPARISON: [facility], CT, CT BRAIN WO CON, 01/06/2016, 19:05. [facility], CT, CT BRAIN WO CON, 09/08/2016, 16:59. [facility], CT, BRAIN W/O CONTRAST, 04/21/2010, 22:31. MR, STROKE PROTOCOL (PNL) , 04/13/2010, 10:35. MR, STROKE PROTOCOL (PNL), 04/23/2010, 16:57. [facility], MR, MR BRAIN W&WO CON, 01/13/2016, 12:55. FINDINGS: Image quality: Excellent. CSF spaces: Diffuse prominence of the CSF space is noted. Ventricles appear symmetric in shape. Basal cisterns are patent. No extra-axial fluid collections. Brain: No intracranial bleeds or mass effects. There is cerebral volume loss for age. There are severe periventricular and deep white matter chronic small vessel ischemic changes. Brainstem appears normal. Diffusion-weighted images show no acute ischemic insults numerous small lacunar infarcts in noted in the cerebral hemispheres and the left cerebellar hemisphere which is stable compared to prior MRIs. Punctate foci of hypointense susceptibility weighted signal noted in the right frontal lobe, putamen bilaterally, the left temporal lobe, the jayant and the anterior aspect of the medulla. Normal intravascular flow voids are present. Skull and face: Calvarial bone marrow is normal in signal. Orbits are normal. Sinuses: Sinuses and mastoids are clear. IMPRESSION: 1. No acute intracranial disease process. 2. Numerous, chronic, small, lacunar infarcts stable compared to prior MRI examination obtained 01/13/16. Multiple chronic infarcts are suspicious for underlying vasculitis. 3. Severe periventricular and subcortical white matter chronic microvascular ischemic changes. 4. Punctate susceptibility weighted hypointensities in the right frontal lobe bilateral putamen, left temporal lobe, jayant and medulla. Finding is nonspecific but given the distribution suspicious for chronic hypertensive micro-bleeds. Please correlate with clinical data. Dictated by: Yamini Omer MD, PhD on 09/11/2016 at 14:13 Approved by: Yamini Omer MD, PhD on 09/11/2016 at 14:33 PROCEDURE: MRI TEMPOROMANDIBULAR JOINTS ([id number]) INDICATIONS: severe left jaw pain TECHNIQUE: Axial T1 spin echo, coronal and sagittal PD fast spin echo through the temporomandibular joints, in both the closed- and open-mouth positions. COMPARISON: None. FINDINGS: Image quality: Image quality severely limited by patient motion artifact. No temporomandibular joint effusions are identified. No bony erosions or osteophytes. The marrow signal of the osseous structures of the abdomen of the joints is normal. Open closed mouth views are nondiagnostic due to motion artifact. IMPRESSION: 1. No evidence of joint effusion, bony erosion or osteophytosis involving the temporomandibular joints. 2. Functional status of the temporomandibular joints cannot be evaluated due to patient motion artifact. Dictated by: Yamini Omer MD, PhD on 09/11/2016 at 14:34 Approved by: Yamini Omer MD, PhD on 09/11/2016 at 14:37 Assessment & Plan The patient is a 66 y.o. female with a history of Type II DM, MS, CVA, DVT anticoagulated on warfarin, HTN, seizures, chronic decubitus ulcer, trigeminal neuralgia present on admission and ongoing with worsening left facial pain. Patient was admitted to the hospital service for further evaluation and treatment. acute, active #acute on chronic encephalopathy, POA, likely multifactorial: metabolic-tegretol , hypoglycemia, ?vasculitis, baseline CVA, MS. -frequent neurochecks q4h -given clear acute changes from her baseline MS, will get MR MS protocol, -will verify again with Son daily basis regarding MS # Acute on chronic left facial and jaw pain. Present on admission.pt has history of MS and trigeminal neuralgiamost likely -Trigeminal Neuralgia, acute on chronic. initially suspicion was temporal Arteritis based on MRI, but excluded with negative biopsy on 09/12/16. - Jaw pain seems to be completely resolved, no neck pain as well. -started Prednisone 60 mg PO QD, stopped today 09/16 - We will continue Gabapentin 300 mg TID, titrate to pain - increased TegretolXR 400 bid 09/15, decrease it to 200 bid given wax and wane MS,discussed with . will continue this dose as it seems working well. -will consider baclofen as well if symptoms continue -as per son, percocet worked better for pain, stopped oxycodone home dose, will use percocet more, hold when too sedated # Decubitus Ulcers, acute on chronic - Severe decubitus ulcers over sacrum and coccyx as described above, no leukocytosis on CBC, patient is afebrile at admission - We will continue Nursing wound care per wound care consult - Wound care consult obtained and their help appreciated. - Repeat daily labs with CBC and CMP. Will routinely check magnesium as well and replete as necessary. - Try to optimize nutrition as patient states she has been unable to eat for quite some time. I have encouraged her to drink 3 Glucerna daily. - We will also add a multivitamin, vitamin C, vitamin E and zinc - discussed case with patient's son Lance at length, PCP Dr. Mendieta at length. Chronic conditions, resolved # Acute Kidney injury noted on admission on chronic kidney disease Present on admission, wax and wane, seems it's at baseline. # Insulin-dependent type 2 diabetes. held home insulin NPH 35 units BID due to poor by mouth intake. 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 - Continue anticoagulation with warfarin dosed per pharmacy. - Due to malnutrition patient has not required warfarin for the last couple of days. - Also we need to be mindful of Tegretol effecting the patient's warfarin levels. # Multiple sclerosis, presumed stable - We will continue home medication - Continue nursing support with continuing to rotate the patient on her bed # Depression. stable -We will continue home medication # Hyperlipidemia. - We will continue home medication # Allergic rhinitis. -We will continue home medication # Urinary incontinence, with previous suprapubic catheter, - Patient now has a ileal conduit with urostomy. Continue management per wound care team # Hypertension. -We will continue home medication # History of asthma. stable - We will continue Duoneb Q6 PRN # History of MRSA urinary tract infection with recurrent UTIs # Diastolic dysfunction and possible PFO on echo from March 2010. -continue home medication # History of seizures documented at [facility]. -continue home medication # History of hypothyroidism. -continue home medication DVT prophylaxis: Warfarin Disposition:pending, will follow up MRI Full code, will have more conversation with son, [facility] diet: dysphagia diet GI Prophylaxis: Proton Pump Inhibitor VTE Prophylaxis: Theraputic Anticoag with Warfarin VTE Mechanical Devices: Intermittant Pneumatic CD Resuscitation Status: CPR: Attempt Resuscitation Time spent 35min Moriah Benitez MD Sep 18, 2016 09:37
--- NOTE | 2016-09-18 10:49 | NUR ---
NUTRITION FOLLOW-UP: ASSESS: 66 yo female admitted for facial/jaw pain (resolved) and severe skin breakdown related to lower extremity paralysis from MS. Pt currently on a dysphagia mechanical diet and eating an avg of 50% of meals over the past 5 days as well as consuming some Glucerna shakes. PMHX: pyelonephritis, multiple CVA's, ureterostomy, HTN, T2DM, ARGENIS with CKD, multiple sclerosis, depression, asthma, seizures, DVT. LABS: Reviewed. BUN 31, Cr 1.20, Glu 110, Alb 3.2. MEDS: Reviewed. Senna, Coumadin. GI: last BM reported x 2 (09/11/16) SKIN: Pt with multiple sacral PU, 1 unstageable and the rest are stage II to stage III per wound care note. CURRENT WTS: 70.8 kg. Admit wt: 69.2 kg. Wt trends: Pt has lost 11% body weight in 15 months, Significant wt loss. DIET: Dysphagia Mechanical and Glucerna supplements all trays. PO bites-100% of meals with po avg. of 50% x 5 days. EST. NEEDS: MS/Wounds Calories: 9109-4065 kcal/day (25-35 kcal/kg BW) Protein: 85-105 g/day (1.2-1.5 g/kg BW) NUTRITION DIAGNOSIS: 1.) Increased nutrient needs related to increased demand for nutrients for healing as evidenced by Stage II and Stage III wounds on sacrum/buttock and significant weight loss of 11%--PERSISTS. 2.) Chewing / swallowing difficulties related to chronic dysphagia as evidenced by current / chronic need for mechanically altered diet texture, ST following--IMPROVING. 3.) Altered GI function related to constipation as evidenced by no reported BM x 1 week. NUTRITION INTERVENTION: 1.) Continue to send Glucerna all trays to encourage adequate po intake for wound healing and weight maintenance. 2.) Continue to advance diet as able per ST recommendations. 3.) Recommend starting consistent bowel regimen. MONITOR / EVAL: PO intake, labs, wounds, nutritional status. Monitor per moderate nutrition risk guidelines.
[2016-09-18] MEDS: Nystatin 100,000 Unit/Gm 15 Gm Powder TOPICAL SCH ×2 (12:09→19:55)
--- NOTE | 2016-09-18 12:16 | NUR ---
Pt off unit Pt to MRI at 1215 hrs. Addendum: 09/18/16 at 1323 by NISSA BARNHART RN Pt returned to [facility] at 1300 after her MRI.
--- NOTE | 2016-09-18 13:23 | NUR ---
Activity / Motor function Noted this a.m. that pt's speech was more slurred and it was hard to understand her. She also said she was unable to move her left arm when asked to do so. Pt's son, Kyrie, is here visiting now, and pt is speaking clearly and moving both arms as I observed her doing a days ago. Will continue to monitor pt's speech and her ability to move her arms.
--- NOTE | 2016-09-18 14:22 | DRSVH ---
PROCEDURE: MRI BRAIN WITH AND WITHOUT CONTRAST ([id number]) INDICATIONS: worsening mental status dysarthria TECHNIQUE: Noncontrast axial T1 spin echo, axial T2 fast spin echo, sagittal and axial FLAIR, coronal T2 fast sp in echo, axial gradient echo, axial diffusion and ADC through the brain. After the administration of contrast, axial and coronal T1 spin echo with fat saturation through the brain. COMPARISON: [facility], CT, BRAIN W/O CONTRAST, 04/21/2010, 22:31. [facility] al, MR, STROKE PROTOCOL (PNL), 04/13/2010, 10:35. [facility], CT, CT BRAIN WO CON, 2016, 16:59. [facility], MR, MR BRAIN W&WO CON, 01/13/2016, 12:55. [facility], MR, BRAIN W/O CONTRAST, 09/23/2013, 14:10. [facility], MR, STROKE PROTOCOL (PNL), 01/2010, 16:57. [facility], MR, MR BRAIN WO CON, 09/11/2016, 12:43. FINDINGS: Image quality: Significant motion artifacts in multiple sequences. CSF spaces: Basal cisterns are patent. No extra-axial fluid collections. Ventricles are normal in size and shape. Brain: Again noted are multiple foci of subcortical and periventricular white matter lacunar infarct s. No mass effect or midline shift. No intracranial bleeds or masses. No abnormal intracranial enha ncement. There is moderate cerebral volume loss for age. There is severe periventricular white nadeen er chronic small vessel ischemic change. Chronic white matter ischemic changes are also seen in mid b rain jayant. Diffusion-weighted images demonstrate no acute ischemic insults. Again noted are foci of susceptibility artifacts on gradient echo images. Normal intravascular flow voids are present. Skull and face: Calvarial marrow is normal in signal. Orbits appear normal. Sinuses: Sinuses and mastoids appear clear. IMPRESSION: 1. No acute intracranial abnormalities. 2. Multiple foci of old lacunar infarcts again noted as seen on prior examinations. 3. Multiple foci of susceptibility artifacts consistent with chronic micro-hemorrhage or amyloid emy opathy. 4. Moderate cerebral volume loss. 5. Severe chronic microvascular ischemic changes in periventricular white matter, midbrain and jayant. Dictated by: Nadya Cruz M.D. on 09/18/2016 at 14:10 Approved by: Nadya Cruz M.D. on 09/18/2016 at 14:21
[2016-09-18 15:20] VITALS: BP 121/77; PULSE 75; RESP 16; O2SAT 96
[2016-09-18] MEDS: Mupirocin 2% 22 Gm Ointment TOPICAL SCH ×2 (15:30→19:54)
--- NOTE | 2016-09-18 16:09 | NUR ---
Social Work-readiness for discharge: Data:EMR reviewed. Pt is on day 10 of hospitalization for facial pain and severe skin breakdown. Pt is not medically stable for discharge at this time. GAVIOTA updated that [facility] is out for services until at least September 23. GAVIOTA followed up with son Lance via phone and explained that [facility] is out fro services. Son agreeable to referral to [facility] for RN needs. GAVIOTA provided access in [place] and provided referral to [facility] for RN. GAVIOTA left message for pt's [facility] and faxed h&P. F2F in folder. SW will continue to follow. Assessment:Pt who would benefit from . Plan:Pt to discharge home when medically stable, son is caregiver through [facility]. [facility]IOTA made referral to [facility] for [facility], access given. F2F in folder. GAVIOTA will continue to follow. CANDELARIO Curtis
[2016-09-18] MEDS: oxyCODONE-Acetamin 10-325 mg Tablet PO PRN (19:20)
[2016-09-18 19:53] VITALS: BP 142/81; PULSE 82; RESP 16; O2SAT 99
[2016-09-18] MEDS: PARoxetine 20 mg Tablet PO SCH (19:53)
[2016-09-19 04:12] VITALS: BP 129/73; PULSE 80; RESP 16; O2SAT 97
[2016-09-19 06:24] LABS: Magnesium 2.3 mg/dL (1.6-2.6)
[2016-09-19 06:27] LABS: INR 1.85 ratio
[2016-09-19] MEDS: Pantoprazole 40 mg ER24 Tablet PO SCH (07:30)
[2016-09-19] MEDS ORDERED: Insulin GLARgine 100 Unit/mL Syringe SUBQ ONE (07:35)
[2016-09-19 07:55] VITALS: PULSE 80; RESP 16; O2SAT 98
[2016-09-19] MEDS: Insulin LISPRO 300 Unit/3 mL Inj SUBQ SCH ×4 (08:00→22:31)
--- NOTE | 2016-09-19 08:16 | NUR ---
mentation / activity; alert and interactive at 1930 last evening. speech clear and taking PO pills without difficulty. After evening meds patient slept several hours and after she awoke her speech was slurred and unable to communicate clearly. Blood glucose; 183 VSS pupils equal and reactive. Decreased movement of left arm. Repositioned and patient more alert and moving left arm freely. 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
[2016-09-19] MEDS: Ascorbic Acid 500 mg Tablet PO SCH ×2 (08:30→20:59)
[2016-09-19] MEDS: Mupirocin 2% 22 Gm Ointment TOPICAL SCH ×2 (08:30→20:30)
[2016-09-19] MEDS: 0.9% Sodium Chloride 1,000 ML IV SCH ×2 (08:35→21:05)
--- NOTE | 2016-09-19 09:15 | PCM.PHAPRO ---
Progress Warfarin Management by Pharmacy: -Indication: history of dvt -Inr Goal: 2-3 -Home Dose: warfarin 2.5 daily -Concurrent Anticoagulation: none -Coagulation Trends: Sep 09-Sep 10-Sep 11-Sep 12-Sep 13-Aug 14-Sep 2-Sep 3-Sep 17-Sep 18-Sep 6-Sep NA 1.51 1.52 1.91 2.41 3.31 2.78 2.44 2.99 2.92 2.00 1.85 #VALUE! 0.01 0.39 0.5 0.9 -0.53 -0.34 0.55 -0.07 -0.92 -0.15 UNK 2.5MG 3.5MG 2.5 MG HOLD HOLD 2MG 2.5mg hold 2MG 3MG 3mg -Plan: will continue with warfarin 3mg this evening. inr has dropped to 1.85 ( due to constipation? not eating 100%?). hesitant to increase too much due to values exhibited at the end of August (see above) Kimberly Payton [facility] Sep 19, 2016 09:15
--- NOTE | 2016-09-19 11:00 | PCM.PNMED ---
Subjective Date of Service Sep 19, 2016 Subjective patient was able to express her complaints but still very drowsy, know her name and place mumbles intermittently, per son this is very acute changes MRI w w/o con showed no acute changes but extensive changes already still very weak on left side, has chronic flaccid LE Exam Vital Signs Vital Sign - Last Date Time Temp Pulse Resp B/P Pulse Ox O2 Delivery O2 Flow Rate FiO2 09/19/16 07:55 80 16 98 Room Air 09/19/16 04:12 36.4 129/73 Intake and Output 09/18/16 09/18/16 09/19/16 Cumulative From/Thru 15:00 23:00 07:00 09/08/16 16:06 - 09/19/16 05:52 Intake Total 737 ml 240 ml 06630 ml Output Total 1600 ml 750 ml 38702 ml Balance -863 ml -510 ml -5867 ml Intake Oral 737 ml 240 ml 40352 ml IV Total 78851 ml Output Urine Total 1600 ml 750 ml 61824 ml # Bowel Movements 1 0 3 Exam Frail, elderly, laying down on bed, AAOx2, expressive aphasia no JVD, MMM, no LAD RRR, nl s1, s2 no mrg CTAB, no w,c S,ND,NT,normoactive BS+ warm, no edema, pulses 2/2 RUE motor 3/5, LUE 4/5 IVs and Medications Medications Reviewed: Medications were reviewed in detail Lab and Diagnostics Result Diagram: 09/18/16 0810 09/19/16 0543 X-Rays, CTs and MRIs PROCEDURE: CT BRAIN WITHOUT CONTRAST ([id number]) INDICATIONS: jaw/head pain TECHNIQUE: Noncontrast 4.5 mm thick angled axial sections acquired from the foramen magnum to the vertex, with coronal reformats. COMPARISON: [facility], CT, CT BRAIN WO CON, 01/06/2016, 19:05. [facility], MR, MR BRAIN W&WO CON, 01/13/2016, 12:55. FINDINGS: Image quality: Excellent. CSF spaces: Basal cisterns are patent. No extra-axial fluid collections. The ventricles are symmetric in size and shape. Brain: No intracranial bleeds or masses. There is cerebral volume loss for age , with resultant ventricular and sulcal prominence. No change in mild low density within the periventricular and subcortical white matter, consistent with multiple sclerosis sequelae and/or small vessel ischemic disease. There is intracranial internal carotid artery atherosclerosis. Skull and face: Calvarium and visualized facial bones appear intact, without suspicious lesions. Sinuses: Visualized sinuses and mastoids are clear. IMPRESSION: No acute intracranial abnormality. No explanation for jaw/head pain. Dictated by: Margo Horton M.D. on 09/08/2016 at 17:22 Approved by: Margo Horton M.D. on 09/08/2016 at 17:23 PROCEDURE: MRI BRAIN WITHOUT CONTRAST ([id number]) INDICATIONS: severe left jaw pain TECHNIQUE: Non-contrast axial T1 spin echo, axial T2 fast spin echo, sagittal and axial FLAIR, coronal T2 fast spin echo, axial gradient echo, axial diffusion and ADC through the brain. COMPARISON: [facility], CT, CT BRAIN WO CON, 01/06/2016, 19:05. [facility], CT, CT BRAIN WO CON, 09/08/2016, 16:59. [facility], CT, BRAIN W/O CONTRAST, 04/21/2010, 22:31. MR, STROKE PROTOCOL (PNL) , 04/13/2010, 10:35. MR, STROKE PROTOCOL (PNL), 04/23/2010, 16:57. [facility], MR, MR BRAIN W&WO CON, 01/13/2016, 12:55. FINDINGS: Image quality: Excellent. CSF spaces: Diffuse prominence of the CSF space is noted. Ventricles appear symmetric in shape. Basal cisterns are patent. No extra-axial fluid collections. Brain: No intracranial bleeds or mass effects. There is cerebral volume loss for age. There are severe periventricular and deep white matter chronic small vessel ischemic changes. Brainstem appears normal. Diffusion-weighted images show no acute ischemic insults numerous small lacunar infarcts in noted in the cerebral hemispheres and the left cerebellar hemisphere which is stable compared to prior MRIs. Punctate foci of hypointense susceptibility weighted signal noted in the right frontal lobe, putamen bilaterally, the left temporal lobe, the jayant and the anterior aspect of the medulla. Normal intravascular flow voids are present. Skull and face: Calvarial bone marrow is normal in signal. Orbits are normal. Sinuses: Sinuses and mastoids are clear. IMPRESSION: 1. No acute intracranial disease process. 2. Numerous, chronic, small, lacunar infarcts stable compared to prior MRI examination obtained 01/13/16. Multiple chronic infarcts are suspicious for underlying vasculitis. 3. Severe periventricular and subcortical white matter chronic microvascular ischemic changes. 4. Punctate susceptibility weighted hypointensities in the right frontal lobe bilateral putamen, left temporal lobe, jayant and medulla. Finding is nonspecific but given the distribution suspicious for chronic hypertensive micro-bleeds. Please correlate with clinical data. Dictated by: Yamini Omer MD, PhD on 09/11/2016 at 14:13 Approved by: Yamini Omer MD, PhD on 09/11/2016 at 14:33 PROCEDURE: MRI TEMPOROMANDIBULAR JOINTS ([id number]) INDICATIONS: severe left jaw pain TECHNIQUE: Axial T1 spin echo, coronal and sagittal PD fast spin echo through the temporomandibular joints, in both the closed- and open-mouth positions. COMPARISON: None. FINDINGS: Image quality: Image quality severely limited by patient motion artifact. No temporomandibular joint effusions are identified. No bony erosions or osteophytes. The marrow signal of the osseous structures of the abdomen of the joints is normal. Open closed mouth views are nondiagnostic due to motion artifact. IMPRESSION: 1. No evidence of joint effusion, bony erosion or osteophytosis involving the temporomandibular joints. 2. Functional status of the temporomandibular joints cannot be evaluated due to patient motion artifact. Dictated by: Yamini Omer MD, PhD on 09/11/2016 at 14:34 Approved by: Yamini Omer MD, PhD on 09/11/2016 at 14:37 Assessment & Plan The patient is a 66 y.o. female with a history of Type II DM, MS, CVA, DVT anticoagulated on warfarin, HTN, seizures, chronic decubitus ulcer, trigeminal neuralgia present on admission and ongoing with worsening left facial pain. Patient was admitted to the hospital service for further evaluation and treatment. acute, active #Acute on chronic encephalopathy, POA, likely multifactorial: metabolic-tegretol , flexeril, high-dose steroid, episode hypoglycemia, ?vasculitis with baseline CVA, MS. given clear acute changes from her baseline MS, MR MS protocol obtained which showed no acute changes but extensive chronic ischemic changes throughout which could explain her condition. -will hold off all of [employer] meds: gabapentin, tegretol, flexeril, wouldn't resume Tazinidine. -will speak to , -frequent neurochecks q4h, will observe 1-2more days to make sure this is medicine induced. -hold percocet as well, continue tylenol. # Acute on chronic left facial and jaw pain. Present on admission.pt has history of MS and trigeminal neuralgiamost likely -Trigeminal Neuralgia, acute on chronic. initially suspicion was temporal Arteritis based on MRI, but excluded with negative biopsy on 09/12/16. - Jaw pain seems to be completely resolved, no neck pain as well. -started Prednisone 60 mg PO QD, stopped 09/16 - s/p Gabapentin 300 mg TID, stopped as above -started with TegretolXR 400 bid 09/15, decrease it to 200 bid given wax and wane MS,discussed with . stopped it as above -will consider baclofen as well if symptoms continue # Decubitus Ulcers, acute on chronic - Severe decubitus ulcers over sacrum and coccyx as described above, no leukocytosis on CBC, patient is afebrile at admission - We will continue Nursing wound care per wound care consult - Wound care consult obtained and their help appreciated. - Repeat daily labs with CBC and CMP. Will routinely check magnesium as well and replete as necessary. - Try to optimize nutrition as patient states she has been unable to eat for quite some time. I have encouraged her to drink 3 Glucerna daily. - We will also add a multivitamin, vitamin C, vitamin E and zinc - discussed case with patient's son Lance at length, PCP Dr. Mendieta at length. # Insulin-dependent type 2 diabetes. held home insulin NPH 35 units BID due to poor by mouth intake. then started NPH 20 units SQ BID, titrated up to home dose , pt became hypoglycemic with still not optimal oral intake, -stopped long acting insulin 09/17, target !40-180s in fasting, will give 10unit of lantus this AM fsg 150s this AM. -continue Low correctional insulin scale Chronic conditions, resolved # Acute Kidney injury noted on admission on chronic kidney disease Present on admission, wax and wane, seems it's at baseline. 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 - Continue anticoagulation with warfarin dosed per pharmacy. - Due to malnutrition patient has not required warfarin for the last couple of days. - Also we need to be mindful of Tegretol effecting the patient's warfarin levels. # Multiple sclerosis, presumed stable - We will continue home medication - Continue nursing support with continuing to rotate the patient on her bed # Depression. stable -We will continue home medication # Hyperlipidemia. - We will continue home medication # Allergic rhinitis. -We will continue home medication # Urinary incontinence, with previous suprapubic catheter, - Patient now has a ileal conduit with urostomy. Continue management per wound care team # Hypertension. -We will continue home medication # History of asthma. stable - We will continue Duoneb Q6 PRN # History of MRSA urinary tract infection with recurrent UTIs # Diastolic dysfunction and possible PFO on echo from March 2010. -continue home medication # History of seizures documented at [facility]. -continue home medication # History of hypothyroidism. -continue home medication DVT prophylaxis: Warfarin Disposition:pending likely in 1-2more days Full code, will have more conversation with son, GOC, son is not ready to initiate conversation with palliative care diet: dysphagia diet GI Prophylaxis: Proton Pump Inhibitor VTE Prophylaxis: Theraputic Anticoag with Warfarin VTE Mechanical Devices: Intermittant Pneumatic CD Resuscitation Status: CPR: Attempt Resuscitation Time spent 35min Moriah Benitez MD Sep 19, 2016 10:43
[2016-09-19] MEDS: TIZANIDINE 4 MG PO SCH ×2 (11:29→20:58)
[2016-09-19] MEDS: Fluticasone 0.05% 15 Spray/2 Gm 16 Gm Nasal Spray NASAL SCH (11:39)
[2016-09-19] MEDS: Multivitamins w/Minerals 5 mL Liquid Supplement PO SCH (11:39)
--- NOTE | 2016-09-19 12:33 | NUR ---
Palliative care note D/A: Palliative care referral kindly received today from Dr. Benitez. Discussion in discharge rounds today reveals that pt is less alert and continues to not use her arm, as found in nursing notes. (Previously, pt had functional use of this arm.) Dr. Benitez wonders if patient might wish to consider Hospice. Case discussed with Dr. Neri. Dr. Benitez later calls to cancel PC referral and notes that he has discussed above with son who notes that pt/family wish to continue current level of care. Note that this worker, earlier in the week when discharge was being considered, had discussed recommendation with FLATCAR WHACKER that pt be set up with follow up appt with neurology. Please note that she has been seen in consult here by Dr. Small but that she normally sees Dr. Curran. P: Palliative care consult cancelled. Eden VASQUEZ, [facility]
[2016-09-19] MEDS: Nystatin 100,000 Unit/Gm 15 Gm Powder TOPICAL SCH ×2 (12:49→20:59)
[2016-09-19 15:45] VITALS: BP 100/68; PULSE 73; RESP 16; O2SAT 98
[2016-09-19 17:55] LABS: APPEARANCE,URINE CLOUDY (CLEAR,HAZY); COLOR,URINE STRAW (YELLOW); PH,URINE 6.5 (5.0-8.0)
[2016-09-19 17:56] LABS: OCCULT BLOOD,URINE TRACE (NEGATIVE); UROBILINOGEN,URINE NORMAL (NORMAL)
--- NOTE | 2016-09-19 19:39 | NUR ---
Mentation Dr. Benitez cancelled multiple [employer]CHNICIAN medications this morning d/t pt non-responsiveness and decreased LOC overnight. Pt perked up when son arrived at 1100 and became more lucid: she was alert and oriented x2 with some confusion on time. Throughout the day she gained more clarity and was able to communicate her needs and answer questions appropriately. Pt ate a large portion of her dinner, took pills crushed in pudding and cooperated with turns assisting when possible. She continues to c/o L jaw pain and some weakness in her LUE. MD aware and further follow up is planned with the neurologist.
[2016-09-19 19:43] VITALS: BP 154/84; PULSE 76; RESP 16; O2SAT 99
--- NOTE | 2016-09-20 01:53 | PROG NOTE ---
[address] [address] PROGRESS NOTE PATIENT: LANNY PIRES : 1950 MR#: [id number] ADMIT: 09/08/2016 JOB ID: [id number] DATE: 09/19/2016 SUBJECTIVE: I received a call earlier today from Dr. Benitez that the patient had developed altered mental status. Evaluation was performed, so far unrevealing for any etiology of possible toxic metabolic encephalopathy. The patient now appears back to baseline. She reports that her pain has resolved. She reports significant improvement with the present regimen. PHYSICAL EXAMINATION: Vital signs: Temperature 36.4, pulse of 76, respiratory rate of 16, blood pressure 154/84, pulse oximetry 99% on room air. General: She is a well-developed, well-nourished woman in no acute distress. Head: Normocephalic, atraumatic. Neck is supple. No carotid bruits were auscultated bilaterally. Negative Kernig. Negative Brudzinski. Chest: Clear to auscultation. Heart: Regular rate and rhythm. Abdomen: Soft, nondistended, nontender. Extremities: No cyanosis, clubbing, or edema. NEUROLOGIC EXAMINATION: Mental status: She is awake, alert, oriented x3. She was confused as to the exact date and the day of the week, however, knew the place, person and time, including the year. Speech is very mildly dysarthric, however, fluent and with intact comprehension. There was no aphasia noted. Very mild degree of dysarthria noted. She reports that at baseline she does have mild dysarthria and due to auditory sensation impairment she does read lips. Face appears symmetrical. Facial sensation was intact to light touch and temperature. Auditory sensation was intact to finger rub, however, not to voice. I did have to raise my voice and look directly at her so that she could read my lips. Palatal elevation was symmetrical with normal palatal elevation. Tongue was midline. Sternocleidomastoid and trapezii are 5/5 bilaterally. Visual rivas were full to confrontation. Extraocular movements were smooth and conjugate with no evidence of nystagmus. Pupils were equal, round, reactive to light. Motor: Increased tone of the right upper extremity. Unable to lift her right upper extremity above her head. Mild degree of increased tone in left upper extremity, increased tone in the bilateral lower extremities. Deep tendon reflexes diminished throughout. Positive Babinski bilaterally. Sensation diminished to light touch, temperature and vibration in the bilateral distal lower extremities. Coordination: She was able that touch her nose with both upper extremities. I did not appreciate any dysmetria or ataxia. Her [id number] was proportionate to the degree of weakness in her bilateral upper extremities. Gait was deferred. I did review her imaging studies, including a recent magnetic resonance imaging study of her brain which was performed with and without contrast, and demonstrated no acute intracranial abnormalities. Multiple foci of old lacunar infarcts noted which appear stable. Multiple foci of susceptibility artifact consistent with chronic microhemorrhage for amyloid angiopathy. Moderate cerebral volume loss and severe chronic microvascular ischemic changes in the periventricular white matter, midbrain and jayant. These appear to be stable. I did review her laboratory studies, including a WBC of 8.7, hemoglobin 11.1, hematocrit 36.3, platelets of 323. Sodium 138, potassium 5.2 which appeared mildly elevated, chloride 103, bicarb 21, BUN 33, creatinine 1.40, glucose of 153. LFTs were within normal limits. Coags: PT was 20.0 and INR was 1.85. Carbamazepine level was 7.7. Urine color straw and cloudy, trace urine protein, trace occult blood, positive for nitrite, large leukocyte esterase, 0-2 RBCs, 6-10 WBCs, occasional urine epithelial cells and few bacteria. Urine culture is presently pending. Her mental status appears to have significantly improved from what I was told that the mental status was this morning. IMPRESSION: 1. Trigeminal neuralgia. 2. I suspect that she may have had an episode of encephalopathy likely secondary to medication effect. I do recommend that she follow up with her primary care provider and I do recommend that she follow up at some point in the Neurology Clinic. Please feel free to contact me with any questions or concerns. Thank you Dr. Benitez, for allowing me to participate in the care of your patient. Please feel free to contact me with any questions or concerns. ARIEL
[2016-09-20 04:50] VITALS: BP 176/96; PULSE 80; RESP 16; O2SAT 98
--- NOTE | 2016-09-20 05:54 | NUR ---
mentation pt has been alert and oriented x3 this shift. she has had some anxiety. asking to have her son come and take her home. Son has talked to her on the phone and came to visit pt, this calmed pt down considerable. pt has on and off this shift complained of hearing these that were not there such as construction workers sawing in her room and also states that she has seen spiders crawling under her door and on her blankets. at times she is aware that she is confused and other times she becomes angry at staff when they try and orient her and tell her there are no bugs or construction workers. MD is aware of pts complaints. she has had very little pain in her face. she states that she does not need any medication for it. care continues.
[2016-09-20 06:14] LABS: INR 1.67 ratio
[2016-09-20] MEDS: Pantoprazole 40 mg ER24 Tablet PO SCH (07:30)
[2016-09-20] MEDS: Multivitamins w/Minerals 5 mL Liquid Supplement PO SCH (08:30)
[2016-09-20] MEDS: Fluticasone 0.05% 15 Spray/2 Gm 16 Gm Nasal Spray NASAL SCH (09:17)
[2016-09-20] MEDS: TIZANIDINE 4 MG PO SCH (09:18)
[2016-09-20] MEDS: Ascorbic Acid 500 mg Tablet PO SCH (09:20)
[2016-09-20] MEDS: Insulin LISPRO 300 Unit/3 mL Inj SUBQ SCH ×2 (09:25→12:11)
--- NOTE | 2016-09-20 09:28 | PCM.DIMED ---
Discharge Instructions Date of Service Sep 20, 2016 Dates of Hospitalization Sep 08, 2016 at 21:44 Discharge Diagnosis Discharge Diagnosis Trigeminal Neuralgia acute metabolic encephalopathy due to medicines Medication Instructions Please continue all of the home medicine. Please note that NPH dose was decreased to 20unit twice a day as patient had low sugar from decreased oral intake. If patient continue to eat well, sugar runs high, please increase NPH accordingly. Diet No restrictions Activity No restrictions Patient Instructions You were hospitalized with severe jaw pain, which thought be from trigeminal neuralgia, nerve disease in your face nerve. You also had episode of confusion, changes of mental status likely induced by new medicine. Your symptoms were well managed with trial of medicine, your mental status returned back to normal. Please note that if you develop severe jaw pain again then, needs to follow up with or sooner that expected. Follow-up plan Please follow up with your doctor in 2weeks Follow-up Provider: Matilda Mendieta MD Follow-up with PCP in: 2 weeks Provider: Juancarlos Small MD Follow-up in: 3 weeks Moriah Benitez MD Sep 20, 2016 09:28
[2016-09-20] MEDS: 0.9% Sodium Chloride 1,000 ML IV SCH (09:35)
[2016-09-20] MEDS: Mupirocin 2% 22 Gm Ointment TOPICAL SCH (12:10)
[2016-09-20] MEDS: Nystatin 100,000 Unit/Gm 15 Gm Powder TOPICAL SCH (12:10)
[2016-09-20] MEDS ORDERED: HUM100IN3 SUBQ (12:33)
--- NOTE | 2016-09-20 12:43 | PCM.DC.MED ---
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 # Hyperlipidemia. # Allergic rhinitis. # Urinary incontinence, with previous suprapubic catheter, ileal conduit with urostomy. # Hypertension # History of asthma. # History of MRSA urinary tract infection with recurrent UTIs, # Diastolic dysfunction and possible PFO on echo from March 2010 # History of seizures documented at [facility]. # History of hypothyroidism Consultations Neurology, Procedures XRay, CTs & MRIs PROCEDURE: CT BRAIN WITHOUT CONTRAST ([id number]) INDICATIONS: jaw/head pain TECHNIQUE: Noncontrast 4.5 mm thick angled axial sections acquired from the foramen magnum to the vertex, with coronal reformats. COMPARISON: [facility], CT, CT BRAIN WO CON, 01/06/2016, 19:05. [facility], MR, MR BRAIN W&WO CON, 01/13/2016, 12:55. FINDINGS: Image quality: Excellent. CSF spaces: Basal cisterns are patent. No extra-axial fluid collections. The ventricles are symmetric in size and shape. Brain: No intracranial bleeds or masses. There is cerebral volume loss for age , with resultant ventricular and sulcal prominence. No change in mild low density within the periventricular and subcortical white matter, consistent with multiple sclerosis sequelae and/or small vessel ischemic disease. There is intracranial internal carotid artery atherosclerosis. Skull and face: Calvarium and visualized facial bones appear intact, without suspicious lesions. Sinuses: Visualized sinuses and mastoids are clear. IMPRESSION: No acute intracranial abnormality. No explanation for jaw/head pain. Dictated by: Margo Horton M.D. on 09/08/2016 at 17:22 Approved by: Margo Horton M.D. on 09/08/2016 at 17:23 PROCEDURE: MRI BRAIN WITHOUT CONTRAST ([id number]) INDICATIONS: severe left jaw pain TECHNIQUE: Non-contrast axial T1 spin echo, axial T2 fast spin echo, sagittal and axial FLAIR, coronal T2 fast spin echo, axial gradient echo, axial diffusion and ADC through the brain. COMPARISON: [facility], CT, CT BRAIN WO CON, 01/06/2016, 19:05. [facility], CT, CT BRAIN WO CON, 09/08/2016, 16:59. [facility], CT, BRAIN W/O CONTRAST, 04/21/2010, 22:31. MR, STROKE PROTOCOL (PNL) , 04/13/2010, 10:35. MR, STROKE PROTOCOL (PNL), 04/23/2010, 16:57. [facility], MR, MR BRAIN W&WO CON, 01/13/2016, 12:55. FINDINGS: Image quality: Excellent. CSF spaces: Diffuse prominence of the CSF space is noted. Ventricles appear symmetric in shape. Basal cisterns are patent. No extra-axial fluid collections. Brain: No intracranial bleeds or mass effects. There is cerebral volume loss for age. There are severe periventricular and deep white matter chronic small vessel ischemic changes. Brainstem appears normal. Diffusion-weighted images show no acute ischemic insults numerous small lacunar infarcts in noted in the cerebral hemispheres and the left cerebellar hemisphere which is stable compared to prior MRIs. Punctate foci of hypointense susceptibility weighted signal noted in the right frontal lobe, putamen bilaterally, the left temporal lobe, the jayant and the anterior aspect of the medulla. Normal intravascular flow voids are present. Skull and face: Calvarial bone marrow is normal in signal. Orbits are normal. Sinuses: Sinuses and mastoids are clear. IMPRESSION: 1. No acute intracranial disease process. 2. Numerous, chronic, small, lacunar infarcts stable compared to prior MRI examination obtained 01/13/16. Multiple chronic infarcts are suspicious for underlying vasculitis. 3. Severe periventricular and subcortical white matter chronic microvascular ischemic changes. 4. Punctate susceptibility weighted hypointensities in the right frontal lobe bilateral putamen, left temporal lobe, jayant and medulla. Finding is nonspecific but given the distribution suspicious for chronic hypertensive micro-bleeds. Please correlate with clinical data. Dictated by: Yamini Omer MD, PhD on 09/11/2016 at 14:13 Approved by: Yamini Omer MD, PhD on 09/11/2016 at 14:33 PROCEDURE: MRI TEMPOROMANDIBULAR JOINTS ([id number]) INDICATIONS: severe left jaw pain TECHNIQUE: Axial T1 spin echo, coronal and sagittal PD fast spin echo through the temporomandibular joints, in both the closed- and open-mouth positions. COMPARISON: None. FINDINGS: Image quality: Image quality severely limited by patient motion artifact. No temporomandibular joint effusions are identified. No bony erosions or osteophytes. The marrow signal of the osseous structures of the abdomen of the joints is normal. Open closed mouth views are nondiagnostic due to motion artifact. IMPRESSION: 1. No evidence of joint effusion, bony erosion or osteophytosis involving the temporomandibular joints. 2. Functional status of the temporomandibular joints cannot be evaluated due to patient motion artifact. Dictated by: Yamini Omer MD, PhD on 09/11/2016 at 14:34 Approved by: Yamini Omer MD, PhD on 09/11/2016 at 14:37 PROCEDURE: MRI BRAIN WITH AND WITHOUT CONTRAST ([id number]) INDICATIONS: worsening mental status dysarthria TECHNIQUE: Noncontrast axial T1 spin echo, axial T2 fast spin echo, sagittal and axial FLAIR, coronal T2 fast spin echo, axial gradient echo, axial diffusion and ADC through the brain. After the administration of contrast, axial and coronal T1 spin echo with fat saturation through the brain. COMPARISON: [facility], CT, BRAIN W/O CONTRAST, 04/21/2010, 22:31. [facility], MR, STROKE PROTOCOL (PNL), 04/13/2010, 10:35. [facility], CT, CT BRAIN WO CON, 09/08/2016, 16:59. [facility] , MR, MR BRAIN W&WO CON, 01/13/2016, 12:55. [facility], MR, BRAIN W/ O CONTRAST, 09/23/2013, 14:10. [facility], MR, STROKE PROTOCOL (PNL) , 04/23/2010, 16:57. [facility], MR, MR BRAIN WO CON, 09/11/2016, 12 :43. FINDINGS: Image quality: Significant motion artifacts in multiple sequences. CSF spaces: Basal cisterns are patent. No extra-axial fluid collections. Ventricles are normal in size and shape. Brain: Again noted are multiple foci of subcortical and periventricular white matter lacunar infarcts. No mass effect or midline shift. No intracranial bleeds or masses. No abnormal intracranial enhancement. There is moderate cerebral volume loss for age. There is severe periventricular white matter chronic small vessel ischemic change. Chronic white matter ischemic changes are also seen in mid brain jayant. Diffusion-weighted images demonstrate no acute ischemic insults. Again noted are foci of susceptibility artifacts on gradient echo images. Normal intravascular flow voids are present. Skull and face: Calvarial marrow is normal in signal. Orbits appear normal. Sinuses: Sinuses and mastoids appear clear. IMPRESSION: 1. No acute intracranial abnormalities. 2. Multiple foci of old lacunar infarcts again noted as seen on prior examinations. 3. Multiple foci of susceptibility artifacts consistent with chronic micro- hemorrhage or amyloid angiopathy. 4. Moderate cerebral volume loss. 5. Severe chronic microvascular ischemic changes in periventricular white matter , midbrain and jayant. Dictated by: Nadya Cruz M.D. on 09/18/2016 at 14:10 Approved by: Nadya Cruz M.D. on 09/18/2016 at 14:21 Brief History HPI was obtained by on 09/08 Patient is a 66 y.o. F with a history of DM Type II, MS, CVA, DVT anticoagulated on warfarin, HTN, seizures, chronic decubitis ulcer, trigeminal neuraliga. She presented to the ED via EMS with jaw and gum pain that dramatically worsened over the past three days an is at its worst today. Patient stated that this pain has been ongoing for past few months intermittantly but has never been this bad before. She described the pain as severe stabbing/striking pain, rated 10/10 starting at her left TMJ and radiating across the left side of her face and head. Patient noted that she has swollen guns, reduced ROM of jaw, increased pain with touching of left face, chewing, and cold. Patient stated the prednisone and gabapentin have helped to reduce the pain, and oxycodone did not help. Additionally, patient noted several ulcers on her buttox that have begun to bleed and dysuria. Patient denies chest pain, chest pressure, change or loss in vision, fever, chills, shortness of breath. She noted that due to MS she is paralyzed from waist down. Histoy is limited due to chronic dysartheria from MS. PCP Dora Mendieta MD Neurologist Dr. Candace Curran Hospital Course The patient is a 66 y.o. female with a history of Type II DM, MS, CVA, DVT anticoagulated on warfarin, HTN, seizures, chronic decubitus ulcer, trigeminal neuralgia present on admission and ongoing with worsening left facial pain. Patient was admitted to the hospital service for further evaluation and treatment. acute # Acute on chronic left facial and jaw pain. Present on admission.Due to history of MS, initial suspicion was temporal Arteritis based on MRI showing possible vasculitis, didn't show acute enhancement suggestive of MS flare.Patient was on put on prednisone 60mg for 3-4days. Patient underwent temporal artery biopsy on 09/12/16, result was negative for arteritis.Therefore, steroid was stopped without taper. Patient also was started on Gabapentin 300 mg TID, TegretolXR 200mg bid which was briefly increased to 400mg bid due to persistent pain, Flexeril 5mg qhs. However, given acute worsening of Mental status, all of meds were held. Tegretol leve was in tx range. Patient denied any jaw or neck pain at the time of discharge. Plan is to d/c w/o meds, then possible trial of low dose if symptoms recurr, would defer to Neurology clinic. #Acute on chronic encephalopathy, POA, likely multifactorial: toxic, medicine induced with tegretol, flexeril, high-dose steroid, episode hypoglycemia, patient became altered after this new medicine:gabapentin, Tegretol, Flexeril, steroid given. MRI with MS protocol didn't show acute changes but showed extensive chronic ischemic changes. Patient's mental status was greatly improved after cessation of all [employer] meds, return to baseline MS, AAOx3. Patient was also seen by , ordered EEG, result was pending upon d/c. patient will be followed up by or after d/c. # Decubitus Ulcers, acute on chronic, Severe decubitus ulcers over sacrum and coccyx, didn't show any signs of systemic infection, wound care was provided. patient will resume home health and have good support from her son at home. #hypoglycemic episode with Insulin-dependent type 2 diabetes. After steroid being off, patient had low fingersticks, low to 60s, likely due to insulin overdosed in the setting of poor oral intake, this probably could contribute her changes mental status. NPH was held, plan is slowly increase with 20units bid titrated up to home dose until patient can tolerate diet more. Chronic conditions, resolved # Acute Kidney injury noted on admission on chronic kidney disease Present on admission, wax and wane, seems it's at baseline. 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 # Multiple sclerosis, presumed stable on MRI # Depression. stable continued home medication # Hyperlipidemia. continued home medication # Allergic rhinitis. # Urinary incontinence, with previous suprapubic catheter, ileal conduit with urostomy. # Hypertension.continued home medication # History of asthma. stable # History of MRSA urinary tract infection with recurrent UTIs, UCX showed contamination. remained afebrile. # Diastolic dysfunction and possible PFO on echo from March 2010.continued home medication # History of seizures documented at [facility]. continued home medication , pending EEG result upon d/c # History of hypothyroidism.continued home medication Exam Vital Signs (Last) Date Time Temp Pulse Resp B/P Pulse Ox O2 Delivery O2 Flow Rate FiO2 09/20/16 04:50 36.7 80 16 176/96 98 Room Air Exam Frail, elderly, laying down on bed, AAOx3, no slurred speech. no JVD, MMM, no LAD RRR, nl s1, s2 no mrg CTAB, no w,c S,ND,NT,normoactive BS+ warm, no edema, pulses 2/2 RUE motor 3/5, LUE 4/5, improved from yesterday suprapubic cath in place Test 09/08/16 16:20 09/17/16 05:14 09/17/16 07:45 09/18/16 08:10 Hemoglobin A1c 6.5% (4.8-5.6) Hold Hussein Top Tube Received (Received) Erythrocyte Sedimentation Rate 30mm/hr (0-40) C-Reactive Protein 0.6mg/dL (0.0-0.5) Anti-Nuclear Antibody Screen Negative (Negative) Anti-Double Strand DNA Antibody 1IU/mL (0-9) White Blood Count 8.7th/mm3 (3.8-10.1) Red Blood Count 3.92mil/mm3 (3.90-5.20) Hemoglobin 11.1g/dL (12.0-15.6) Hematocrit 36.3% (35.0-46.0) Mean Corpuscular Volume 92.6fL (81-100) Mean Corpuscular Hemoglobin 28.3pg (27.0-35.0) Mean Corpuscular Hemoglobin Concent 30.6% (32.0-37.0) Red Cell Distribution Width 18.6% (12.3-15.4) Platelet Count 323bil/L (150-400) Neutrophils (%) (Auto) 56.3% (40-74) Lymphocytes (%) (Auto) 31.1% (14-46) Monocytes (%) (Auto) 8.6% (4-12) Eosinophils (%) (Auto) 3.7% (0-5) Basophils (%) (Auto) 0.1% (0-3) Phosphorus Level 3.6mg/dL (2.5-4.9) Test 09/19/16 05:43 09/19/16 14:55 09/19/16 17:00 09/20/16 05:45 Sodium Level 138mEq/L (134-144) Potassium Level 5.2mEq/L (3.5-5.2) Chloride Level 103mEq/L (97-108) Carbon Dioxide Level 21mmol/L (18-29) Blood Urea Nitrogen 33mg/dL (8-27) Creatinine 1.40mg/dL (0.57-1.00) Estimat Glomerular Filtration Rate 54mL/min (>59) Glucose Level 153mg/dL (60-99) Calcium Level 8.5mg/dL (8.5-10.1) Magnesium Level 2.3mg/dL (1.6-2.6) Total Bilirubin 0.2mg/dL (0.0-1.2) Aspartate Amino Transf (AST/SGOT) 13U/L (0-50) Alanine Aminotransferase (ALT/SGPT) 25U/L (0-32) Alkaline Phosphatase 56U/L (25-165) Total Protein 5.8g/dL (6.4-8.4) Albumin 3.0g/dL (3.4-5.0) Carbamazepine (Tegretol) Level 7.7ug/mL (4.0-12.0) Urine Color Straw (YELLOW) Urine Appearance Cloudy (CLEAR,HAZY) Urine pH 6.5 (5.0-8.0) Urine Specific [place] <1.005 (1.003-1.035) Urine Protein Tracemg/dL (NEG,TRACE) Urine Glucose (UA) Negativemg/dL (NEGATIVE) Urine Ketones Negativemg/dL (NEGATIVE) Urine Occult Blood Trace (NEGATIVE) Urine Nitrite Positive (NEGATIVE) Urine Bilirubin Negative (NEGATIVE) Urine Urobilinogen Normalmg/dL (NORMAL) Urine Leukocyte Esterase Large (NEGATIVE) Urine RBC 0-2/hpf (0-2) Urine WBC 6-10/hpf (0-5) Urine Epithelial Cells Occasional/hpf (NONE-MOD) Urine Crystals None seen (NONE SEEN) Urine Bacteria Few/hpf (NONE-FEW) Urine Hyaline Casts None/lpf (NONE) Urine Granular Casts None seen (NONE SEEN) Urine Waxy Casts None seen (NONE SEEN) Urine Red Blood Cell Casts None seen (NONE SEEN) Urine White Blood Cell Casts None seen (NONE SEEN) Urine Mucus None seen (None Seen) Urine Trichomonas None seen (NONE SEEN) Urine Yeast None (NONE SEEN) Urinalysis Comment None Urine Culture Reflexed Indicated Prothrombin Time 18.1sec (8.1-12.5) Prothromb Time International Ratio 1.67ratio Discharge Medications Discharge Medications Albuterol HFA (Proair HFA) 8.5 Gm Hfa.aer.ad 2 PUFFS INHALATION Q4H (Reported) Atenolol (Atenolol) 25 Mg Tablet 12.5 MG PO DAILY (Reported) Atorvastatin (Lipitor) 20 Mg Tablet 20 MG PO HS (Reported) Biotin (Biotin) 1,000 Mcg Tab.chew 1,000 MCG PO DAILY (Reported) Clotrimazole 1% (Clotrimazole 1%) 30 Ml Solution 30 ML TOPICAL BID (Reported) Fluticasone Propionate (Flonase Allergy Relief) 50 Mcg/Actuation [place].susp 9.9 ML NS DAILY (Reported) Hum Insulin NPH/Reg Insulin Hm (HUMulin 70/30 U100 Insulin Kwikpen) 100 Unit/1 Ml Insuln.pen 20 UNIT SUBQ BID Prescribed by: MORIAH RENNER MD Levothyroxine (Levothyroxine) 25 Mcg Tablet 25 MCG PO DAILY (Reported) Magnesium Amino Acid Chelate (Magnesium) 100 Mg Tablet 100 MG PO BID (Reported) Mupirocin (Mupirocin Ointment) 22 Gm Oint...g. 1 APPLIC TOPICAL BID Prescribed by: RAUL MARTINEZ MD Nystatin (Nystop) 60 Gm Powder 60 GM TP BID (Reported) Paroxetine (Paroxetine) 40 Mg Tablet 40 MG PO HS (Reported) Polyethylene Glycol 3350 (Miralax) 17 Gm Powd.pack 17 GM PO BID (Reported) Ubidecarenone (Co Q-10) 100 Mg Capsule 100 MG PO DAILY (Reported) Warfarin Sodium (Warfarin Sodium) 2 Mg Tablet 2 MG PO DAILY (Reported) 3mg on Wednesdays As needed Tizanidine (Tizanidine) 4 Mg Tablet 2 MG PO BID PRN PRN For Spasm (Reported) diphenhydrAMINE HCl (Benadryl) 25 Mg Capsule 50 MG PO q4-6h PRN PRN (Reported) oxyCODONE (oxyCODONE) 5 Mg Capsule 7.5 MG PO TID PRN PRN For Pain (Reported) Additional med instructions Please continue all of the home medicine. Followup Plan Disposition: home with home health. Follow-up plan Please follow up with your doctor in 2weeks Discharge Diet: No restrictions Discharge Activity: No restrictions Patient Instructions You were hospitalized with severe jaw pain, which thought be from trigeminal neuralgia, nerve disease in your face nerve. You also had episode of confusion, changes of mental status likely induced by new medicine. Your symptoms were well managed with trial of medicine, your mental status returned back to normal. Please note that if you develop severe jaw pain again then, needs to follow up with sooner that expected. Follow-up Provider: Matilda Mendieta MD Follow-up with PCP in: 2 weeks Provider: Juancarlos Small MD Follow-up in: 3 weeks Time spent 65min Moriah Renner MD Sep 20, 2016 12:03
--- NOTE | 2016-09-20 13:24 | NUR ---
Social Work- Discharge Data: EMR reviewed. Pt is on day 12 of hospitalization for facial pain, severe skin breakdown per H&P. Pt is medically stable to discharge today. GAVIOTA spoke with Juaquin, [facility] liaison, informing him of pt's discharge. Pt to receive [facility] RN services at discharge. F2F faxed and placed in pt's chart. UC coordinating outpt neurology follow up, pt and son updated and agreeable to this. MD, RN, and son to meet today at 1430 prior to pt's discharge to discuss pt's discharge plan and home care. GAVIOTA faxed discharge orders to pt's FRANCI pillowcase folder, Zoe Sutton. Pt's son states that he will be able to transport pt in a wheelchair if he uses a albert lift, which RN states can be provided. Pt to discharge home with FRANCI caregiving (her son is her FRANCI caregiver), Yessica BRIONES RN, and neurology outpt follow up. All updated and agreeable to plan. Assessment: Pt who has FRANCI and would benefit from [facility] RN. Plan: Pt to discharge home with FRANCI caregiving (her son is her FRANCI caregiver), Yessica BRIONES RN, and neurology outpt follow up. All updated and agreeable to plan. CANDELARIO Lyons
--- NOTE | 2016-09-20 13:46 | NUR ---
faxed DC summary to Zoe Lebron, pt's kati VIEIRA at [phone]
[2016-09-20 14:24] VITALS: BP 170/97; PULSE 79; RESP 16; O2SAT 100
[2016-09-20] MEDS ORDERED: CRB200TCR PO (15:15)
[2016-09-20] MEDS ORDERED: Mupirocin 2% 22 Gm Ointment TOPICAL SCH (15:45)
[2016-09-20] MEDS ORDERED: Fluticasone 0.05% 15 Spray/2 Gm 16 Gm Nasal Spray NASAL SCH (16:00)
[2016-09-20] MEDS ORDERED: Nystatin 100,000 Unit/Gm 15 Gm Powder TOPICAL SCH (16:00)
--- NOTE | 2016-09-20 16:56 | NUR ---
Discharge Pt DC home with sonKyrie. Bedside conversation had with son and Dr. Benitez answering all concerns with potential pain management and follow up plan. Dr. Small has accepted pt in oupt setting and appointment made. Nurse covered wound care and all medications in detail with pt and son with literature provided and additional supplies. All belongings sent home including hearing aids, dentures and home medications. Dressing change prior to DC and skin/eder care provided.
[2016-09-25 12:12] LABS: Antiproteinase 3 (PR-3) Abs <3.5 U/mL (0.0-3.5); Perinuclear (P-ANCA) <1:20 titer (Neg:<1:20)
== END 2016-09-20 16:15 | disposition home health service (06) | DRG 40 ==
LOC: SED 15:52 → OBSVTOIN 21:44 → OSC 21:44
PROVIDERS: ADMIT Hospitalist; ATTEND Hospitalist
PROC: 03BT0ZX Excision of Left Temporal Artery, Open Approach, Diagnostic (ICD-10-PCS; principal; 2016-09-12 10:30)
DX: G50.0 Trigeminal neuralgia (principal); L89.153 Pressure ulcer of sacral region, stage 3; R53.2 Functional quadriplegia; G92 Toxic encephalopathy; I69.351 Hemiplegia and hemiparesis following cerebral infarction affecting right dominant side; E44.0 Moderate protein-calorie malnutrition; N17.9 Acute kidney failure, unspecified; G35 Multiple sclerosis; Z68.25 Body mass index [BMI] 25.0-25.9, adult; Z79.4 Long term (current) use of insulin; Z79.82 Long term (current) use of aspirin; Z79.01 Long term (current) use of anticoagulants; Z86.718 Personal history of other venous thrombosis and embolism; Z87.891 Personal history of nicotine dependence; E03.9 Hypothyroidism, unspecified; Z86.14 Personal history of Methicillin resistant Staphylococcus aureus infection; F32.9 Major depressive disorder, single episode, unspecified; E78.5 Hyperlipidemia, unspecified; E11.649 Type 2 diabetes mellitus with hypoglycemia without coma; T42.6X5A Adverse effect of other antiepileptic and sedative-hypnotic drugs, initial encounter; I12.9 Hypertensive chronic kidney disease with stage 1 through stage 4 chronic kidney disease, or unspecified chronic kidney disease; N18.9 Chronic kidney disease, unspecified

== ENCOUNTER 2017-01-31 13:12 | Inpatient (IN) | payer MEDICARE, MEDICAID ==
[~2017-01-31] VITALS: Ht 160 cm; Wt 155.0 kg
[~2017-01-31 13:12] MED LIST changes: -AGM875T PO; -ASPI-867 PO; +BIOT10004 PO; -CHOL200047 PO; +CRB200TCR PO; +DIPH25CA6 PO; -DIPH50C PO; -GLAT20KI2 SUBQ; -MULT-1018 PO; -MULT-946 PO; +NYST60PO TOPICAL; -NYST60PO TP; +PARO40TA3 PO; -PAX20 PO; -TIZA4CAP PO; +TIZA4TAB4 PO; -WARF2.5T82 PO; +WARF2TAB7 PO
[2017-01-31 13:14] VITALS: BP 61/42; PULSE 77; RESP 15; O2SAT 99
[2017-01-31] MEDS ORDERED: 0.9% Sodium Chloride 1,000 ML IV ONE (13:18)
--- NOTE | 2017-01-31 13:46 | DRSVH ---
PROCEDURE: X-RAY CHEST ONE VIEW, PORTABLE ([id number]) INDICATIONS: weak, hypotensive TECHNIQUE: One view of the chest was acquired. COMPARISON: [facility], CR, XR CHEST 1VW, 01/07/2016, 9:45. FINDINGS: Surgical changes and devices: None. Lungs and pleura: No pleural effusions or pneumothorax. Lungs are clear. Mediastinum: Mediastinal contours appear normal. Heart size is normal. Bones and chest wall: No suspicious bony lesions. Overlying soft tissues appear unremarkable. IMPRESSION: No acute pulmonary process. Dictated by: Margie Garcia M.D. on 01/31/2017 at 13:41 Approved by: Margie Garcia M.D. on 01/31/2017 at 13:45
[2017-01-31 13:59] LABS: BASOPHILS % (AUTO) 0.1 % (0-3); EOSINOPHILS % (AUTO) 1.9 % (0-5); MONOCYTES % (AUTO) 11.2 % (4-12); Mean Corpuscular Volume 101.7 fL (81-100); NEUTROPHILS % (AUTO) 69.1 % (40-74); Platelet Count 223 bil/L (150-400)
--- NOTE | 2017-01-31 14:12 | ED.REPORT ---
HPI-General Illness Date of Service Jan 31, 2017 ED Provider: Usama Winn MD Nursing Notes Stated Complaint: WEAKNESS Chief Complaint: General Complaint Allergies: Coded Allergies: Sulfa (Sulfonamide Antibiotics) (Verified Allergy, Severe, hives, 05/31/15 ) morphine (Verified Allergy, Severe, hives, 05/31/15) Scheduled Albuterol HFA (Proair HFA) 8.5 Gm Hfa.aer.ad 2 PUFFS INHALATION Q4H Atenolol (Atenolol) 25 Mg Tablet 12.5 MG PO DAILY Atorvastatin (Lipitor) 20 Mg Tablet 20 MG PO HS Biotin (Biotin) 1,000 Mcg Tab.chew 1,000 MCG PO DAILY Carbamazepine (Tegretol Xr) 200 Mg Tablet.er 200 MG PO BID Clotrimazole 1% (Clotrimazole 1%) 30 Ml Solution 30 ML TOPICAL BID Fluticasone Propionate (Flonase Allergy Relief) 50 Mcg/Actuation [place].susp 9.9 ML NS DAILY Hum Insulin NPH/Reg Insulin Hm (HUMulin 70/30 U100 Insulin Kwikpen) 100 Unit/1 Ml Insuln.pen 20 UNIT SUBQ BID Levothyroxine (Levothyroxine) 25 Mcg Tablet 25 MCG PO DAILY Magnesium Amino Acid Chelate (Magnesium) 100 Mg Tablet 100 MG PO BID Mupirocin (Mupirocin Ointment) 22 Gm Oint...g. 1 APPLIC TOPICAL BID Nystatin (Nystop) 60 Gm Powder 60 GM TP BID Paroxetine (Paroxetine) 40 Mg Tablet 40 MG PO HS Polyethylene Glycol 3350 (Miralax) 17 Gm Powd.pack 17 GM PO BID Ubidecarenone (Co Q-10) 100 Mg Capsule 100 MG PO DAILY Warfarin Sodium (Warfarin Sodium) 2 Mg Tablet 2 MG PO DAILY 3mg on Wednesdays Scheduled PRN Tizanidine (Tizanidine) 4 Mg Tablet 2 MG PO BID PRN PRN For Spasm diphenhydrAMINE HCl (Benadryl) 25 Mg Capsule 50 MG PO q4-6h PRN PRN oxyCODONE (oxyCODONE) 5 Mg Capsule 7.5 MG PO TID PRN PRN For Pain General Time Seen by MD: 13:22 Past Medical History Past Medical History Notes: Past Medical History 1. 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 There was a question of PFO, but apparently patient refused MARY, and this was at [facility]. 2. History of left proximal DVT in 2004. 3. Multiple sclerosis since 1993, as noted in the HPI. 4. Depression. 5. Hyperlipidemia. 6. Allergic rhinitis. 7. Urinary incontinence, requiring urostomy and previously had a suprapubic catheter, now has an ileal conduit with urostomy tube. 8. Insulin-dependent type 2 diabetes. 9. Hypertension. 10. History of asthma. 11. History of MRSA urinary tract infection with recurrent UTIs in the past. 12. Diastolic dysfunction and possible PFO on echo from March 2010. 13. History of seizures documented at [facility]. 14. Chronic wounds including decubitus ulcer 15. History of hypothyroidism. 16. Pseudomonas UTIs 17. Trigeminal Neuralgia Past Surgical History 1. Status post tubal ligation. 2. Status post umbilical hernia repair as a child. 3, History of partial ostectomy of sacral spine and coccygectomy in October 10, 2010. Smoking History Former Smoker Social History Lives with her son Other Social History: Good social support, Lives with children, Local resident Ambulatory Status Wheelchair Physical Exam Vital Signs Vital Signs Date Time Temp Pulse Resp B/P Pulse Ox O2 Delivery O2 Flow Rate FiO2 01/31/17 13:14 36.4 77 15 61/42 99 Room Air Interpretation & Diagnostics Lab Results Interpretation Result Diagram: 01/31/17 1349 Test 01/31/17 13:49 White Blood Count 8.2th/mm3 (3.8-10.1) Red Blood Count 3.52mil/mm3 (3.90-5.20) Hemoglobin 10.9g/dL (12.0-15.6) Hematocrit 35.8% (35.0-46.0) Mean Corpuscular Volume 101.7fL (81-100) Mean Corpuscular Hemoglobin 31.0pg (27.0-35.0) Mean Corpuscular Hemoglobin Concent 30.4% (32.0-37.0) Red Cell Distribution Width 16.0% (12.3-15.4) Platelet Count 223bil/L (150-400) Neutrophils (%) (Auto) 69.1% (40-74) Lymphocytes (%) (Auto) 17.6% (14-46) Monocytes (%) (Auto) 11.2% (4-12) Eosinophils (%) (Auto) 1.9% (0-5) Basophils (%) (Auto) 0.1% (0-3) Discharge & Departure Referrals: Matilda Mendieta MD (PCP) Usama Winn MD Jan 31, 2017 14:12
[2017-01-31 14:28] LABS: TROPONIN T < 0.010 ug/L (0.0-0.011)
[2017-01-31 14:48] LABS: Magnesium 2.1 mg/dL (1.6-2.6)
--- NOTE | 2017-01-31 14:57 | ED.REPORT ---
HPI-General Illness Date of Service Jan 31, 2017 ED Provider: Ravi Arriola DO A 66 year old female with a history of diabetes mellitus type II, MS, CVA, LE DVT on Warfarin, hypertension, recurrent UTI's and seizures presents to the ED via EMS following a near-syncopal episode that occurred just prior to arrival. The patient pressed her [facility] button after she was unable to ambulate following the near-syncopal event that was associated with lightheadedness, weakness and dizziness. EMS report states that the patient was hypotensive at the scene. The patient felt mildly dizzy yesterday but believes her symptoms today were an exacerbation of her MS. She does not currently take any steroids for her MS. Patient denies any fever, chest pain, SOB, nausea, vomiting or diarrhea. Nursing Notes Stated Complaint: WEAKNESS Chief Complaint: General Complaint Nursing Notes Reviewed: Yes Allergies: Coded Allergies: Sulfa (Sulfonamide Antibiotics) (Verified Allergy, Severe, hives, 05/31/15 ) morphine (Verified Allergy, Severe, hives, 05/31/15) Scheduled Atenolol (Atenolol) 25 Mg Tablet 12.5 MG PO DAILY Atorvastatin (Lipitor) 20 Mg Tablet 20 MG PO HS Carbamazepine (Tegretol Xr) 200 Mg Tablet.er 200 MG PO BID Cholecalciferol (Vitamin D3) (Vitamin D3) 5,000 Unit Tab.rapdis 5,000 UNIT PO DAILY Docusate Sodium (Colace) 100 Mg Capsule 100 MG PO BID Levothyroxine (Levothyroxine) 25 Mcg Tablet 25 MCG PO QAM Magnesium Amino Acid Chelate (Magnesium) 100 Mg Tablet 100 MG PO BID NPH, Human Insulin Isophane (HUMulin-N U100 Insulin Kwikpen) 100 Unit/1 Ml Insuln.pen 40-42 UNITS SUBQ QPM Nystatin (Nystop) 60 Gm Powder 1 APPLIC TOPICAL BID mix with A&D ointment and apply to bottom Paroxetine (Paroxetine) 40 Mg Tablet 40 MG PO DAILY Polyethylene Glycol 3350 (Miralax) 17 Gm Powd.pack 17 GM PO BID Tizanidine (Tizanidine) 4 Mg Tablet 4 MG PO BID Ubidecarenone (Co Q-10) 100 Mg Capsule 100 MG PO DAILY Vits A and D/White Pet/Lanolin (A and D Ointment) 42.5 Gm Oint...g. 1 APPLIC TOPICAL BID mix with nystatin powder and apply to bottom Warfarin Sodium (Warfarin Sodium) 2 Mg Tablet 6 MG PO TREVIZO,MO,WE,TH,SA 3 MG ON TUES/FRI & 6 MG ALL OTHER DAYS Warfarin Sodium (Warfarin Sodium) 2 Mg Tablet 3 MG PO ,FRI 3 MG ON TUES/FRI & 6 MG ALL OTHER DAYS Scheduled PRN Acetaminophen (Extra Strength Non-Aspirin) 500 Mg Tablet 1-2 EACH PO TID PRN PRN For Pain Albuterol HFA (Proair HFA) 8.5 Gm Hfa.aer.ad 2 PUFFS INHALATION Q4H PRN PRN For Shortness of Breath Calcium Carbonate (Tums) 500 Mg Tab.chew 1,000 MG PO QID PRN PRN For Indigestion Fluticasone Propionate (Flonase Allergy Relief) 50 Mcg/Actuation [facility].susp 1 SPRAYS NS DAILY PRN PRN For Congestion diphenhydrAMINE HCl (Benadryl) 25 Mg Capsule 25 MG PO QID PRN PRN allergies oxyCODONE (oxyCODONE) 5 Mg Tablet 5 MG PO QID PRN PRN For Pain General Time Seen by MD: 14:26 Chief Complaint Other (Near-syncope) Hx Obtained From: Patient, EMS Arrived By: Ambulance Sudden in Onset?: Yes Onset Occurred: Just prior to arrival Symptom Duration: Since onset Severity: Current: No pain currently Severity: Maximum: No pain Associated with: Reports: Dizziness, Weakness, Denies: Chest pain, Fever, Nausea, Shortness of breath, Vomiting Pertinent Negative: Pt denies other symptoms Recent Healthcare: No recent hospitalization, Recent doctor visit Past Medical History Past Medical History Notes: Past Medical History 1. 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 There was a question of PFO, but apparently patient refused MARY, and this was at [facility]. 2. History of left proximal DVT in 2004. 3. Multiple sclerosis since 1993, as noted in the HPI. 4. Depression. 5. Hyperlipidemia. 6. Allergic rhinitis. 7. Urinary incontinence, requiring urostomy and previously had a suprapubic catheter, now has an ileal conduit with urostomy tube. 8. Insulin-dependent type 2 diabetes. 9. Hypertension. 10. History of asthma. 11. History of MRSA urinary tract infection with recurrent UTIs in the past. 12. Diastolic dysfunction and possible PFO on echo from March 2010. 13. History of seizures documented at [facility]. 14. Chronic wounds including decubitus ulcer 15. History of hypothyroidism. 16. Pseudomonas UTIs 17. Trigeminal Neuralgia Past Surgical History 1. Status post tubal ligation. 2. Status post umbilical hernia repair as a child. 3, History of partial ostectomy of sacral spine and coccygectomy in October 10, 2010. Smoking History Former Smoker Social History Lives with her son Other Social History: Good social support, Lives with children, Local resident Ambulatory Status Wheelchair Review of Systems + Near-syncope Full Review of Systems Constitutional: Denies: Fever Respiratory: Denies: Shortness of breath Cardiovascular: Denies: Chest pain GI: Denies: Diarrhea, Nausea, Vomiting Neurologic: Reports: Dizziness, Lightheaded, Weakness Complete sys rev & neg: except as marked. Physical Exam Vital Signs Vital Signs Date Time Temp Pulse Resp B/P Pulse Ox O2 Delivery O2 Flow Rate FiO2 01/31/17 16:55 75 21 117/49 100 Room Air 01/31/17 13:14 36.4 77 15 61/42 99 Room Air Initial VS: Reviewed Neck: Supple, Non-tender, Full range of motion Extremities: Vascular intact, No swelling, No tenderness Psychiatric: Mood/affect normal, Behavior normal, Normal thought content General/Constitutional: Awake, Alert, No acute distress Head / Eyes: Atraumatic, Normocephalic, PERRL ENT: Atraumatic, Airway patent Mouth: Positive: Mucous membranes dry Respiratory / Chest: Atraumatic, Breath sounds NL, Breath sounds = bilat, No respiratory distress Cardiovascular: Heart rate NL, Regular rhythm, Heart sounds NL CARDIO: Hypertensive Abdomen: Atraumatic, Soft Skin: Atraumatic, Color NL, No rash, Warm, Dry, Intact Neurologic: Oriented X3 ( O x4), Speech NL, CN II - XII intact NEURO: Right sided extremity paralysis at baseline secondary to MS Interpretation & Diagnostics Lab Results Interpretation Result Diagram: 01/31/17 1349 01/31/17 1349 Test 01/31/17 13:49 01/31/17 16:51 White Blood Count 8.2th/mm3 (3.8-10.1) Red Blood Count 3.52mil/mm3 (3.90-5.20) Hemoglobin 10.9g/dL (12.0-15.6) Hematocrit 35.8% (35.0-46.0) Mean Corpuscular Volume 101.7fL (81-100) Mean Corpuscular Hemoglobin 31.0pg (27.0-35.0) Mean Corpuscular Hemoglobin Concent 30.4% (32.0-37.0) Red Cell Distribution Width 16.0% (12.3-15.4) Platelet Count 223bil/L (150-400) Neutrophils (%) (Auto) 69.1% (40-74) Lymphocytes (%) (Auto) 17.6% (14-46) Monocytes (%) (Auto) 11.2% (4-12) Eosinophils (%) (Auto) 1.9% (0-5) Basophils (%) (Auto) 0.1% (0-3) Prothrombin Time 23.0sec (8.1-12.5) Prothromb Time International Ratio 2.12ratio Sodium Level 137mEq/L (134-144) Potassium Level 4.6mEq/L (3.5-5.2) Chloride Level 105mEq/L (97-108) Carbon Dioxide Level 13mmol/L (18-29) Blood Urea Nitrogen 47mg/dL (8-27) Creatinine 1.56mg/dL (0.57-1.00) Estimat Glomerular Filtration Rate 48mL/min (>59) Glucose Level 254mg/dL (60-99) Lactic Acid Level 1.8mmol/L (0.4-2.0) Calcium Level 8.3mg/dL (8.5-10.1) Magnesium Level 2.1mg/dL (1.6-2.6) Total Bilirubin 0.2mg/dL (0.0-1.2) Aspartate Amino Transf (AST/SGOT) 30U/L (0-50) Alanine Aminotransferase (ALT/SGPT) 39U/L (0-32) Alkaline Phosphatase 87U/L (25-165) Total Creatine Kinase 33U/L (21-215) Troponin T < 0.010ug/L (0.0-0.011) Total Protein 6.5g/dL (6.4-8.4) Albumin 3.6g/dL (3.4-5.0) Procalcitonin 0.22ng/mL (0.00-0.08) Urine Color Yellow (YELLOW) Urine Appearance Hazy (CLEAR,HAZY) Urine pH 6.5 (5.0-8.0) Urine Specific [place] 1.015 (1.003-1.035) Urine Protein Negativemg/dL (NEG,TRACE) Urine Glucose (UA) Negativemg/dL (NEGATIVE) Urine Ketones 80mg/dL (NEGATIVE) Urine Occult Blood Trace (NEGATIVE) Urine Nitrite Positive (NEGATIVE) Urine Bilirubin Negative (NEGATIVE) Urine Urobilinogen Normalmg/dL (NORMAL) Urine Leukocyte Esterase Small (NEGATIVE) Urine RBC 0-2/hpf (0-2) Urine WBC 11-50/hpf (0-5) Urine Epithelial Cells Moderate/hpf (NONE-MOD) Urine Crystals None seen (NONE SEEN) Urine Bacteria Many/hpf (NONE-FEW) Urine Hyaline Casts None/lpf (NONE) Urine Granular Casts None seen (NONE SEEN) Urine Waxy Casts None seen (NONE SEEN) Urine Red Blood Cell Casts None seen (NONE SEEN) Urine White Blood Cell Casts None seen (NONE SEEN) Urine Mucus None seen (None Seen) Urine Trichomonas None seen (NONE SEEN) Urine Yeast None (NONE SEEN) Urinalysis Comment None Urine Culture Reflexed Indicated Pulse Oximetry Interpretation Pulse Oximetry: Pulse Ox normal (99%), On room air ECG Interpretation ECG Interpretation: Sinus Rhythm Rate 79 bpm 1st Degree Heart Block No ischemic changes Time: 15:02 Interpreted by: ED physician Rhythm Strip Interpretation : Time: 15:06 Rhythm Strip Interpretation: Interpreted by me, Normal sinus rhythm X-Ray Chest Interpretation Chest Xray Interpretation: IMPRESSION: No acute pulmonary process. Dictated by: Margie Garcia M.D. on 01/31/2017 at 13:41 Interpretation / Wet Read by: Interpret - Radiologist CT Head Interpretation IMPRESSION: 1. No acute intracranial abnormalities. Moderate periventricular and deep white matter chronic small vessel ischemic change. 2. Nonacute ischemic insult of the right motor cortex as before, corresponding with the left hand homunculus. Dictated by: Avelino Prabhakar M.D. on 01/31/2017 at 20:06 Study: Head CT no contrast Interpretation / Wet Read by: Interpret - Radiologist Re-Eval/Medical Decision Time of Eval: 17:33 Patient Status: Condition improved Re-Evaluation/Progress Note: Patient condition is re-evaluated. She is informed of her current results and the intended treatment plan to admit with IV antibiotics. All of the patient's questions about her diagnosis are addressed including the recommended CT scan. She understands and agree with the plan. Consultation : Referral / Consult Name: Blanca Gregory DO Consulted With: Hospitalist Call Returned at: 19:09 [employer] Applier: Will see patient, Agrees with eval, Agrees with plan, Accepts admit Note: Discussed patient condition. Agrees with plan and accepts admission. Counseled Regarding: Diagnosis, Lab results, Need for admission Discharge & Departure Primary Impression: Urinary tract infection Urinary tract infection type: site unspecified Hematuria presence: without hematuria Qualified Code: N39.0 - Urinary tract infection, site not specified Additional Impressions: Hypotension Hypotension type: unspecified hypotension type Qualified Code: I95.9 - Hypotension, unspecified Renal insufficiency Dehydration Disposition: ADMITTED TO HOSPITAL Discharge Condition All VS Reviewed: Yes Condition: Improved Referrals: Matilda Mendieta MD (PCP) Scribe Attestation Portions of this note were transcribed by Namrata Tom. I, Dr. Arriola personally performed the history, physical exam and medical decision-making; I reviewed and confirmed the accuracy of the information in the transcribed note. copies to: Matilda Mendieta MD, Todd P DO Jan 31, 2017 14:57 NAMRATA TOM Jan 31, 2017 15:05
[2017-01-31 16:55] VITALS: BP 117/49; PULSE 75; RESP 21; O2SAT 100
[2017-01-31 17:06] LABS: APPEARANCE,URINE HAZY (CLEAR,HAZY); COLOR,URINE YELLOW (YELLOW); OCCULT BLOOD,URINE TRACE (NEGATIVE); PH,URINE 6.5 (5.0-8.0); UROBILINOGEN,URINE NORMAL (NORMAL)
[2017-01-31] MEDS ORDERED: cefTRIAXone Inj 2,000 MG in Dextrose 5% Minibag Plus 50 ML IV ONE (17:10)
[2017-01-31 17:41] LABS: INR 2.12 ratio
[2017-01-31] MEDS ORDERED: ACET-2561 PO (18:07)
[2017-01-31] MEDS ORDERED: OXYC5TAB72 PO (18:07)
[2017-01-31] MEDS ORDERED: VITS42.53 TOPICAL (18:07)
[2017-01-31] MEDS ORDERED: NPH,100I SUBQ (18:11)
[2017-01-31] MEDS ORDERED: DOCU-41 PO (18:11)
[2017-01-31] MEDS ORDERED: CALC500T9 PO (18:13)
[2017-01-31] MEDS ORDERED: WARF2TAB7 PO (18:15)
[2017-01-31] MEDS ORDERED: CHOL500062 PO (18:15)
[2017-01-31] MEDS ORDERED: Ondansetron 2 mg/mL 2 mL Inj IVPUSH PRN (19:25)
[2017-01-31] MEDS ORDERED: Polyethylene Glycol (PEG) 17 Gm Powder PO PRN (19:25)
[2017-01-31] MEDS ORDERED: Alum-Mag Hydrox-Simeth 30 mL Suspension PO PRN (19:25)
[2017-01-31 20:09] VITALS: BP 122/43; PULSE 79; RESP 16; O2SAT 100
--- NOTE | 2017-01-31 20:11 | DRSVH ---
PROCEDURE: CT BRAIN WITHOUT CONTRAST ([id number]) INDICATIONS: 66 year-old female with syncope, dizziness, on warfarin. TECHNIQUE: Noncontrast 4.5 mm thick angled axial sections acquired from the foramen magnum to the vertex, with c oronal reformats. COMPARISON: [facility], CT, CT BRAIN WO CON, 09/08/2016, 16:59. [facility], CT, CT BRAIN WO CON, 01/06/2016, 19:05. FINDINGS: Image quality: Excellent. CSF spaces: Basal cisterns are patent. No extra-axial fluid collections. The ventricles are symmet piedad in size and shape. Brain: No intracranial bleeds or masses. There is cerebral volume loss for age, with resultant vent ricular and sulcal prominence. There are moderate periventricular and deep white matter chronic smal l vessel ischemic changes. Nonacute ischemic insult of the right motor cortex is again noted. There is intracranial internal carotid artery atherosclerosis. Skull and face: Calvarium and visualized facial bones appear intact, without suspicious lesions. Sinuses: Visualized sinuses and mastoids are clear. IMPRESSION: 1. No acute intracranial abnormalities. Moderate periventricular and deep white matter chronic small vessel ischemic change. 2. Nonacute ischemic insult of the right motor cortex as before, corresponding with the left hand danii unculus. Dictated by: Avelino Prabhakar M.D. on 01/31/2017 at 20:06 Approved by: Avelino Prabhakar M.D. on 01/31/2017 at 20:10
[2017-01-31] MEDS ORDERED: Glucose 40% Oral Gel 15 Gm Tube PO PRN (20:50)
[2017-01-31] MEDS ORDERED: Dextrose 10% 250 ML IV PRN (21:10)
--- NOTE | 2017-01-31 21:16 | PCM.HPMED ---
Subjective Date of Service Jan 31, 2017 Primary Provider: Admitting Physician: Primary Care Physician: Matilda Mendieta MD Attending Physician: Admit Status: From the Emergency Department, Full Admit, Remote Telemetry Chief Complaint: Lightheadedness and weakness. . History of Present Illness: Radha Quezada is a 66-year-old female with a past medical history significant for diabetes mellitus type II, insulin using, MS, CVA's, LE DVT on warfarin, hypertension, recurrent pseudomonas UTI's and seizures who presented to [facility] emergency department via EMS following a lightheadedness and weakness. The patient pressed her [facility] button after she was unable to lift her self up while in bed. She denies syncope or near syncope. She does endorse lightheadedness, dizziness and weakness. EMS report states that the patient was hypotensive at the scene. The patient felt mildly dizzy the last several days but believes her symptoms today were an exacerbation of her MS. She does not currently take any steroids for her MS. she denies acute vision changes, sore throat, chest pain, palpitations cough, shortness of breath, abdominal pain, nausea, vomiting, fever, chills, unilateral extremity weakness from baseline or diarrhea. She does endorse minor headache, chronic nasal congestion, and chronic constipation. Vital signs in the ER: Temperature 36.4. Pulse 75. Respiratory rate 21. Blood pressure 117/49. Pulse ox 100% on room air. She was given in the ED 500 mL of NS and ceftriaxone IV 2 g 1[address] Mendieta. Neurologist is Dr. Small. . Review of Systems: A comprehensive review of systems was conducted with the patient and found to be negative except as above in the History of Present Illness. . Allergies Coded Allergies: Sulfa (Sulfonamide Antibiotics) (Verified Allergy, Severe, hives, 05/31/15 ) morphine (Verified Allergy, Severe, hives, 05/31/15) Home Medications Acetaminophen 550 mg 1-2 tablets 3 times a day as needed for pain. Albuterol 2 puffs inhaled every 4 hours as needed for shortness of breath. Atenolol 12.5 mg daily. Atorvastatin 20 mg daily at bedtime. Carbamazepine 200 mg twice a day. Colace 100 mg twice a day. CoQ10 100 mg daily Diphenhydramine 25 mg 4 times a day as needed for pruritus. Flonase one spray intranasally daily as needed for allergic rhinitis. Humulin-N U-100 40-42 units subcutaneous every afternoon. Levothyroxine 25 g daily. Magnesium 100 mg twice a day. MiraLAX 17 g twice a day. Nystatin powder applied topically twice a day as needed to affected areas. Oxycodone 5 mg 4 times a day as needed for pain. Paroxetine 40 mg daily. Tums 1000 mg 4 times a day as needed for dyspepsia. Tizanidine 4 mg twice a day. Vitamin D3 5000 units daily. Warfarin 3 mg T/F. Warfarin 6 mg S////Fri. . PMH 1. Multiple ischemic CVA's with resulting right-sided weakness, most recent in March 20, 2010. There was a question of PFO, but apparently patient refused MARY, and this was at [facility]. 2. History of left proximal DVT in 2004. 3. Multiple sclerosis since 1993, as noted in the HPI. 4. Depression. 5. Hyperlipidemia. 6. Allergic rhinitis. 7. Neurogenic bladder status post ileal conduit with urostomy tube. 8. Diabetes mellitus type II, insulin using. 9. Hypertension. 10. History of asthma. 11. History of Pseudomonas/Kelbsiella/Serratia marcescens/E.Coli urinary tract infection's. 12. Diastolic dysfunction and possible PFO on echo from March 2010. 13. History of seizures documented at [facility]. 14. Chronic wounds including decubitus ulcer. 15. Hypothyroidism. 16. Trigeminal Neuralgia. 17. Vitamin B12 deficiency anemia. 18. CKD stage III. 19. Chronic pain with opiate habituation. 20. Chronic constipation. 21. History of MRSA. 22. Morbid obesity. . Surgical History 1. Status post tubal ligation. 2. Status post umbilical hernia repair as a child. 3. History of partial ostectomy of sacral spine and coccygectomy in October 10, 2010. 4. Ileostomy. 5. Bilateral cataract extraction. . Family History Father who had prostate cancer and of "old age." Mother who uterine cancer at 50 years old. Brother who at 59 years old of head injury. . Social History Hx Alcohol Use: No Hx Substance Use: No Hx Tobacco Use: Yes (1 PPD x 20 years, quit 2001) Smoking Status: Former Smoker Living Arrangement: with Family Additional Information The patient is x 2. She has two daughters and one son. 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 Her son is her full- time caregiver. . Exam Vital Signs Vital Sign - Last Date Time Temp Pulse Resp B/P Pulse Ox O2 Delivery O2 Flow Rate FiO2 01/31/17 16:55 75 21 117/49 100 Room Air 01/31/17 13:14 36.4 Exam General: Older female lying in bed and in no acute distress, well-developed, well-nourished, appropriately interactive. HEENT: Normocephalic, atraumatic. External ears without defect. Pupils equal, round, and reactive to light and accommodation. Anicteric sclerae, moist conjunctivae, and no lid lag. Oropharynx free of erythema and cobble stoning. Mucous membranes dry. Neck: Supple with full range of motion. No jugular venous distension. No bruits. No lymphadenopathy or thyromegaly. Cardiovascular: Regular rate and rhythm with no murmurs, rubs, or gallops appreciated Pulmonary: Clear to auscultation bilaterally with no crackles, wheezes, or rhonchi. Normal respiratory effort with no use of accessory muscles. Abdomen: Soft, nontender, nondistended, bowel sounds present. Ileostomy in right lower quadrant without erythema. No hepatosplenomegaly or masses appreciated. Extremities: No clubbing, cyanosis, or edema. Skin: Normal temperature, turgor, and texture; no rash, ulcers, or subcutaneous nodules appreciated. Neurological: Decreased muscle strength, tone, and bulk. Right sided extremity paralysis at baseline secondary to MS. Lower extremities flaccid. Paralyzed from the mid thoracic level down. Bedbound. Psychiatric: Normal mood and affect. Alert and oriented to person, place, and time. . Lab and Diagnostics Labs Item Value Date Time Calcium Level 8.3 mg/dL L 01/31/17 1349 Magnesium Level 2.1 mg/dL 01/31/17 1349 Total Bilirubin 0.2 mg/dL 01/31/17 1349 Aspartate Amino Transf (AST/SGOT) 30 U/L 01/31/17 1349 Alanine Aminotransferase (ALT/SGPT) 39 U/L H 01/31/17 1349 Alkaline Phosphatase 87 U/L 01/31/17 1349 Troponin T < 0.010 ug/L 01/31/17 1349 Total Protein 6.5 g/dL 01/31/17 1349 Albumin 3.6 g/dL 01/31/17 1349 Procalcitonin 0.22 ng/mL H 01/31/17 1349 Lactic Acid Level 1.8 mmol/L 01/31/17 1349 Result Diagram: 01/31/17 1349 01/31/17 1349 Microbiology Blood cultures 2 pending. Urine culture pending. . X-Rays, CTs and MRIs X-RAY CHEST ONE VIEW, PORTABLE IMPRESSION: No acute pulmonary process. Dictated by: Margie Garcia M.D. on 01/31/2017 at 13:41 CT BRAIN WITHOUT CONTRAST IMPRESSION: 1. No acute intracranial abnormalities. Moderate periventricular and deep white matter chronic small vessel ischemic change. 2. Nonacute ischemic insult of the right motor cortex as before, corresponding with the left hand homunculus. Dictated by: Avelino Prabhakar M.D. on 01/31/2017 at 20:06 . 12-lead ECG EKG: Sinus rhythm, heart rate 74, normal axis, first-degree AV block, prolonged QTC at 469 ms, otherwise normal intervals, poor R-wave progression, no pathological Q waves or acute ischemic changes such as ST elevation or depression. . Assessment & Plan Radha Quezada is a 66-year-old female with a past medical history significant for diabetes mellitus type II, insulin using, MS, CVA's, LE DVT on warfarin, hypertension, recurrent UTI's and seizures who presented to [facility] emergency department via EMS following a near syncopal episode that occurred a few hours prior to arrival. 1. Acute kidney injury on chronic kidney disease stage III, present on admission. Active. - Patient's baseline creatinine 1.2-1.4 in 09/2016. Initial creatinine 1.56. - Avoid nephrotoxins. - Ileostomy with Orozco catheter attached which is changed every two days. - Ordered gentle IV fluid hydration with NS at 75 mL/hr due to history of diastolic heart failure. 2. Acute urinary tract infection, present on admission. Active. - Patient presented after lightheadedness and weakness. - Procalcitonin 0.22 in the context of CKD III. - Lactic acid normal at 1.8. - Urinalysis looks grossly infected, however, moderate amount of epithelial cells therefore likely a contaminated specimen. Re-ordered clean catch urinalysis with culture if indicated - Received ceftriaxone in the ED. Started Zosyn 3.375 g every 8 hours as the patient has a history of Pseudomonas UTI's. - Continue to use good hygiene with catheter. 3. Possible multiple sclerosis exacerbation , present on admission. - Patient presented after lightheadedness and weakness. - CT brain did not reveal any acute intracranial abnormalities, as above. - Will treat acute UTI and wait to see if symptoms resolve prior to initiating steroids. If clinical symptoms do not improve would consider Solu-Medrol 1g for 3-5 days. Neurology consult. - Continue Tizanidine 4 mg twice a day for muscle spasm. - Continue Vitamin D3 5000 units daily. Chronic problems: 4. History of DVT on warfarin. - Initial INR therapeutic at 2.12. - Continue warfarin with dosing per pharmacist. 5. Hypertension, present on admission. Stable. - Continue atenolol 12.5 mg daily. 6. Hyperlipidemia, present on admission. Stable. - Continue atorvastatin 20 mg daily at bedtime. 7. Diabetes mellitus type II, insulin using. - Hemoglobin A1c 6.5% in 08/2016. Repeat hemoglobin A1c pending. - Order medium-dose correctional scale insulin. - Continue Humulin-N -100 - Ordered heart healthy/carbohydrate consistent diet. 8. Depression, present on admission. Stable. - Continue paroxetine 40 mg daily. 9. Allergic rhinitis, present on admission. Stable. - Continue Flonase one spray intranasally daily as needed for allergic rhinitis. 10. Hypothyroidism, present on admission. Stable. - Continue levothyroxine 25 g daily. 11. Asthma, not present on admission. Stable. - Continue albuterol nebs every 4 hours as needed for shortness of breath. 12. Seizure disorder, present on admission. Stable. - Continue carbamazepine 200 mg twice a day. 13. Chronic wounds, present on admission. Stable. - Ordered wound care evaluation. - Continue nystatin powder applied topically twice a day as needed to affected areas. 14. Chronic pain with opiate habituation, present on admission. Stable. - Continue oxycodone 5-325 mg 4 times a day as needed for pain. 15. Chronic constipation, present on admission. Stable. - Continue Colace 100 mg twice a day and MiraLAX 17 g twice a day. 16. Vitamin B12 deficiency anemia, present on admission. Stable. - The patient receives vitamin B12 IV 1000 mg monthly, however, she does not believe she has received one of these in several months. - Initial hemoglobin 10.9 with an MCV of 101.7. - Ordered vitamin B12 level as this can contribute to weakness. - Hemodynamically stable and no acute signs of bleeding. - Continue to monitor H&H daily. 17. Morbid obesity, present on admission. - BMI 55.2. - Ordered physical therapy evaluation and treatment. 18. History of MRSA. - Ordered MRSA screen. If colonized needs to be treated with Bactroban twice a day 10 days. - Place patient in contact isolation. PRN antiemetics: Zofran and Maalox. PRN bowel regimen: Senna and MiraLAX. PRN analgesics: Tylenol. Patient is admitted under inpatient status with expected length of stay greater than 2 midnights due to severity of presenting symptoms, risk of adverse event, and complexity of treatment plan. . VTE Prophylaxis: Theraputic Anticoag with Warfarin, SCDs Resuscitation Status: CPR: Attempt Resuscitation Attending Statement The patient was seen and examined together with Dr. Soliman on 01/31/2017 and I agree with the history, exam and plan as outlined in the note above. copies to: Matilda Mendieta MD; Juancarlos Small MD, Georgia M DO Jan 31, 2017 19:28 Blanca Gregory DO Jan 31, 2017 22:24
[2017-01-31 21:28] VITALS: BP 155/74; PULSE 80; RESP 17; O2SAT 100
--- NOTE | 2017-01-31 21:29 | PCM.CONPHA ---
Subjective Date of Service: Jan 31, 2017 Lightheadedness and weakness. . Reason for Pharmacy Consult: Anticoagulation Management Objective Vital Signs Date Time Temp Pulse Resp B/P Pulse Ox O2 Delivery O2 Flow Rate FiO2 01/31/17 20:09 79 16 122/43 100 Room Air 01/31/17 16:55 75 21 117/49 100 Room Air 01/31/17 13:14 36.4 77 15 61/42 99 Room Air Weight (Kilograms): 155 Height (Feet): 5 Height (Inches): 6 Test 01/31/17 13:49 01/31/17 16:51 White Blood Count 8.2th/mm3 (3.8-10.1) Red Blood Count 3.52mil/mm3 (3.90-5.20) Hemoglobin 10.9g/dL (12.0-15.6) Hematocrit 35.8% (35.0-46.0) Mean Corpuscular Volume 101.7fL (81-100) Mean Corpuscular Hemoglobin 31.0pg (27.0-35.0) Mean Corpuscular Hemoglobin Concent 30.4% (32.0-37.0) Red Cell Distribution Width 16.0% (12.3-15.4) Platelet Count 223bil/L (150-400) Neutrophils (%) (Auto) 69.1% (40-74) Lymphocytes (%) (Auto) 17.6% (14-46) Monocytes (%) (Auto) 11.2% (4-12) Eosinophils (%) (Auto) 1.9% (0-5) Basophils (%) (Auto) 0.1% (0-3) Prothrombin Time 23.0sec (8.1-12.5) Prothromb Time International Ratio 2.12ratio Sodium Level 137mEq/L (134-144) Potassium Level 4.6mEq/L (3.5-5.2) Chloride Level 105mEq/L (97-108) Carbon Dioxide Level 13mmol/L (18-29) Blood Urea Nitrogen 47mg/dL (8-27) Creatinine 1.56mg/dL (0.57-1.00) Estimat Glomerular Filtration Rate 48mL/min (>59) Glucose Level 254mg/dL (60-99) Lactic Acid Level 1.8mmol/L (0.4-2.0) Calcium Level 8.3mg/dL (8.5-10.1) Magnesium Level 2.1mg/dL (1.6-2.6) Total Bilirubin 0.2mg/dL (0.0-1.2) Aspartate Amino Transf (AST/SGOT) 30U/L (0-50) Alanine Aminotransferase (ALT/SGPT) 39U/L (0-32) Alkaline Phosphatase 87U/L (25-165) Total Creatine Kinase 33U/L (21-215) Troponin T < 0.010ug/L (0.0-0.011) Total Protein 6.5g/dL (6.4-8.4) Albumin 3.6g/dL (3.4-5.0) Procalcitonin 0.22ng/mL (0.00-0.08) Urine Color Yellow (YELLOW) Urine Appearance Hazy (CLEAR,HAZY) Urine pH 6.5 (5.0-8.0) Urine Specific [place] 1.015 (1.003-1.035) Urine Protein Negativemg/dL (NEG,TRACE) Urine Glucose (UA) Negativemg/dL (NEGATIVE) Urine Ketones 80mg/dL (NEGATIVE) Urine Occult Blood Trace (NEGATIVE) Urine Nitrite Positive (NEGATIVE) Urine Bilirubin Negative (NEGATIVE) Urine Urobilinogen Normalmg/dL (NORMAL) Urine Leukocyte Esterase Small (NEGATIVE) Urine RBC 0-2/hpf (0-2) Urine WBC 11-50/hpf (0-5) Urine Epithelial Cells Moderate/hpf (NONE-MOD) Urine Crystals None seen (NONE SEEN) Urine Bacteria Many/hpf (NONE-FEW) Urine Hyaline Casts None/lpf (NONE) Urine Granular Casts None seen (NONE SEEN) Urine Waxy Casts None seen (NONE SEEN) Urine Red Blood Cell Casts None seen (NONE SEEN) Urine White Blood Cell Casts None seen (NONE SEEN) Urine Mucus None seen (None Seen) Urine Trichomonas None seen (NONE SEEN) Urine Yeast None (NONE SEEN) Urinalysis Comment None Urine Culture Reflexed Indicated Assessment/Plan Assessment/Plan WARFARIN MANAGEMENT A\ 66YO F ADMITTED WITH UTI RENAL INSUFFICIENCY HISTORY OF LE DVT INR GOAL = 2-3 CURRENT INR = 2.12 HCT=35.8 VIY=052 HOME DOSE WARFARIN 3MG TUE, FRI 6MG REST OF THE WEEK CONCURRENT USE OF ASPIRIN AND CLOPIDOGREL PT HAS NOT TAKEN WARFARIN TONIGHT AND RN REPORTS NO BLEEDING P\ WILL CONTINUE HOME WARFARIN REGIMENT. WARFARIN 3MG PO X1 TONIGHT AND DAILY PT /INR Rafael Garcia [facility] Jan 31, 2017 21:29
[2017-01-31] MEDS: 0.9% Sodium Chloride 1,000 ML IV SCH (21:32)
[2017-01-31] MEDS: Insulin LISPRO 300 Unit/3 mL Inj SUBQ SCH (21:42)
[2017-01-31] MEDS ORDERED: Piperacillin-Tazo 3.375 Gm Inj 3.375 GM in Dextrose 5% Minibag Plus 50 ML IV ONE (23:05)
[2017-01-31] MEDS: Insulin Human NPH 100 Unit/mL Syringe SUBQ SCH (23:43)
[2017-01-31] MEDS ORDERED: Albuterol 2.5 mg/3 mL Inhalation Solution NEB PRN (23:50)
[2017-02-01] MEDS: Insulin LISPRO 300 Unit/3 mL Inj SUBQ SCH ×4 (00:05→17:38)
[2017-02-01] MEDS ORDERED: Heparin 5,000 Unit/mL Inj SUBQ SCH ×2 (00:30)
[2017-02-01] MEDS: carBAMazepine 200 mg ER12 Tablet PO SCH ×3 (00:48→21:02)
[2017-02-01] MEDS: Piper-Tazo 3.375 Gm/50 mL D5W Minibag Plus - Q8H over 4 hrs IV SCH ×6 (03:54→21:02)
[2017-02-01 04:02] VITALS: BP 106/64; PULSE 86; RESP 17; O2SAT 98
--- NOTE | 2017-02-01 05:58 | NUR ---
Admit Note Pt. arrived to the floor approx. 2130 via gurney accompanied by ED staff, transferred to bed with slide board and 3 PA, alert and oriented, calm and pleasant, oriented to rm and call light, notable contracted right arm, BLE flaccid, paralyzed from mid thoracic level down d/t MS, suprapubic catheter present, intact, patent and draining well, started IV ABO, tolerated well, Vitals stable, afebrile, call light in reach at all times, hourly checks, will continue to monitor.
[2017-02-01 06:19] VITALS: PULSE 82
[2017-02-01 07:34] LABS: BASOPHILS % (AUTO) 0.1 % (0-3); EOSINOPHILS % (AUTO) 2.9 % (0-5); MONOCYTES % (AUTO) 12.1 % (4-12); Mean Corpuscular Hemoglobin 30.8 pg (27.0-35.0); Mean Corpuscular Volume 100.9 fL (81-100); NEUTROPHILS % (AUTO) 54.9 % (40-74); Platelet Count 213 bil/L (150-400)
[2017-02-01 07:51] LABS: INR 2.34 ratio
[2017-02-01] MEDS ORDERED: Fluticasone 0.05% 15 Spray/2 Gm 16 Gm Nasal Spray NASAL PRN (08:30)
--- NOTE | 2017-02-01 08:37 | PCM.PHAPRO ---
Progress Date of Service: Feb 01, 2017 Warfarin dosing Date Feb 01-Jan INR 2.12 2.34 INR change 0.22 Warf Dose 3MG 3MG Elvis Hickman Feb 01, 2017 08:37
[2017-02-01 08:56] VITALS: PULSE 89
[2017-02-01] MEDS ORDERED: HYDR-656 PO (09:19)
[2017-02-01] MEDS: Nystatin 100,000 Unit/Gm 15 Gm Powder TOPICAL SCH ×2 (09:20→20:50)
[2017-02-01] MEDS: A & D 42.5 Gm Ointment TOPICAL SCH ×2 (09:20→20:51)
[2017-02-01] MEDS: PARoxetine 20 mg Tablet PO SCH (09:21)
[2017-02-01] MEDS: Polyethylene Glycol (PEG) 17 Gm Powder PO SCH ×2 (09:21→20:59)
[2017-02-01 10:00] VITALS: BP 132/78; PULSE 88; RESP 16; O2SAT 98
--- NOTE | 2017-02-01 14:00 | PCM.PNMED ---
Subjective Date of Service Feb 01, 2017 Subjective Patient feels better today. Exam Vital Signs Vital Sign - Last Date Time Temp Pulse Resp B/P Pulse Ox O2 Delivery O2 Flow Rate FiO2 02/01/17 08:56 89 02/01/17 04:02 37.1 17 106/64 98 Room Air Intake and Output 01/31/17 01/31/17 02/01/17 Cumulative From/Thru 15:00 23:00 07:00 01/31/17 13:14 - 02/01/17 06:09 Intake Total 1000 ml 904 ml 1904 ml Output Total 1400 ml 1400 ml Balance 1000 ml -496 ml 504 ml Intake Oral 240 ml 240 ml IV Total 1000 ml 664 ml 1664 ml Output Urine Total 1400 ml 1400 ml Exam PHYSICAL EXAM: GENERAL: Alert, not in distress, cooperative HEAD: atraumatic, normocephalic, no bruises. EYES: MILLY, EOMI, anicteric, able to fully open and close eyelids SKIN: Skin color normal, turgor normal. No visible rashes or lesions. EAR, NOSE, MOUTH, THROAT: Lips, oral mucosa, tongue gums, oropharynx are moist , pink, no lesions. NECK: supple ROM normal. RESPIRATORY: Lungs clear to auscultation. Good diaphragmatic excursion. CARDIAC: normal S1 and S2; no rubs, murmurs, or gallops; regular rate and rhythm ABDOMEN: Abdomen soft, non-tender. BS normal. No masses or organomegaly. MUSCULOSKELETAL: ROM full, muscles are not tender EXTREMITIES: no pitting edema in LE, no new deformities or skin discoloration. NEURO: Alert, oriented X 3, Cranial nerves II-XII intact, Grossly normal motor function. PULSES: 2+ radial, 2+ carotid REVIEW OF SYSTEMS: GENERAL: no malaise, no fevers., SEE HPI HEENT: Negative for frequent or significant headaches All other reviewed and negative other than HPI. IVs and Medications Medications Reviewed: Medications were reviewed in detail Lab and Diagnostics Result Diagram: 02/01/1715 02/01/17714 Microbiology Blood cultures 2 pending. Urine culture pending. . X-Rays, CTs and MRIs X-RAY CHEST ONE VIEW, PORTABLE IMPRESSION: No acute pulmonary process. Dictated by: Margie Garcia M.D. on 01/31/2017 at 13:41 CT BRAIN WITHOUT CONTRAST IMPRESSION: 1. No acute intracranial abnormalities. Moderate periventricular and deep white matter chronic small vessel ischemic change. 2. Nonacute ischemic insult of the right motor cortex as before, corresponding with the left hand homunculus. Dictated by: Avelino Prabhakar M.D. on 01/31/2017 at 20:06 . 12-lead ECG EKG: Sinus rhythm, heart rate 74, normal axis, first-degree AV block, prolonged QTC at 469 ms, otherwise normal intervals, poor R-wave progression, no pathological Q waves or acute ischemic changes such as ST elevation or depression. . Assessment & Plan Radha Quezada is a 66-year-old female with a past medical history significant for diabetes mellitus type II, insulin using, MS, CVA's, LE DVT on warfarin, hypertension, recurrent UTI's and seizures who presented to [facility] emergency department via EMS following a near syncopal episode that occurred a few hours prior to arrival. 1. Acute kidney injury on chronic kidney disease stage III, present on admission. Active. - improving - c/w IVF, monitor kidney function 2. Acute urinary tract infection, present on admission. Active. - stable - c/w current antibiotics 3. Possible multiple sclerosis exacerbation , present on admission. - Patient presented after lightheadedness and weakness. - CT brain did not reveal any acute intracranial abnormalities, as above. - Will treat acute UTI and wait to see if symptoms resolve prior to initiating steroids. If clinical symptoms do not improve would consider Solu-Medrol 1g for 3-5 days. - Continue Tizanidine 4 mg twice a day for muscle spasm. - Continue Vitamin D3 5000 units daily. Chronic problems: 4. History of DVT on warfarin. - Initial INR therapeutic at 2.12. Patient is aware of risks of bleeding while on anticoagulation. - Continue warfarin with dosing per pharmacist. 5. Hypertension, - BP on the lower side - hold atenolol 6. Hyperlipidemia, present on admission. Stable. - Continue atorvastatin 20 mg daily at bedtime. 7. Diabetes mellitus type II, insulin using. - Hemoglobin A1c 6.5% in 08/2016. Repeat hemoglobin A1c pending. - medium-dose correctional scale insulin. - Continue Humulin-N -100 8. Depression, present on admission. Stable. - Continue paroxetine 40 mg daily. 9. Allergic rhinitis, present on admission. Stable. - Continue Flonase one spray intranasally daily as needed for allergic rhinitis. 10. Hypothyroidism, present on admission. Stable. - Continue levothyroxine 25 g daily. 11. Asthma, not present on admission. Stable. - Continue albuterol nebs every 4 hours as needed for shortness of breath. 12. Seizure disorder, present on admission. Stable. - Continue carbamazepine 200 mg twice a day. 13. Chronic wounds, present on admission. Stable. - Ordered wound care evaluation. - Continue nystatin powder applied topically twice a day as needed to affected areas. 14. Chronic pain with opiate habituation, present on admission. Stable. - Continue oxycodone 5-325 mg 4 times a day as needed for pain. 15. Chronic constipation, present on admission. Stable. - Continue Colace 100 mg twice a day and MiraLAX 17 g twice a day. 16. Vitamin B12 deficiency anemia, present on admission. Stable. - The patient receives vitamin B12 IV 1000 mg monthly, however, she does not believe she has received one of these in several months. - Initial hemoglobin 10.9 with an MCV of 101.7. - Ordered vitamin B12 level as this can contribute to weakness. - Hemodynamically stable and no acute signs of bleeding. - Continue to monitor H&H daily. 17. Morbid obesity, present on admission. - BMI 55.2. - Ordered physical therapy evaluation and treatment. DVT PROPHYLAXIS: Warfarin Code status: full code Disposition: discharge in 1-3 days after patient improves. Labs, radiology tests reviewed. Plan of care, medication side effects, home medication, diagnostic procedures and available alternatives were discussed and reviewed with patient/family . All questions answered. Patient/family verbalized understanding, approved and agreed to plan of care. VTE Prophylaxis: Theraputic Anticoag with Warfarin, SCDs Resuscitation Status: CPR: Attempt Resuscitation All Barron MD Feb 01, 2017 13:59
--- NOTE | 2017-02-01 14:25 | NUR ---
Evaluation completed. Please go to "Notes" then click on "Assessments and Notes" (bottom left corner of screen). Then select appropriate discipline tab on top of screen.
--- NOTE | 2017-02-01 15:19 | NUR ---
Skin/Mentation Pt has lower back redness and breakdown, lotion and nystatin applied. Pt feels hot r/t MS, unable to adjust thermostat so pt will be transferring to [facility] [place]. Pt is forgetful at times, forgetting parts of conversation immediately after speaking about them. Pt quickly returns to baseline a&ox3 and is a pleasant lady.
--- NOTE | 2017-02-01 16:37 | NUR ---
[place] [facility] [facility] [place] [id number].
--- NOTE | 2017-02-01 17:00 | NUR ---
transfer from [facility] [place] Pt arrived on unit and was [facility] d/t buttock skin condition. VS WNL. Urostomy bag draining to gravity. Pt denies pain. IV infusing at ankle. Pts entire buttocks and sacrum has blanchable redness. Pt has two possible pressure ulcers on coccyx and right upper buttocks. Both are meaty red and had minimal serosanguineous drainage. Pt stated that her puts a home mixture of nystatin on it and refused a mepolex dressing. Wound consult for Friday and turns being implemented. Pt has right hand contracture w/minimal movement and is paralysed from mid thoracic down, Left hand is fully functional. Pt is oriented to self and place but is very forgetful.
[2017-02-01 17:33] VITALS: BP 138/74; PULSE 109; RESP 16; O2SAT 97
[2017-02-01 19:27] VITALS: BP 136/68; PULSE 84; RESP 16; O2SAT 96
[2017-02-01] MEDS: 0.9% Sodium Chloride 1,000 ML IV SCH (21:19)
[2017-02-01] MEDS: Insulin Human NPH 100 Unit/mL Syringe SUBQ SCH (21:19)
[2017-02-02] VITALS (9 sets, daily range): BP systolic 99–165; BP diastolic 63–85; PULSE 72–85; RESP 16–18; O2SAT 96–100
[2017-02-02] MEDS: Piper-Tazo 3.375 Gm/50 mL D5W Minibag Plus - Q8H over 4 hrs IV SCH ×6 (04:06→20:16)
[2017-02-02 05:42] LABS: INR 2.34 ratio
--- NOTE | 2017-02-02 07:59 | PCM.PHAPRO ---
Progress Warfarin Management by Pharmacy: -inr remains stable, 2.34 today -Coag Trends: Feb 01-Feb 02-Jan 2.12 2.34 2.34 0.22 3MG 3MG 3MG -Plan: continue with warfarin 3mg this evening and monitor Kimberly [facility] Feb 02, 2017 07:59
[2017-02-02] MEDS: Insulin LISPRO 300 Unit/3 mL Inj SUBQ SCH ×4 (08:00→22:00)
[2017-02-02] MEDS: Polyethylene Glycol (PEG) 17 Gm Powder PO SCH ×2 (09:58→20:17)
[2017-02-02] MEDS: PARoxetine 20 mg Tablet PO SCH (09:58)
[2017-02-02] MEDS: carBAMazepine 200 mg ER12 Tablet PO SCH ×2 (09:59→20:17)
[2017-02-02] MEDS: A & D 42.5 Gm Ointment TOPICAL SCH ×2 (09:59→20:17)
[2017-02-02] MEDS: Nystatin 100,000 Unit/Gm 15 Gm Powder TOPICAL SCH ×2 (09:59→20:21)
[2017-02-02] MEDS: 0.9% Sodium Chloride 1,000 ML IV SCH ×2 (10:50→13:30)
--- NOTE | 2017-02-02 16:11 | PCM.PNMED ---
Subjective Date of Service Feb 02, 2017 Subjective Pt had no overnight events. Denies abd pain. Urostomy bag draining. Exam Vital Signs Vital Sign - Last Date Time Temp Pulse Resp B/P Pulse Ox O2 Delivery O2 Flow Rate FiO2 02/02/17 15:38 37.1 82 18 148/79 99 Room Air Intake and Output 02/01/17 02/01/17 02/02/17 Cumulative From/Thru 15:00 23:00 07:00 01/31/17 13:14 - 02/02/17 05:59 Intake Total 1248 ml 1299 ml 4451 ml Output Total 700 ml 1800 ml 3900 ml Balance 548 ml -501 ml 551 ml Intake Oral 300 ml 400 ml 940 ml IV Total 948 ml 899 ml 3511 ml Output Urine Total 700 ml 1800 ml 3900 ml # Bowel Movements 0 0 Exam General: Older female lying in bed and in no acute distress, well-developed, well-nourished, appropriately interactive. HEENT: Normocephalic, atraumatic. External ears without defect. Pupils equal, round, and reactive to light and accommodation. Anicteric sclerae, moist conjunctivae, and no lid lag. Oropharynx free of erythema and cobble stoning. Mucous membranes dry. Neck: Supple with full range of motion. No jugular venous distension. No bruits. No lymphadenopathy or thyromegaly. Cardiovascular: Regular rate and rhythm with no murmurs, rubs, or gallops appreciated Pulmonary: Clear to auscultation bilaterally with no crackles, wheezes, or rhonchi. Normal respiratory effort with no use of accessory muscles. Abdomen: Soft, nontender, nondistended, bowel sounds present. Ileostomy in right lower quadrant without erythema. No hepatosplenomegaly or masses appreciated. Extremities: No clubbing, cyanosis, or edema. Skin: Normal temperature, turgor, and texture; no rash, ulcers, or subcutaneous nodules appreciated. Neurological: Decreased muscle strength, tone, and bulk. Right sided extremity paralysis at baseline secondary to MS. Lower extremities flaccid. Paralyzed from the mid thoracic level down. Bedbound. Psychiatric: Normal mood and affect. Alert and oriented to person, place, and time. IVs and Medications Medications Reviewed: Medications were reviewed in detail Lab and Diagnostics Result Diagram: 02/01/17 0715 02/01/17 0715 Microbiology Blood cultures 2 pending. Urine culture pending. . X-Rays, CTs and MRIs X-RAY CHEST ONE VIEW, PORTABLE IMPRESSION: No acute pulmonary process. Dictated by: Margie Garcia M.D. on 01/31/2017 at 13:41 CT BRAIN WITHOUT CONTRAST IMPRESSION: 1. No acute intracranial abnormalities. Moderate periventricular and deep white matter chronic small vessel ischemic change. 2. Nonacute ischemic insult of the right motor cortex as before, corresponding with the left hand homunculus. Dictated by: Avelino Prabhakar M.D. on 01/31/2017 at 20:06 . 12-lead ECG EKG: Sinus rhythm, heart rate 74, normal axis, first-degree AV block, prolonged QTC at 469 ms, otherwise normal intervals, poor R-wave progression, no pathological Q waves or acute ischemic changes such as ST elevation or depression. . Assessment & Plan Radha Quezada is a 66-year-old female with a past medical history significant for diabetes mellitus type II, insulin using, MS, CVA's, LE DVT on warfarin, hypertension, recurrent UTI's and seizures who presented to [facility] emergency department via EMS following an episode of lightheadedness and weakness, found by EMS to by hypotensive. Weakness possibly multiple sclerosis exacerbation , present on admission. - Patient presented after lightheadedness and weakness. - CT brain did not reveal any acute intracranial abnormalities, as above. - Will treat acute UTI and wait to see if symptoms resolve prior to initiating steroids. If clinical symptoms do not improve would consider Solu-Medrol 1g for 3-5 days. - Continue Tizanidine 4 mg twice a day for muscle spasm. - F/u with outpatient Neurologist- Dr. Small Acute kidney injury on chronic kidney disease stage III, present on admission. Active. - Patient's baseline creatinine 1.2-1.4 in 09/2016. Initial creatinine 1.56. - Avoid nephrotoxins. - Ileostomy with Orozco catheter attached which is changed every two days. - c/w IVF, monitor kidney function Acute urinary tract infection, present on admission. Active. - Procalcitonin 0.22 in the context of CKD III. - Lactic acid normal at 1.8. -- Received ceftriaxone in the ED. Started Zosyn on 01/31 given history of Pseudomonas UTI's. Hypertension w/ presentation of hypotension, poa, active. - BP on the lower side - hold atenolol until can tolerate. Chronic wounds, present on admission. Active. - wound care evaluation. - Continue nystatin powder applied topically twice a day as needed to affected areas. Chronic problems: History of DVT on warfarin, chronic, stable - Initial INR therapeutic at 2.12. Patient is aware of risks of bleeding while on anticoagulation. - Continue warfarin with dosing per pharmacist. Hyperlipidemia, present on admission. Stable. - Continue atorvastatin 20 mg daily at bedtime. Diabetes mellitus type II, insulin using. - Hemoglobin A1c 6.5% in 08/2016. Repeat hemoglobin A1c pending. - medium-dose correctional scale insulin. - Continue Humulin-N -100 Depression, present on admission. Stable. - Continue paroxetine 40 mg daily. Allergic rhinitis, present on admission. Stable. - Continue Flonase one spray intranasally daily as needed for allergic rhinitis. Hypothyroidism, present on admission. Stable. - Continue levothyroxine 25 g daily. Asthma, not present on admission. Stable. - Continue albuterol nebs every 4 hours as needed for shortness of breath. Seizure disorder, present on admission. Stable. - Continue carbamazepine 200 mg twice a day. Chronic pain with opiate habituation, present on admission. Stable. - Continue oxycodone 5-325 mg 4 times a day as needed for pain. Chronic constipation, present on admission. Stable. - Continue Colace 100 mg twice a day and MiraLAX 17 g twice a day. Vitamin B12 deficiency anemia, present on admission. Stable. - The patient receives vitamin B12 IV 1000 mg monthly, however, she does not believe she has received one of these in several months. - Initial hemoglobin 10.9 with an MCV of 101.7. - vitamin B12 254, Folate 5.3 - Hemodynamically stable and no acute signs of bleeding. Morbid obesity, present on admission. - BMI 55.2. - Ordered physical therapy evaluation and treatment. DVT PROPHYLAXIS: Warfarin Code status: full code Disposition: Will need to transition to PO antibiotics upon discharge. Follow up with Neurology as outpatient, Dr Small. VTE Prophylaxis: Theraputic Anticoag with Warfarin, SCDs Resuscitation Status: CPR: Attempt Resuscitation Damon De Santiago MD Feb 02, 2017 16:11
--- NOTE | 2017-02-02 17:00 | NUR ---
Social Work: Brief Note STEPHANE has been delivered and signed by patient. CANDELARIO Mercado
--- NOTE | 2017-02-02 18:21 | NUR ---
skin/ refusal of Q2 turns/ mentation Pt has macerated skin under bilateral breasts, lower abdomen and inner thighs. Placed nystatin under breasts with pillow cases and abdominal fold. Applied barrier cream to inner thighs. Pt also has macerated skin over entire buttocks and lower back as well as two possible pressure ulcers. Mepolex dressing applied and wound care consult for Friday. Pt is on P500 and refused most of turns during shift. Patient is alert and oriented but very forgetful.
[2017-02-02] MEDS: Insulin Human NPH 100 Unit/mL Syringe SUBQ SCH (22:37)
[2017-02-03] VITALS (8 sets, daily range): BP systolic 105–155; BP diastolic 66–80; PULSE 83–90; RESP 18–20; O2SAT 97–99
[2017-02-03] MEDS: 0.9% Sodium Chloride 1,000 ML IV SCH ×2 (00:23→14:56)
--- NOTE | 2017-02-03 03:04 | NUR ---
Skin Patient scheduled for wound consult. Mepalex on buttox and sacrum. Nystatin sprinkled under breasts, thighs and pannus area. Tele sinus 80's. Urostomy draining to gravity. Patient not always compliant with turning schedule. A&OX3. Care continues.
[2017-02-03 06:43] LABS: BASOPHILS % (AUTO) 0.6 % (0-3); EOSINOPHILS % (AUTO) 5.1 % (0-5); MONOCYTES % (AUTO) 9.6 % (4-12); Mean Corpuscular Hemoglobin 31.8 pg (27.0-35.0); Mean Corpuscular Volume 100.9 fL (81-100); NEUTROPHILS % (AUTO) 46.4 % (40-74); Platelet Count 206 bil/L (150-400)
[2017-02-03 06:47] LABS: APPEARANCE,URINE HAZY (CLEAR,HAZY); COLOR,URINE YELLOW (YELLOW); OCCULT BLOOD,URINE LARGE (NEGATIVE)
[2017-02-03 06:48] LABS: UROBILINOGEN,URINE NORMAL (NORMAL)
[2017-02-03 07:03] LABS: INR 2.04 ratio
--- NOTE | 2017-02-03 07:13 | PCM.PNMED ---
Subjective Date of Service Feb 03, 2017 Subjective Pt was afebrile overnight. Son and Pt both requested to leave hospital or go to viewing area within hospital for solar eclipse and request has been forwarded to staff. Exam Vital Signs Vital Sign - Last Date Time Temp Pulse Resp B/P Pulse Ox O2 Delivery O2 Flow Rate FiO2 02/03/17 07:02 36.7 87 18 120/75 98 Room Air Intake and Output 02/02/17 02/02/17 02/03/17 Cumulative From/Thru 15:00 23:00 07:00 01/31/17 13:14 - 02/03/17 06:09 Intake Total 1941 ml 903 ml 7295 ml Output Total 1725 ml 5625 ml Balance 216 ml 903 ml 1670 ml Intake Oral 836 ml 1776 ml IV Total 1105 ml 903 ml 5519 ml Output Urine Total 1725 ml 5625 ml # Bowel Movements 0 Exam General: Older female lying in bed and in no acute distress, well-developed, well-nourished, appropriately interactive. HEENT: Normocephalic, atraumatic. External ears without defect. Pupils equal, round, and reactive to light and accommodation. Anicteric sclerae, moist conjunctivae, and no lid lag. Oropharynx free of erythema and cobble stoning. Mucous membranes dry. Neck: Supple with full range of motion. No jugular venous distension. No bruits. No lymphadenopathy or thyromegaly. Cardiovascular: Regular rate and rhythm with no murmurs, rubs, or gallops appreciated Pulmonary: Clear to auscultation bilaterally with no crackles, wheezes, or rhonchi. Normal respiratory effort with no use of accessory muscles. Abdomen: Soft, nontender, nondistended, bowel sounds present. Ileostomy in right lower quadrant without erythema. No hepatosplenomegaly or masses appreciated. Extremities: No clubbing, cyanosis, or edema. Skin: Normal temperature, turgor, and texture; no rash, ulcers, or subcutaneous nodules appreciated. Neurological: Decreased muscle strength, tone, and bulk. Right sided extremity paralysis at baseline secondary to MS. Lower extremities flaccid. Paralyzed from the mid thoracic level down. Bedbound. Psychiatric: Normal mood and affect. Alert and oriented to person, place, and time. IVs and Medications Medications Reviewed: Medications were reviewed in detail Lab and Diagnostics Result Diagram: 02/03/17 0618 02/01/17 0715 Microbiology Blood cultures 2 pending. Urine culture pending. . X-Rays, CTs and MRIs X-RAY CHEST ONE VIEW, PORTABLE IMPRESSION: No acute pulmonary process. Dictated by: Margie Garcia M.D. on 01/31/2017 at 13:41 CT BRAIN WITHOUT CONTRAST IMPRESSION: 1. No acute intracranial abnormalities. Moderate periventricular and deep white matter chronic small vessel ischemic change. 2. Nonacute ischemic insult of the right motor cortex as before, corresponding with the left hand homunculus. Dictated by: Avelino Prabhakar M.D. on 01/31/2017 at 20:06 . 12-lead ECG EKG: Sinus rhythm, heart rate 74, normal axis, first-degree AV block, prolonged QTC at 469 ms, otherwise normal intervals, poor R-wave progression, no pathological Q waves or acute ischemic changes such as ST elevation or depression. . Assessment & Plan Radha Quezada is a 66-year-old female with a past medical history significant for diabetes mellitus type II, insulin using, MS, CVA's, LE DVT on warfarin, hypertension, recurrent UTI's and seizures who presented to [facility] emergency department via EMS following an episode of lightheadedness and weakness, found by EMS to by hypotensive. Weakness possibly multiple sclerosis exacerbation , present on admission. - Patient presented after lightheadedness and weakness. - CT brain did not reveal any acute intracranial abnormalities, as above. - Will treat acute UTI and wait to see if symptoms resolve prior to initiating steroids. If clinical symptoms do not improve would consider Solu-Medrol 1g for 3-5 days. - Continue Tizanidine 4 mg twice a day for muscle spasm. - F/u with outpatient Neurologist- Dr. Small Acute kidney injury on chronic kidney disease stage III, present on admission. Active. - Patient's baseline creatinine 1.2-1.4 in 09/2016. Initial creatinine 1.56. - Avoid nephrotoxins. - Ileostomy with Orozco catheter attached which is changed every two days. - c/w IVF, monitor kidney function Acute urinary tract infection, present on admission. Active. - Procalcitonin 0.22 in the context of CKD III. - Lactic acid normal at 1.8. -- Received ceftriaxone in the ED. Started Zosyn on 01/31 given history of Pseudomonas UTI's. Urine Cx shows Proteus and Morganella, both sensitive to cephalosporins. Will start PO antibiotic for another 7 days. Hypertension w/ presentation of hypotension, poa, active. - BP on the lower side - hold atenolol until can tolerate. Chronic wounds, present on admission. Active. - wound care evaluation. - Continue nystatin powder applied topically twice a day as needed to affected areas. Chronic problems: History of DVT on warfarin, chronic, stable - Initial INR therapeutic at 2.12. Patient is aware of risks of bleeding while on anticoagulation. - Continue warfarin with dosing per pharmacist. Hyperlipidemia, present on admission. Stable. - Continue atorvastatin 20 mg daily at bedtime. Diabetes mellitus type II, insulin using. - Hemoglobin A1c 6.5% in 08/2016. Repeat hemoglobin A1c pending. - medium-dose correctional scale insulin. - Continue Humulin-N -100 Depression, present on admission. Stable. - Continue paroxetine 40 mg daily. Allergic rhinitis, present on admission. Stable. - Continue Flonase one spray intranasally daily as needed for allergic rhinitis. Hypothyroidism, present on admission. Stable. - Continue levothyroxine 25 g daily. Asthma, not present on admission. Stable. - Continue albuterol nebs every 4 hours as needed for shortness of breath. Seizure disorder, present on admission. Stable. - Continue carbamazepine 200 mg twice a day. Chronic pain with opiate habituation, present on admission. Stable. - Continue oxycodone 5-325 mg 4 times a day as needed for pain. Chronic constipation, present on admission. Stable. - Continue Colace 100 mg twice a day and MiraLAX 17 g twice a day. Vitamin B12 deficiency anemia, present on admission. Stable. - The patient receives vitamin B12 IV 1000 mg monthly, however, she does not believe she has received one of these in several months. - Initial hemoglobin 10.9 with an MCV of 101.7. - vitamin B12 254, Folate 5.3 - Hemodynamically stable and no acute signs of bleeding. Morbid obesity, present on admission. - BMI 55.2. - Ordered physical therapy evaluation and treatment. DVT PROPHYLAXIS: Warfarin Code status: full code Disposition: Follow up with your primary doctor in 1 week to recheck urine for resolution of UTI. Follow up with Neurology as outpatient, Dr Small. Can start PO Antibiotics and continue for another 7 days until February 10. VTE Prophylaxis: Theraputic Anticoag with Warfarin, SCDs Resuscitation Status: CPR: Attempt Resuscitation Damon De Santiago MD Feb 03, 2017 07:12
--- NOTE | 2017-02-03 07:16 | PCM.DIMED ---
Damon De Santiago MD 02/03/17 0716: Discharge Instructions Date of Service Feb 03, 2017 Dates of Hospitalization Jan 31, 2017 at 19:30 Discharge Diagnosis Discharge Diagnosis Weakness possibly multiple sclerosis exacerbation , present on admission. Acute kidney injury on chronic kidney disease stage III, present on admission. Active. Acute urinary tract infection, present on admission. Active. Hypertension w/ presentation of hypotension, poa, active. Chronic wounds, present on admission. Active. Chronic problems: History of DVT on warfarin, chronic, stable Hyperlipidemia, present on admission. Stable. Diabetes mellitus type II, insulin using. Depression, present on admission. Stable. Allergic rhinitis, present on admission. Stable. . Hypothyroidism, present on admission. Stable. Asthma, not present on admission. Stable. Seizure disorder, present on admission. Stable. Chronic pain with opiate habituation, present on admission. Stable. Chronic constipation, present on admission. Stable. Vitamin B12 deficiency anemia, present on admission. Stable. Morbid obesity, present on admission. Medication Instructions Additional med instructions Can start PO Antibiotic and continue for another 7 days until February 10. Hold Atenolol for now. Can resume if Heart Rate is greater than 100. Do not take if blood pressures is less than 100/80. Call your provider Call your provider for: Fever or Chills Patient Instructions Patient Instructions Drink plenty of water to maintain hydration. Follow-up plan Follow up with your primary doctor in 1 week to recheck urine for resolution of UTI. Follow up with Neurology as outpatient, Dr Small. Follow-up Provider: Matilda Mendieta MD Follow-up with PCP in: 1 week Moriah Benitez MD 02/06/17 1058: Discharge Instructions Medication Instructions Additional med instructions NO MEDICATION WAS CHANGED, YOU DON'T NEED TO TAKE ANTIBIOTICS. Diet Discharge Diet: No restrictions Activity Discharge Activity: No restrictions Call your provider Call your provider for: Fever or Chills Patient Instructions Patient Instructions You were hospitalized with generalized weakness and possibility of urinary tract infection. You were treated supportively with antibiotics and IVF. Your condition improved significantly. Given low suspicion of ongoing urinary tract infection, your antibiotics were stopped during hospitalization. Please follow up with your doctor in 1week-2weeks Follow-up with PCP in: 1 week Damon De Santiago MD Feb 03, 2017 07:16 Moriah Benitez MD Feb 06, 2017 10:58
[2017-02-03] MEDS ORDERED: Piperacillin-Tazo 3.375 Gm Inj 3.375 GM in Dextrose 5% Minibag Plus 50 ML IV ONE (07:55)
[2017-02-03] MEDS: Insulin LISPRO 300 Unit/3 mL Inj SUBQ SCH ×4 (08:00→21:06)
[2017-02-03] MEDS: A & D 42.5 Gm Ointment TOPICAL SCH ×2 (08:30→19:41)
[2017-02-03] MEDS: Nystatin 100,000 Unit/Gm 15 Gm Powder TOPICAL SCH ×2 (08:30→19:41)
[2017-02-03] MEDS: Polyethylene Glycol (PEG) 17 Gm Powder PO SCH ×2 (08:30→19:42)
[2017-02-03] MEDS: PARoxetine 20 mg Tablet PO SCH (08:34)
[2017-02-03] MEDS: carBAMazepine 200 mg ER12 Tablet PO SCH ×2 (08:34→19:54)
--- NOTE | 2017-02-03 11:53 | PCM.PHAPRO ---
Progress Date of Service: Feb 03, 2017 Warfarin Dosing Date Feb 01-Feb 02-Feb 03-Jan INR 2.12 2.34 2.34 2.04 INR change 0.22 -0.3 Warf Dose 3MG 3MG 3MG 3mg Essence Yepez PharmD Feb 03, 2017 11:53
--- NOTE | 2017-02-03 14:24 | NUR ---
Social Work-initial assessment: data:See initial assessment. Pt is a 66 y/o female who was admitted on 01/31/17 for UTI per H&P. Pt's insurance is [facility] and [facility] and PCP is Matilda Mendieta MD. EMR reviewed. Pt's readmission score is 4. SW met with pt at bedside, SW role explained. Pt is alert and oriented x3. Pt resides at home with her son who provides 24/7 care. Pt uses a w/c at baseline and does not drive. Pt has history with both [facility] and [facility] and has no SNF history. Pt has no care home care insurance or VA benefits. SW discussed DPOA/ advanced directive, pt confirms this has been completed, SW encouraged a copy to be brought in. Pt's FRANCI CM is Zoe Sutton, updated clinicals faxed. PT saw pt and recommending HH services, SW awaiting MD orders. SW placed a call to son Lance, left message, awaiting a return call. Pt does not have capacity for self care, as she requires 24/7 assistance from her son. SW provided pt with discharge planning checklist and encouraged her to call with any questions,phone number provided on white board. Pt confirms her son will provide transport home. SW will continue to follow. Assessment:Pt who has 24/7 care at home. Plan:Pt to discharge home with son to provide 24/7 when medically stable. SW to await MD orders for HH Services. SW will continue to follow. CANDELARIO Curtis Addendum: 02/03/17 at 1429 by ESSENCE HERNÁNDEZ Amended: Links added. Addendum: 02/03/17 at 1513 by ESSENCE RAMAN SS SW received a call back from pt's son Lance, who confirms he is the 06/01 caregiver for pt at home. Son confirms that they will not need HH services at discharge. Son to provide transport home at discharge. GAVIOTA will continue to follow. Essence Raman,CANDELARIO
--- NOTE | 2017-02-03 14:27 | NUR ---
Inpatient Wound Nurse Patient seen for pressure ulcers on buttocks as well as yeast in skin folds. L buttock Stage 2 shearing pressure injury 3 cm L x 0.5 cm W x 0.1 cm D, beefy red wound bed, edges peeling, periwound erythemic and weepy in places. R buttock Stage 2 shearing pressure injury 2 cm L x 0.25 cm W x 0.1 cm D, beefy red wound bed, edges peeling, periwound erythemic and weepy in places. Deep tissue injury noted to R buttock, 2 cm L x 1 cm W, dark purple with puckering to center wound. 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 Linear opening under R breast and R panniculus, beefy red, small amount of drainage, surrounding erythema, blanchable. Son states that he has had excellent results regarding fungal control with mix of A&D ointment and Nystatin powder. All barrier ointment was cleansed from open areas and dried well. Nystatin/A&D combination was applied. A Mepilex sheet foam dressing was applied over sacrum since a bordered one will not adhere over A&D. Patient was instructed to side lie more often and HOB elevation >30 degrees should be avoided. HOB elevation >30 degrees greatly contributes to shear wounds. Patient was agreeable to lie on R side, stated that she cannot tolerate L side due to shoulder pain. She stated that although she would prefer to have HOB higher, she could tolerate this lower plane for the day. Per conversation with outpatient Wound Center, patient has chronic wounds and requires maintenance plan for fungus and pressure injuries. Plan for today is to use son's remedy and assess for efficacy tomorrow. If wounds and skin are not improved, plan on Nystatin ointment and additional dressings. CWON to follow daily.
--- NOTE | 2017-02-03 17:22 | PCM.PNMED ---
Subjective Date of Service Feb 03, 2017 Subjective Pt had no overnight events. Afebrile. Wound consult today. Exam Vital Signs Vital Sign - Last Date Time Temp Pulse Resp B/P Pulse Ox O2 Delivery O2 Flow Rate FiO2 02/03/17 17:07 36.9 90 20 155/73 99 Room Air Intake and Output 02/02/17 02/02/17 02/03/17 Cumulative From/Thru 15:00 23:00 07:00 01/31/17 13:14 - 02/03/17 06:09 Intake Total 1941 ml 903 ml 7295 ml Output Total 1725 ml 5625 ml Balance 216 ml 903 ml 1670 ml Intake Oral 836 ml 1776 ml IV Total 1105 ml 903 ml 5519 ml Output Urine Total 1725 ml 5625 ml # Bowel Movements 0 Exam General: Older female lying in bed and in no acute distress, well-developed, well-nourished, appropriately interactive. HEENT: Normocephalic, atraumatic. External ears without defect. Pupils equal, round, and reactive to light and accommodation. Anicteric sclerae, moist conjunctivae, and no lid lag. Oropharynx free of erythema and cobble stoning. Mucous membranes dry. Neck: Supple with full range of motion. No jugular venous distension. No bruits. No lymphadenopathy or thyromegaly. Cardiovascular: Regular rate and rhythm with no murmurs, rubs, or gallops appreciated Pulmonary: Clear to auscultation bilaterally with no crackles, wheezes, or rhonchi. Normal respiratory effort with no use of accessory muscles. Abdomen: Soft, nontender, nondistended, bowel sounds present. Ileostomy in right lower quadrant without erythema. No hepatosplenomegaly or masses appreciated. Extremities: No clubbing, cyanosis, or edema. Skin: pressure ulcers on buttocks as well as yeast in skin folds. Neurological: Decreased muscle strength, tone, and bulk. Right sided extremity paralysis at baseline secondary to MS. Lower extremities flaccid. Paralyzed from the mid thoracic level down. Bedbound. Psychiatric: Normal mood and affect. Alert and oriented to person, place, and time. IVs and Medications Medications Reviewed: Medications were reviewed in detail Lab and Diagnostics Result Diagram: 02/03/1761702/03/1718 Microbiology Blood cultures 2 pending. Urine culture pending. . X-Rays, CTs and MRIs X-RAY CHEST ONE VIEW, PORTABLE IMPRESSION: No acute pulmonary process. Dictated by: Margie Garcia M.D. on 01/31/2017 at 13:41 CT BRAIN WITHOUT CONTRAST IMPRESSION: 1. No acute intracranial abnormalities. Moderate periventricular and deep white matter chronic small vessel ischemic change. 2. Nonacute ischemic insult of the right motor cortex as before, corresponding with the left hand homunculus. Dictated by: Avelino Prabhakar M.D. on 01/31/2017 at 20:06 . 12-lead ECG EKG: Sinus rhythm, heart rate 74, normal axis, first-degree AV block, prolonged QTC at 469 ms, otherwise normal intervals, poor R-wave progression, no pathological Q waves or acute ischemic changes such as ST elevation or depression. . Assessment & Plan Radha Quezada is a 66-year-old female with a past medical history significant for diabetes mellitus type II, insulin using, MS, CVA's, LE DVT on warfarin, hypertension, recurrent UTI's and seizures who presented to [facility] emergency department via EMS following an episode of lightheadedness and weakness, found by EMS to by hypotensive being tx for UTI and ARGENIS on CKD. Weakness possibly multiple sclerosis exacerbation , present on admission. - Patient presented after lightheadedness and weakness. - CT brain did not reveal any acute intracranial abnormalities, as above. - Will treat acute UTI and wait to see if symptoms resolve prior to initiating steroids. If clinical symptoms do not improve would consider Solu-Medrol 1g for 3-5 days. - Continue Tizanidine 4 mg twice a day for muscle spasm. - F/u with outpatient Neurologist- Dr. Small Acute kidney injury on chronic kidney disease stage III, present on admission. Active. - Patient's baseline creatinine 1.2-1.4 in 09/2016. Initial creatinine 1.56. - Avoid nephrotoxins. - Ileostomy with Orozco catheter attached which is changed every two days. - c/w IVF, monitor kidney function Acute urinary tract infection, present on admission. Active. - Procalcitonin 0.22 in the context of CKD III. - Lactic acid normal at 1.8. - Received ceftriaxone in the ED. Started Zosyn on 01/31 given history of Pseudomonas UTI's. Urine Cx shows Proteus and Morganella, both sensitive to cephalosporins. - 8/21 changed to po antibiotics Ceftin and Ciprofloxacin. Hypertension, poa, active. - BP on the lower side - resume atenolol 02/04. Stage 2 pressure ulcers on bilateral buttocks, present on admission. Active. 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 - wound consult 02/03 note- per conversation with outpatient Wound Center, patient has chronic wounds and requires maintenance plan for fungus and pressure injuries. Plan for today is to use son's remedy and assess for efficacy tomorrow. If wounds and skin are not improved, plan on Nystatin ointment and additional dressings. CWON to follow daily. - Will need to follow up at Wound Center upon discharge. Chronic problems: History of DVT on warfarin, chronic, stable - Initial INR therapeutic at 2.12. Patient is aware of risks of bleeding while on anticoagulation. - Continue warfarin with dosing per pharmacist. Hyperlipidemia, present on admission. Stable. - Continue atorvastatin 20 mg daily at bedtime. Diabetes mellitus type II, insulin using. - Hemoglobin A1c 6.5% in 08/2016. Repeat hemoglobin A1c pending. - medium-dose correctional scale insulin. - Continue Humulin-N -100 Depression, present on admission. Stable. - Continue paroxetine 40 mg daily. Allergic rhinitis, present on admission. Stable. - Continue Flonase one spray intranasally daily as needed for allergic rhinitis. Hypothyroidism, present on admission. Stable. - Continue levothyroxine 25 g daily. Asthma, not present on admission. Stable. - Continue albuterol nebs every 4 hours as needed for shortness of breath. Seizure disorder, present on admission. Stable. - Continue carbamazepine 200 mg twice a day. Chronic pain with opiate habituation, present on admission. Stable. - Continue oxycodone 5-325 mg 4 times a day as needed for pain. Chronic constipation, present on admission. Stable. - Continue Colace 100 mg twice a day and MiraLAX 17 g twice a day. Vitamin B12 deficiency anemia, present on admission. Stable. - The patient receives vitamin B12 IV 1000 mg monthly, however, she does not believe she has received one of these in several months. - Initial hemoglobin 10.9 with an MCV of 101.7. - vitamin B12 254, Folate 5.3 - Hemodynamically stable and no acute signs of bleeding. Morbid obesity, present on admission. - BMI 55.2. - Ordered physical therapy evaluation and treatment. DVT PROPHYLAXIS: Warfarin Code status: full code Disposition: Follow up with your primary doctor in 1 week to recheck urine for resolution of UTI. Follow up with Neurology as outpatient, Dr Small. Can start PO Antibiotics and continue for another 7 days VTE Prophylaxis: Theraputic Anticoag with Warfarin, SCDs Resuscitation Status: CPR: Attempt Resuscitation Damon De Santiago MD Feb 03, 2017 17:21
--- NOTE | 2017-02-03 19:13 | NUR ---
Pain Pt complained of leg pain 11/23 through out the day, has declined offers of pain medication r/t concern about becoming addicted. This RN educated pt regarding pain management and options. Pt agreed to try PO Tylenol for discomfort. Reassessment of pain - 08/23, pt reports is feeling more comfortable. Call light in reach, will continue to monitor.
[2017-02-03] MEDS: Insulin Human NPH 100 Unit/mL Syringe SUBQ SCH (21:06)
[2017-02-04 00:36] VITALS: BP 126/73; PULSE 79; RESP 20; O2SAT 96
[2017-02-04 05:14] LABS: BASOPHILS % (AUTO) 0.7 % (0-3); EOSINOPHILS % (AUTO) 5.6 % (0-5); MONOCYTES % (AUTO) 9.6 % (4-12); Mean Corpuscular Hemoglobin 31.2 pg (27.0-35.0); Mean Corpuscular Volume 101.6 fL (81-100); NEUTROPHILS % (AUTO) 41.4 % (40-74); Platelet Count 206 bil/L (150-400)
[2017-02-04 05:27] LABS: INR 1.82 ratio
[2017-02-04] MEDS: 0.9% Sodium Chloride 1,000 ML IV SCH ×2 (05:43→18:41)
[2017-02-04 05:50] VITALS: BP 126/73; PULSE 81; RESP 20; O2SAT 98
[2017-02-04] MEDS: Insulin LISPRO 300 Unit/3 mL Inj SUBQ SCH ×4 (07:45→20:37)
[2017-02-04] MEDS: Polyethylene Glycol (PEG) 17 Gm Powder PO SCH ×2 (10:04→20:21)
[2017-02-04] MEDS: carBAMazepine 200 mg ER12 Tablet PO SCH ×2 (10:09→20:32)
[2017-02-04] MEDS: PARoxetine 20 mg Tablet PO SCH (10:09)
[2017-02-04] MEDS: Nystatin 100,000 Unit/Gm 15 Gm Powder TOPICAL SCH ×2 (10:10→22:19)
[2017-02-04] MEDS: A & D 42.5 Gm Ointment TOPICAL SCH ×2 (10:12→20:21)
--- NOTE | 2017-02-04 10:36 | NUR ---
Social Work-readiness for discharge/multidisciplinary rounds: data:EMR reviewed. Pt is on day 4 of hospitalization for UTI per H&P. Pt is likely medically stable later today or tomorrow. Pt has 24/7 care at home from son. Wound care to see pt today. Son declining any HH services and no MD orders. Pt's son to provide transport home at discharge. No anticipated discharge needs. SW will continue to follow if needs arise. Assessment:Pt who is independent at baseline. Plan:Pt to discharge home when medically stable with 24/7 care with son. No anticipated discharge needs. SW will continue to follow if needs arise. CANDELARIO Curtis
[2017-02-04 10:42] VITALS: PULSE 81
--- NOTE | 2017-02-04 11:09 | PCM.PHAPRO ---
Progress Date of Service: Feb 04, 2017 Date Feb 01-Feb 02-Feb 03-Feb 04-Jan INR 2.12 2.34 2.34 2.04 1.82 INR change 0.22 -0.3 -0.22 Warf Dose 3MG 3MG 3MG 3mg 6mg Essence Yepez PharmD Feb 04, 2017 11:09
[2017-02-04 14:28] VITALS: BP 156/82; PULSE 82; RESP 16; O2SAT 98
--- NOTE | 2017-02-04 15:18 | NUR ---
Inpatient Wound Nurse Patient seen for pressure ulcers on buttocks and yeast/skin folds. Bilateral buttocks shearing pressure injuries unchanged from yesterdays assessment. Use of son's recommendation of A&D ointment mixed with Nystatin powder showed no improvement in periwound skin or perineal rash. Son was agreeable to trial of Covidien sacral dressing, stated that Medline Optifoam Gentle and Mepilex are too damaging for patient's skin. Area was cleansed, dried well, the Nystatin ointment applied and rubbed in well. Covidien sacral dressing was applied with adhesive border at outer edge of Nystatin ointment with intention that it would not interfere with adhesion. Son's recommendation of A&D ointment mixed with Nystatin powder to groin, perineum and under breasts showed no improvement in yeast rash. Linear openings under L and R breast and L and R panniculus have increased, beefy red, small amount of drainage, surrounding erythema, blanchable. All areas were cleansed and dried well, then Nystatin ointment applied and sheets of Mepilex foam applied in skin folds to wick moisture. Son shared that he feels room temperature is too warm, bedding is not the same as home, and tweaks in patient's environment and setting results in yeast exacerbation. He was well-versed in all strategies that could be recommended but admitted he had not tried Nystatin ointment. Benefits of ointment were reviewed, such as ability to rub it in and no inactivation with sweat as powder is, as well as longer active time and half-life. Son understands importance of aeration and consistent product use and is open to trying new suggestions. Importance of keep HOB <30 degrees was reviewed. Patient instructed that if she does need to be upright, she should be completely upright so that she is seated on ischial tuberosities and not sacrum. Both patient and son agreeable to suggestions and stated intention. Although son is very detailed regarding his mother's care and appears to have some caregiver-fatigue related stress, he does not feel home health would be beneficial at this time. CWON to follow daily.
--- NOTE | 2017-02-04 16:52 | NUR ---
Social Work-readiness for discharge: Data:EMR reviewed. Pt is on day 4 of hospitalization for UTI per H&P. Pt is not medically stable anticipate 1-2 more days. MD order received for HH services RN and PT. SW followed up with pt at bedside, SW role explained. Pt states she would like to leave this decision up to her son. SW placed a call to son Lance who states that at this time he feels like he will not need any HH service assistance at home. Son confirms that he feels confident in his ability to care for his mom as long as she is not on any IV medication. Son has concerns about pt's B12 level and getting shot in the hospital, SW passed this information along to RN at bedside. Pt's son is pt's 24/7 [facility] caregiver. Pt's son will plan on providing transport at discharge. SW will continue to follow. Assessment:Pt who has 24/7 care at home. Plan:Pt to discharge home with son to provide 24/7 care at home. Pt's son declining HH Services at this time. SW will continue to follow. CANDELARIO Curtis
--- NOTE | 2017-02-04 17:38 | NUR ---
SKIN / PAIN Patient's skin cleaned and dried in all areas of possible yeast and breakdown including under breasts, abdominal folds, groin and sacral area. Per seo strategist skin was dried and nystatin lotion applied. Mepilex foam applied under folds and breasts. Sacral pressure wound checked and assessed by wound RN. Positioning slightly painful for patient who reports intensity of 7\10 on right side. PO acetaminophen, pillows and repositioning is effective in reducing pain to tolerable 4-5/10 range. Patient is drowsy but awakens to voice. Bed low and locked, call light in reach, bed alarm on for safety, care and frequent rounding ongoing.
--- NOTE | 2017-02-04 17:42 | PCM.PNMED ---
Subjective Date of Service Feb 04, 2017 Subjective No overnight events. Exam Vital Signs Vital Sign - Last Date Time Temp Pulse Resp B/P Pulse Ox O2 Delivery O2 Flow Rate FiO2 02/04/17 14:28 36.4 82 16 156/82 98 Room Air Intake and Output 02/03/17 02/03/17 02/04/17 Cumulative From/Thru 15:00 23:00 07:00 01/31/17 13:14 - 02/04/17 05:58 Intake Total 400 ml 1988 ml 600 ml 53435 ml Output Total 1300 ml 1700 ml 1600 ml 96819 ml Balance -900 ml 288 ml -1000 ml 58 ml Intake Oral 400 ml 874 ml 600 ml 3650 ml IV Total 1114 ml 6633 ml Output Urine Total 1300 ml 1700 ml 1600 ml 34306 ml # Bowel Movements 0 Exam General: Older female lying in bed and in no acute distress, well-developed, well-nourished, appropriately interactive. HEENT: Normocephalic, atraumatic. External ears without defect. Pupils equal, round, and reactive to light and accommodation. Anicteric sclerae, moist conjunctivae, and no lid lag. Oropharynx free of erythema and cobble stoning. Mucous membranes dry. Neck: Supple with full range of motion. No jugular venous distension. No bruits. No lymphadenopathy or thyromegaly. Cardiovascular: Regular rate and rhythm with no murmurs, rubs, or gallops appreciated Pulmonary: Clear to auscultation bilaterally with no crackles, wheezes, or rhonchi. Normal respiratory effort with no use of accessory muscles. Abdomen: Soft, nontender, nondistended, bowel sounds present. Ileostomy in right lower quadrant without erythema. No hepatosplenomegaly or masses appreciated. Extremities: No clubbing, cyanosis, or edema. Skin: pressure ulcers on buttocks as well as yeast in skin folds. Neurological: Decreased muscle strength, tone, and bulk. Right sided extremity paralysis at baseline secondary to MS. Lower extremities flaccid. Paralyzed from the mid thoracic level down. Bedbound. Psychiatric: Normal mood and affect. Alert and oriented to person, place, and time. IVs and Medications Medications Reviewed: Medications were reviewed in detail Lab and Diagnostics Result Diagram: 02/04/17 0500 02/04/17 0500 Microbiology Blood cultures 2 pending. Urine culture pending. . X-Rays, CTs and MRIs X-RAY CHEST ONE VIEW, PORTABLE IMPRESSION: No acute pulmonary process. Dictated by: Margie Garcia M.D. on 01/31/2017 at 13:41 CT BRAIN WITHOUT CONTRAST IMPRESSION: 1. No acute intracranial abnormalities. Moderate periventricular and deep white matter chronic small vessel ischemic change. 2. Nonacute ischemic insult of the right motor cortex as before, corresponding with the left hand homunculus. Dictated by: Avelino Prahbakar M.D. on 01/31/2017 at 20:06 . 12-lead ECG EKG: Sinus rhythm, heart rate 74, normal axis, first-degree AV block, prolonged QTC at 469 ms, otherwise normal intervals, poor R-wave progression, no pathological Q waves or acute ischemic changes such as ST elevation or depression. . Assessment & Plan Radha Quezada is a 66-year-old female with a past medical history significant for diabetes mellitus type II, insulin using, MS, CVA's, LE DVT on warfarin, hypertension, recurrent UTI's and seizures who presented to [facility] emergency department via EMS following an episode of lightheadedness and weakness, found by EMS to by hypotensive being tx for UTI and ARGENIS on CKD. Weakness possibly multiple sclerosis exacerbation , present on admission. - Patient presented after lightheadedness and weakness. - CT brain did not reveal any acute intracranial abnormalities, as above. - Will treat acute UTI and wait to see if symptoms resolve prior to initiating steroids. If clinical symptoms do not improve would consider Solu-Medrol 1g for 3-5 days. - Continue Tizanidine 4 mg twice a day for muscle spasm. - F/u with outpatient Neurologist- Dr. Small Acute kidney injury on chronic kidney disease stage III, present on admission. Active. - Patient's baseline creatinine 1.2-1.4 in 09/2016. Initial creatinine 1.56. - Avoid nephrotoxins. - Ileostomy with Orozco catheter attached which is changed every two days. - c/w IVF, monitor kidney function Acute urinary tract infection, present on admission. Active. - Procalcitonin 0.22 in the context of CKD III. - Lactic acid normal at 1.8. - Received ceftriaxone in the ED. Started Zosyn on 01/31 given history of Pseudomonas UTI's. Urine Cx shows Proteus and Morganella, both sensitive to cephalosporins. - 8/21 changed to po antibiotics Ceftin and Ciprofloxacin. Continue for total 7 days. Hypertension, poa, active. - BP on the lower side - resume atenolol 02/04. Stage 2 pressure ulcers on bilateral buttocks, present on admission. Active. 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 - wound consult 02/03 note- per conversation with outpatient Wound Center, patient has chronic wounds and requires maintenance plan for fungus and pressure injuries. Plan for today is to use son's remedy and assess for efficacy tomorrow. If wounds and skin are not improved, plan on Nystatin ointment and additional dressings. CWON to follow daily. - Will need to follow up at Wound Center upon discharge. - Social to arrange Home Health Wound Care 3/week. Chronic problems: History of DVT on warfarin, chronic, stable - Initial INR therapeutic at 2.12. Patient is aware of risks of bleeding while on anticoagulation. - Continue warfarin with dosing per pharmacist. Hyperlipidemia, present on admission. Stable. - Continue atorvastatin 20 mg daily at bedtime. Diabetes mellitus type II, insulin using. - Hemoglobin A1c 6.5% in 08/2016. Repeat hemoglobin A1c pending. - medium-dose correctional scale insulin. - Continue Humulin-N -100 Depression, present on admission. Stable. - Continue paroxetine 40 mg daily. Allergic rhinitis, present on admission. Stable. - Continue Flonase one spray intranasally daily as needed for allergic rhinitis. Hypothyroidism, present on admission. Stable. - Continue levothyroxine 25 g daily. Asthma, not present on admission. Stable. - Continue albuterol nebs every 4 hours as needed for shortness of breath. Seizure disorder, present on admission. Stable. - Continue carbamazepine 200 mg twice a day. Chronic pain with opiate habituation, present on admission. Stable. - Continue oxycodone 5-325 mg 4 times a day as needed for pain. Chronic constipation, present on admission. Stable. - Continue Colace 100 mg twice a day and MiraLAX 17 g twice a day. Vitamin B12 deficiency anemia, present on admission. Stable. - The patient receives vitamin B12 IV 1000 mg monthly, however, she does not believe she has received one of these in several months. - Initial hemoglobin 10.9 with an MCV of 101.7. - vitamin B12 254, Folate 5.3 - Hemodynamically stable and no acute signs of bleeding. Morbid obesity, present on admission. - BMI 55.2. - Ordered physical therapy evaluation and treatment. DVT PROPHYLAXIS: Warfarin Code status: full code Disposition: Likely discharge 02/05. Social to arrange Home PT and Home Health Wound Care 3/week. Follow up with your primary doctor in 1 week to recheck urine for resolution of UTI. Follow up with Neurology as outpatient, Dr Small. Can start PO Antibiotics and continue for total 7 days VTE Prophylaxis: Theraputic Anticoag with Warfarin, SCDs Resuscitation Status: CPR: Attempt Resuscitation Damon De Santiago MD Feb 04, 2017 17:42
[2017-02-04 19:44] VITALS: BP 158/81; PULSE 79; RESP 16; O2SAT 97
[2017-02-04] MEDS: Insulin Human NPH 100 Unit/mL Syringe SUBQ SCH (20:35)
[2017-02-05] VITALS (7 sets, daily range): BP systolic 140–175; BP diastolic 74–82; PULSE 74–86; RESP 16–18; O2SAT 95–99
[2017-02-05] MEDS: 0.9% Sodium Chloride 1,000 ML IV SCH ×2 (05:33→18:45)
[2017-02-05 06:09] LABS: INR 1.65 ratio
[2017-02-05] MEDS: Insulin LISPRO 300 Unit/3 mL Inj SUBQ SCH ×4 (07:42→22:22)
[2017-02-05] MEDS: Polyethylene Glycol (PEG) 17 Gm Powder PO SCH ×2 (08:30→19:15)
[2017-02-05] MEDS: A & D 42.5 Gm Ointment TOPICAL SCH ×2 (08:30→19:16)
[2017-02-05] MEDS: Nystatin 100,000 Unit/Gm 15 Gm Powder TOPICAL SCH ×3 (08:30→20:56)
[2017-02-05] MEDS: PARoxetine 20 mg Tablet PO SCH (09:16)
[2017-02-05] MEDS: carBAMazepine 200 mg ER12 Tablet PO SCH ×2 (09:25→20:55)
[2017-02-05 09:33] LABS: BASOPHILS % (AUTO) 0.3 % (0-3); EOSINOPHILS % (AUTO) 4.6 % (0-5); MONOCYTES % (AUTO) 10.7 % (4-12); Mean Corpuscular Hemoglobin 30.9 pg (27.0-35.0); Mean Corpuscular Volume 103.4 fL (81-100); Platelet Count 222 bil/L (150-400)
--- NOTE | 2017-02-05 11:19 | NUR ---
Inpatient Wound Nurse Patient seen in follow-up for pressure ulcers on buttocks and yeast/skin folds. Bilateral buttocks shearing pressure injuries continue unchanged from yesterday's assessment. Periwound fungal rash is improved with much less erythema and fewer satellite lesions. Distinct border has faded minimally but is improved. Area was cleansed, blotted dry, and Nystatin ointment applied, then covered with Covidien sacral dressing, all areas with ointment contained within dressing border. 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 Area under L breast continues with denuded area but periwound erythema is improved. CWON RN cleansed and dried all areas well, then applied Nystatin ointment and sheets of Mepilex foam to wick moisture. Nursing staff to continue hygiene of skin folds daily. CWON will address pressure injuries daily.
--- NOTE | 2017-02-05 12:45 | PCM.PHAPRO ---
Progress Warfarin Maintenance Dosing Indication: DVT INR goal: 2-3 Home dose: 3mg Tu,F and 6mg all other days Date Feb 01-Feb 02-Feb 03-Feb 04-Feb 05-Jan INR 2.12 2.34 2.34 2.04 1.82 1.65 INR change 0.22 -0.3 -0.22 -0.17 Warf Dose 3MG 3MG 3MG 3mg 6mg 6MG Today's dosing we will resume home schedule 6mg due to subtherapeutic INR. Pharmacy will continue to monitor INR and dose warfarin accordingly. Estelle Irwin Pharm.D Feb 05, 2017 12:45
--- NOTE | 2017-02-05 14:17 | PCM.PNMED ---
Subjective Date of Service Feb 05, 2017 Subjective pt is eating well with n/v, remained afebrile, feels okay, pt declined HH as son can provide care cipro/cefuroxim stopped today given low suspicion for ongoing UTI after discussion with Exam Vital Signs Vital Sign - Last Date Time Temp Pulse Resp B/P Pulse Ox O2 Delivery O2 Flow Rate FiO2 02/05/17 10:17 36.6 86 16 175/81 98 Room Air Intake and Output 02/04/17 02/04/17 02/05/17 Cumulative From/Thru 15:00 23:00 07:00 01/31/17 13:14 - 02/05/17 06:00 Intake Total 2327 ml 1281 ml 45950 ml Output Total 1200 ml 1200 ml 30319 ml Balance 1127 ml 81 ml 1266 ml Intake Oral 1243 ml 618 ml 5511 ml IV Total 1084 ml 663 ml 8380 ml Output Urine Total 1200 ml 1200 ml 16962 ml # Bowel Movements 0 0 Exam NAD, comfortably laying down on the bed no JVD, MMM, no LAD RRR, nl s1, s2 no mrg CTAB, no w,c S,ND,NT,normoactive BS+ Flaccid BLE, warm, IVs and Medications Medications Reviewed: Medications were reviewed in detail Lab and Diagnostics Result Diagram: 02/05/17 0505 02/05/17 0505 Microbiology Blood cultures 2 pending. Urine culture pending. . X-Rays, CTs and MRIs X-RAY CHEST ONE VIEW, PORTABLE IMPRESSION: No acute pulmonary process. Dictated by: Margie Garcia M.D. on 01/31/2017 at 13:41 CT BRAIN WITHOUT CONTRAST IMPRESSION: 1. No acute intracranial abnormalities. Moderate periventricular and deep white matter chronic small vessel ischemic change. 2. Nonacute ischemic insult of the right motor cortex as before, corresponding with the left hand homunculus. Dictated by: Avelino Prabhakar M.D. on 01/31/2017 at 20:06 . 12-lead ECG EKG: Sinus rhythm, heart rate 74, normal axis, first-degree AV block, prolonged QTC at 469 ms, otherwise normal intervals, poor R-wave progression, no pathological Q waves or acute ischemic changes such as ST elevation or depression. . Assessment & Plan Radha Quezada is a 66-year-old female with a past medical history significant for diabetes mellitus type II, insulin using, MS, CVA's, LE DVT on warfarin, hypertension, recurrent UTI's and seizures who presented to [facility] emergency department via EMS following an episode of lightheadedness and weakness, found by EMS to by hypotensive being tx for UTI and ARGENIS on CKD. Weakness possibly multiple sclerosis exacerbation , present on admission. - Patient presented after lightheadedness and weakness. - CT brain did not reveal any acute intracranial abnormalities, as above. - Will treat acute UTI and wait to see if symptoms resolve prior to initiating steroids. If clinical symptoms do not improve would consider Solu-Medrol 1g for 3-5 days. - Continue Tizanidine 4 mg twice a day for muscle spasm. - F/u with outpatient Neurologist- Dr. Small Bacteriuria in the setting of Urostomy, POA, Procalcitonin 0.22, Lactic acid normal at 1.8. pt received ceftriaxone in the ED. Started Zosyn on 01/31 given history of Pseudomonas UTI's. Urine Cx shows Proteus and Morganella, both sensitive to cephalosporins. 02/03 changed to po antibiotics Ceftin and Ciprofloxacin, However, Last UCX grew again Pseudomonas, R to Cipro. -Given stable clinical condition, possible asymptomatic bacteriuria with urostomy, after discussion with , decided to stop all abx today -will monitor one more day without abx Hypertension, poa, active. - BP 140-150s, resumed atenolol 02/04, continue for now Stage 2 pressure ulcers on bilateral buttocks, present on admission. Active. 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 - wound consult 02/03 note- per conversation with outpatient Wound Center, patient has chronic wounds and requires maintenance plan for fungus and pressure injuries. Plan for today is to use son's remedy and assess for efficacy tomorrow. If wounds and skin are not improved, plan on Nystatin ointment and additional dressings. CWON to follow daily. - Will need to follow up at Wound Center upon discharge. - Social to arrange Home Health Wound Care 3/week. Chronic, stable, resolved Acute kidney injury on chronic kidney disease stage III, present on admission. Active. Patient's baseline creatinine 1.2-1.4 in 09/2016. Initial creatinine 1.56. -Renal function further improving, close to baseline. - Avoid nephrotoxins. - Ileostomy with Orozco catheter attached which is changed every two days. - c/w IVF, monitor kidney function History of DVT on warfarin, chronic, stable - Initial INR therapeutic at 2.12. Patient is aware of risks of bleeding while on anticoagulation. - Continue warfarin with dosing per pharmacist. Hyperlipidemia, present on admission. Stable. - Continue atorvastatin 20 mg daily at bedtime. Diabetes mellitus type II, insulin using. - Hemoglobin A1c 6.5% in 08/2016. Repeat hemoglobin A1c pending. - medium-dose correctional scale insulin. - Continue Humulin-N -100 Depression, present on admission. Stable. - Continue paroxetine 40 mg daily. Allergic rhinitis, present on admission. Stable. - Continue Flonase one spray intranasally daily as needed for allergic rhinitis. Hypothyroidism, present on admission. Stable. - Continue levothyroxine 25 g daily. Asthma, not present on admission. Stable. - Continue albuterol nebs every 4 hours as needed for shortness of breath. Seizure disorder, present on admission. Stable. - Continue carbamazepine 200 mg twice a day. Chronic pain with opiate habituation, present on admission. Stable. - Continue oxycodone 5-325 mg 4 times a day as needed for pain. Chronic constipation, present on admission. Stable. - Continue Colace 100 mg twice a day and MiraLAX 17 g twice a day. Vitamin B12 deficiency anemia, present on admission. Stable. - The patient receives vitamin B12 IV 1000 mg monthly, however, she does not believe she has received one of these in several months. - Initial hemoglobin 10.9 with an MCV of 101.7. - vitamin B12 254, Folate 5.3 - Hemodynamically stable and no acute signs of bleeding. Morbid obesity, present on admission. - BMI 55.2. - Ordered physical therapy evaluation and treatment. DVT PROPHYLAXIS: Warfarin Code status: full code Disposition: d/c tomorrow, Social to arrange Home PT and Home Health Wound Care 3/week. Follow up with your primary doctor in 1 week to recheck urine for resolution of UTI. Follow up with Neurology as outpatient, Dr Small. VTE Prophylaxis: Theraputic Anticoag with Warfarin, SCDs Resuscitation Status: CPR: Attempt Resuscitation Time spent 35min Moriah Benitez MD Feb 05, 2017 14:17
--- NOTE | 2017-02-05 18:33 | NUR ---
BM Pt reports struggles with chronic constipation, had large loose bowel movement. [place] area cleaned and patted dry, minimally soiled Covidien pad replaced over sacral area. Pt repositioned R side, with pillows. Call light in reach, will continue to monitor
[2017-02-05] MEDS: Insulin Human NPH 100 Unit/mL Syringe SUBQ SCH (22:23)
[2017-02-06 04:55] VITALS: BP 140/70; PULSE 78; RESP 18; O2SAT 98
--- NOTE | 2017-02-06 06:41 | NUR ---
BM Continued with liquid incontinent bowels x5 this shift. Bowel medications held this shift. Soiled dressing replaced.
[2017-02-06 07:00] LABS: BASOPHILS % (AUTO) 0.2 % (0-3); EOSINOPHILS % (AUTO) 4.3 % (0-5); MONOCYTES % (AUTO) 11.2 % (4-12); Mean Corpuscular Hemoglobin 31.3 pg (27.0-35.0); Mean Corpuscular Volume 102.2 fL (81-100); NEUTROPHILS % (AUTO) 55.4 % (40-74); Platelet Count 210 bil/L (150-400)
[2017-02-06 07:04] LABS: INR 1.72 ratio
[2017-02-06] MEDS: Insulin LISPRO 300 Unit/3 mL Inj SUBQ SCH ×2 (08:00→12:50)
[2017-02-06] MEDS: PARoxetine 20 mg Tablet PO SCH (08:07)
[2017-02-06] MEDS: Nystatin 100,000 Unit/Gm 15 Gm Powder TOPICAL SCH (08:07)
[2017-02-06] MEDS: Polyethylene Glycol (PEG) 17 Gm Powder PO SCH (08:10)
[2017-02-06] MEDS: carBAMazepine 200 mg ER12 Tablet PO SCH (08:12)
[2017-02-06 09:52] VITALS: BP 124/72; PULSE 87; RESP 18; O2SAT 98
[2017-02-06] MEDS: 0.9% Sodium Chloride 1,000 ML IV SCH (10:25)
--- NOTE | 2017-02-06 11:01 | PCM.DIMED ---
Discharge Instructions Date of Service Feb 06, 2017 Dates of Hospitalization Jan 31, 2017 at 19:30 Discharge Diagnosis Discharge Diagnosis acute dx Weakness possibly multiple sclerosis exacerbation Acute kidney injury on chronic kidney disease stage III, probable asymptomatic bacteriuria Hypertension w/ presentation of hypotension Chronic pressure ulcers Chronic dx History of DVT on warfarin, Hyperlipidemia Diabetes mellitus type II, insulin using. Depression Allergic rhinitis Hypothyroidism Asthma Seizure disorder Chronic pain with opiate habituation Chronic constipation Vitamin B12 deficiency anemia Morbid obesity Medication Instructions Additional med instructions NO MEDICATION WAS CHANGED, YOU DON'T NEED TO TAKE ANTIBIOTICS. Diet Discharge Diet: No restrictions Activity Discharge Activity: No restrictions Call your provider Call your provider for: Fever or Chills Patient Instructions Patient Instructions Drink plenty of water to maintain hydration. Follow-up plan You were hospitalized with generalized weakness and possibility of urinary tract infection. You were treated supportively with antibiotics and IVF. Your condition improved significantly. Given low suspicion of ongoing urinary tract infection, your antibiotics were stopped during hospitalization. Please follow up with your doctor in 1week-2weeks please follow up with as scheduled Follow-up Provider: Matilda Mendieta MD Follow-up with PCP in: 1 week Provider: Juancarlos Small MD Follow-up in: 4 weeks Moriah Benitez MD Feb 06, 2017 11:00
--- NOTE | 2017-02-06 13:18 | NUR ---
Social Work-discharge: Data:EMR reviewed. Pt is on day 6 of hospitalization for UTI per H&P. Pt is medically stable for discharge. Pt's son provides 24/7 care at home for pt. Pt's son is [facility] caregiver. SW discussed HH Services with son and he has declined stating he feels like he can manage pt's care at home. Pt's son to provide transport home. No other SW needs identified. All updated and agreeable to plan. Assessment:Pt who has 24/7 care at home. Plan:Pt to discharge home today via POV. pt's son provides 24/7 care at home. Pt's son declining HH services. No other SW needs identified. All updated and agreeable to plan. CANDELARIO Curtis
--- NOTE | 2017-02-06 14:34 | PCM.DC.MED ---
Discharge Summary Date of Service Feb 06, 2017 Dates of Hospitalization Date of Hospital Admission Jan 31, 2017 at 19:30 Date of Discharge: Feb 06, 2017 Providers: Admitting Physician: Blanca Gregory DO Primary Care Physician: Matilda Mendieta MD Attending Physician: Moriah Benitez MD Diagnosis at Time of Discharge Diagnosis at Time of Discharge acute dx Weakness possibly multiple sclerosis exacerbation Acute kidney injury on chronic kidney disease stage III, probable asymptomatic bacteriuria Hypertension w/ presentation of hypotension Chronic pressure ulcers Chronic dx History of DVT on warfarin, Hyperlipidemia Diabetes mellitus type II, insulin using. Depression Allergic rhinitis Hypothyroidism Asthma Seizure disorder Chronic pain with opiate habituation Chronic constipation Vitamin B12 deficiency anemia Morbid obesity Procedures XRay, CTs & MRIs X-RAY CHEST ONE VIEW, PORTABLE IMPRESSION: No acute pulmonary process. Dictated by: Margie Garcia M.D. on 01/31/2017 at 13:41 CT BRAIN WITHOUT CONTRAST IMPRESSION: 1. No acute intracranial abnormalities. Moderate periventricular and deep white matter chronic small vessel ischemic change. 2. Nonacute ischemic insult of the right motor cortex as before, corresponding with the left hand homunculus. Dictated by: Avelino Prabhakar M.D. on 01/31/2017 at 20:06 . ECG 12 Lead EKG: Sinus rhythm, heart rate 74, normal axis, first-degree AV block, prolonged QTC at 469 ms, otherwise normal intervals, poor R-wave progression, no pathological Q waves or acute ischemic changes such as ST elevation or depression. . Brief History HPI obtained by on 01/31 Radha Quezada is a 66-year-old female with a past medical history significant for diabetes mellitus type II, insulin using, MS, CVA's, LE DVT on warfarin, hypertension, recurrent pseudomonas UTI's and seizures who presented to [facility] emergency department via EMS following a lightheadedness and weakness. The patient pressed her [facility] button after she was unable to lift her self up while in bed. She denies syncope or near syncope. She does endorse lightheadedness, dizziness and weakness. EMS report states that the patient was hypotensive at the scene. The patient felt mildly dizzy the last several days but believes her symptoms today were an exacerbation of her MS. She does not currently take any steroids for her MS. she denies acute vision changes, sore throat, chest pain, palpitations cough, shortness of breath, abdominal pain, nausea, vomiting, fever, chills, unilateral extremity weakness from baseline or diarrhea. She does endorse minor headache, chronic nasal congestion, and chronic constipation. Vital signs in the ER: Temperature 36.4. Pulse 75. Respiratory rate 21. Blood pressure 117/49. Pulse ox 100% on room air. She was given in the ED 500 mL of NS and ceftriaxone IV [address] g [address] Mendieta. Neurologist is Dr. Small. . Hospital Course Radha Quezada is a 66-year-old female with a past medical history significant for diabetes mellitus type II, insulin using, MS, CVA's, LE DVT on warfarin, hypertension, recurrent UTI's and seizures who presented to [facility] emergency department via EMS following an episode of lightheadedness and weakness, found by EMS to by hypotensive being tx for UTI and ARGENIS on CKD. Brief hospital course Pt was admitted with possible MS exaecerbation. CTH was negative. Pt was mainly treated for UTI as it was likely to contribute to her symptoms. pt was started on zosyn, and switched to ceftin and cipro. UCX grew Proteus and Morganella and Pseudomonas. After discussion with , given her Urostomy, it was considered colonizations, all of abx were stopped. Patient remained afebrile, asymptomatic after abx was stopped, deemed safe for d/c. Pt also showed [id number] ulcers, home home wound care will be started and follow up with Wound care center was recommended at the time of discharge. Weakness possibly multiple sclerosis exacerbation , present on admission. - Patient presented after lightheadedness and weakness. - CT brain did not reveal any acute intracranial abnormalities, as above. - Will treat acute UTI and wait to see if symptoms resolve prior to initiating steroids. If clinical symptoms do not improve would consider Solu-Medrol 1g for 3-5 days. - Continue Tizanidine 4 mg twice a day for muscle spasm. - F/u with outpatient Neurologist- Dr. Small Bacteriuria in the setting of Urostomy, POA, Procalcitonin 0.22, Lactic acid normal at 1.8. pt received ceftriaxone in the ED. Started Zosyn on 01/31 given history of Pseudomonas UTI's. Urine Cx shows Proteus and Morganella, both sensitive to cephalosporins. 02/03 changed to po antibiotics Ceftin and Ciprofloxacin, However, Last UCX grew again Pseudomonas, R to Cipro. -Given stable clinical condition, possible asymptomatic bacteriuria with urostomy, after discussion with , decided to stop all abx today -will monitor one more day without abx Hypertension, poa, active. - BP 140-150s, resumed atenolol 02/04, continue for now Stage 2 pressure ulcers on bilateral buttocks, present on admission. Active. Evidence of alf fungal infection. - wound consult 02/03 note- per conversation with outpatient Wound Center, patient has chronic wounds and requires maintenance plan for fungus and pressure injuries. Plan for today is to use son's remedy and assess for efficacy tomorrow. If wounds and skin are not improved, plan on Nystatin ointment and additional dressings. CWON to follow daily. - Will need to follow up at Wound Center upon discharge. - Social to arrange Home Health Wound Care 3/week. Chronic, stable, resolved Acute kidney injury on chronic kidney disease stage III, present on admission. Active. Patient's baseline creatinine 1.2-1.4 in 09/2016. Initial creatinine 1.56. -Renal function further improving, close to baseline. - Avoid nephrotoxins. - Ileostomy with Orozco catheter attached which is changed every two days. - c/w IVF, monitor kidney function History of DVT on warfarin, chronic, stable - Initial INR therapeutic at 2.12. Patient is aware of risks of bleeding while on anticoagulation. - Continue warfarin with dosing per pharmacist. Hyperlipidemia, present on admission. Stable. - Continue atorvastatin 20 mg daily at bedtime. Diabetes mellitus type II, insulin using. - Hemoglobin A1c 6.5% in 08/2016. Repeat hemoglobin A1c pending. - medium-dose correctional scale insulin. - Continue Humulin-N -100 Depression, present on admission. Stable. - Continue paroxetine 40 mg daily. Allergic rhinitis, present on admission. Stable. - Continue Flonase one spray intranasally daily as needed for allergic rhinitis. Hypothyroidism, present on admission. Stable. - Continue levothyroxine 25 g daily. Asthma, not present on admission. Stable. - Continue albuterol nebs every 4 hours as needed for shortness of breath. Seizure disorder, present on admission. Stable. - Continue carbamazepine 200 mg twice a day. Chronic pain with opiate habituation, present on admission. Stable. - Continue oxycodone 5-325 mg 4 times a day as needed for pain. Chronic constipation, present on admission. Stable. - Continue Colace 100 mg twice a day and MiraLAX 17 g twice a day. Vitamin B12 deficiency anemia, present on admission. Stable. - The patient receives vitamin B12 IV 1000 mg monthly, however, she does not believe she has received one of these in several months. - Initial hemoglobin 10.9 with an MCV of 101.7. - vitamin B12 254, Folate 5.3 - Hemodynamically stable and no acute signs of bleeding. Morbid obesity, present on admission. - BMI 55.2. - Ordered physical therapy evaluation and treatment. DVT PROPHYLAXIS: Warfarin Code status: full code Disposition: d/c tomorrow, Social to arrange Home PT and Home Health Wound Care 3/week. Follow up with your primary doctor in 1 week to recheck urine for resolution of UTI. Follow up with Neurology as outpatient, Dr Small. Exam Vital Signs (Last) Date Time Temp Pulse Resp B/P Pulse Ox O2 Delivery O2 Flow Rate FiO2 02/06/17 09:52 37.2 87 18 124/72 98 Room Air Exam pt was examined on the day of d/c Test 01/31/17 13:49 02/03/17 06:17 02/03/17 06:39 02/06/17 06:20 Hemoglobin A1c 6.5% (4.8-5.6) Lactic Acid Level 1.8mmol/L (0.4-2.0) Total Creatine Kinase 33U/L (21-215) Troponin T < 0.010ug/L (0.0-0.011) Vitamin B12 Level 254pg/mL (211-946) Folate 5.3ng/mL (>3.0) Magnesium Level 2.0mg/dL (1.6-2.6) Urine Color Yellow (YELLOW) Urine Appearance Hazy (CLEAR,HAZY) Urine pH 7.0 (5.0-8.0) Urine Specific Mitchell 1.010 (1.003-1.035) Urine Protein Tracemg/dL (NEG,TRACE) Urine Glucose (UA) Negativemg/dL (NEGATIVE) Urine Ketones Negativemg/dL (NEGATIVE) Urine Occult Blood Large (NEGATIVE) Urine Nitrite Positive (NEGATIVE) Urine Bilirubin Negative (NEGATIVE) Urine Urobilinogen Normalmg/dL (NORMAL) Urine Leukocyte Esterase Large (NEGATIVE) Urine RBC 11-50/hpf (0-2) Urine WBC 11-50/hpf (0-5) Urine Epithelial Cells Moderate/hpf (NONE-MOD) Urine Crystals None seen (NONE SEEN) Urine Bacteria Moderate/hpf (NONE-FEW) Urine Hyaline Casts None/lpf (NONE) Urine Granular Casts None seen (NONE SEEN) Urine Waxy Casts None seen (NONE SEEN) Urine Red Blood Cell Casts None seen (NONE SEEN) Urine White Blood Cell Casts None seen (NONE SEEN) Urine Mucus Present (None Seen) Urine Trichomonas None seen (NONE SEEN) Urine Yeast None (NONE SEEN) Urinalysis Comment None Urine Culture Reflexed Indicated White Blood Count 5.6th/mm3 (3.8-10.1) Red Blood Count 3.20mil/mm3 (3.90-5.20) Hemoglobin 10.0g/dL (12.0-15.6) Hematocrit 32.7% (35.0-46.0) Mean Corpuscular Volume 102.2fL (81-100) Mean Corpuscular Hemoglobin 31.3pg (27.0-35.0) Mean Corpuscular Hemoglobin Concent 30.6% (32.0-37.0) Red Cell Distribution Width 15.8% (12.3-15.4) Platelet Count 210bil/L (150-400) Neutrophils (%) (Auto) 55.4% (40-74) Lymphocytes (%) (Auto) 28.7% (14-46) Monocytes (%) (Auto) 11.2% (4-12) Eosinophils (%) (Auto) 4.3% (0-5) Basophils (%) (Auto) 0.2% (0-3) Prothrombin Time 18.6sec (8.1-12.5) Prothromb Time International Ratio 1.72ratio Sodium Level 145mEq/L (134-144) Potassium Level 4.1mEq/L (3.5-5.2) Chloride Level 117mEq/L (97-108) Carbon Dioxide Level 12mmol/L (18-29) Blood Urea Nitrogen 26mg/dL (8-27) Creatinine 1.06mg/dL (0.57-1.00) Estimat Glomerular Filtration Rate 74mL/min (>59) Glucose Level 124mg/dL (60-99) Calcium Level 8.3mg/dL (8.5-10.1) Total Bilirubin 0.2mg/dL (0.0-1.2) Aspartate Amino Transf (AST/SGOT) 17U/L (0-50) Alanine Aminotransferase (ALT/SGPT) 24U/L (0-32) Alkaline Phosphatase 76U/L (25-165) Total Protein 5.6g/dL (6.4-8.4) Albumin 3.2g/dL (3.4-5.0) Procalcitonin 0.12ng/mL (0.00-0.08) Microbiology Results Blood cultures 2 pending. Urine culture pending. . Discharge Medications Discharge Medications Atenolol (Atenolol) 25 Mg Tablet 12.5 MG PO DAILY (Reported) Atorvastatin (Lipitor) 20 Mg Tablet 20 MG PO HS (Reported) Cholecalciferol (Vitamin D3) (Vitamin D3) 5,000 Unit Tab.rapdis 2,000 UNIT PO DAILY (Reported) Docusate Sodium (Colace) 100 Mg Capsule 100 MG PO BID (Reported) Levothyroxine (Levothyroxine) 25 Mcg Tablet 25 MCG PO QAM (Reported) Magnesium Amino Acid Chelate (Magnesium) 100 Mg Tablet 100 MG PO BID (Reported) NPH, Human Insulin Isophane (HUMulin-N U100 Insulin Kwikpen) 100 Unit/1 Ml Insuln.pen 40-42 UNITS SUBQ QPM (Reported) Nystatin (Nystop) 60 Gm Powder 1 APPLIC TOPICAL BID (Reported) mix with A&D ointment and apply to bottom Paroxetine (Paroxetine) 40 Mg Tablet 40 MG PO DAILY (Reported) Polyethylene Glycol 3350 (Miralax) 17 Gm Powd.pack 17 GM PO BID (Reported) Tizanidine (Tizanidine) 4 Mg Tablet 4 MG PO BID (Reported) Ubidecarenone (Co Q-10) 100 Mg Capsule 100 MG PO DAILY (Reported) Vits A and D/White Pet/Lanolin (A and D Ointment) 42.5 Gm Oint...g. 1 APPLIC TOPICAL BID (Reported) mix with nystatin powder and apply to bottom Warfarin Sodium (Warfarin Sodium) 2 Mg Tablet 6 MG PO TREVIZO,MO,WE,TH,SA (Reported) 3 MG ON TUES/FRI & 6 MG ALL OTHER DAYS Warfarin Sodium (Warfarin Sodium) 2 Mg Tablet 3 MG PO ,FRI (Reported) 3 MG ON TUES/FRI & 6 MG ALL OTHER DAYS As needed Acetaminophen (Extra Strength Non-Aspirin) 500 Mg Tablet 1-2 EACH PO TID PRN PRN For Pain (Reported) Albuterol HFA (Proair HFA) 8.5 Gm Hfa.aer.ad 2 PUFFS INHALATION Q4H PRN PRN For Shortness of Breath (Reported) Calcium Carbonate (Tums) 500 Mg Tab.chew 1,000 MG PO QID PRN PRN For Indigestion (Reported) Fluticasone Propionate (Flonase Allergy Relief) 50 Mcg/Actuation Sims.susp 1 SPRAYS NS DAILY PRN PRN For Congestion (Reported) diphenhydrAMINE HCl (Benadryl) 25 Mg Capsule 50 MG PO QID PRN PRN allergies ( Reported) hydrOXYzine Hcl (HydrOXYzine Hcl) 25 Mg Tablet 0.5 MG PO TID PRN PRN For Itching (Reported) oxyCODONE (oxyCODONE) 5 Mg Tablet 5 MG PO QID PRN PRN For Pain (Reported) Additional med instructions NO MEDICATION WAS CHANGED, YOU DON'T NEED TO TAKE ANTIBIOTICS. Followup Plan Follow-up plan You were hospitalized with generalized weakness and possibility of urinary tract infection. You were treated supportively with antibiotics and IVF. Your condition improved significantly. Given low suspicion of ongoing urinary tract infection, your antibiotics were stopped during hospitalization. Please follow up with your doctor in 1week-2weeks please follow up with as scheduled Discharge Diet: No restrictions Discharge Activity: No restrictions Patient Instructions Drink plenty of water to maintain hydration. Follow-up Provider: Matilda Mendieta MD Follow-up with PCP in: 1 week Provider: Juancarlos Small MD Follow-up in: 4 weeks Moriah Benitez MD Feb 06, 2017 14:33
[2017-02-06] MEDS: A & D 42.5 Gm Ointment TOPICAL SCH (15:00)
[2017-02-06] MEDS ORDERED: MYCO EXT (15:15)
--- NOTE | 2017-02-06 15:51 | NUR ---
Discharge Patient discharged to her wheelchair with help of 2 assist and albert lift to home with son. Son spoke with Dr. Benitez prior to leaving to answer any remaining questions regarding her stay and follow up care. RN answered all questions and discussed new prescription.
== END 2017-02-06 15:45 | disposition home or self-care (01) | DRG 683 ==
LOC: EDUNIT# 13:12 → EDBD 13:12 → SED 13:12 → MOC 19:30 → MPC 02-01 16:57
PROVIDERS: ADMIT Internal Medicine; ATTEND Internal Medicine
DX: N17.9 Acute kidney failure, unspecified (principal); F11.20 Opioid dependence, uncomplicated; N39.0 Urinary tract infection, site not specified; Z68.43 Body mass index [BMI] 50.0-59.9, adult; I82.502 Chronic embolism and thrombosis of unspecified deep veins of left lower extremity; I69.951 Hemiplegia and hemiparesis following unspecified cerebrovascular disease affecting right dominant side; G35 Multiple sclerosis; E66.01 Morbid (severe) obesity due to excess calories; E11.9 Type 2 diabetes mellitus without complications; J30.9 Allergic rhinitis, unspecified; L89.322 Pressure ulcer of left buttock, stage 2; E86.0 Dehydration; I12.9 Hypertensive chronic kidney disease with stage 1 through stage 4 chronic kidney disease, or unspecified chronic kidney disease; N18.3 Chronic kidney disease, stage 3 (moderate); G40.909 Epilepsy, unspecified, not intractable, without status epilepticus; K59.09 Other constipation; D51.9 Vitamin B12 deficiency anemia, unspecified; G83.89 Other specified paralytic syndromes; Z87.891 Personal history of nicotine dependence; Z74.01 Bed confinement status; Z79.01 Long term (current) use of anticoagulants; Z79.51 Long term (current) use of inhaled steroids; Z79.4 Long term (current) use of insulin; Z93.2 Ileostomy status